=== PATIENT | female | born 2000 | race Hispanic/Latino ===

== ENCOUNTER 2024-06-25 18:26 | Emergency (ER) | payer OTHER ==
--- OUTSIDE RECORDS SUMMARY | 2024-06-25 18:32 | XMS REPORT | Continuity of Care Document ---
Author Name Unknown Address [address] [facility] [address] [id number] [facility] Address [address] [facility] [address] [place] [address] Care Team Providers Care Mica Sizer Name Role Phone Cirilo Ivy Attending Clinician Unavailable ELDA WOOD Attending Clinician UnavailNAA Haskins Attending Clinician Unavailab JOCELINE Gamble Attending Clinician Unavailab edi Marie Attending Clinician Unavailable LYUBOV PORTER Attending Clinician Unavaila NIDIA Love Attending Clinician UnavailLUCRETIA Sorensen Attending Clinician Unavailable EDLORES SOTO Attending Clinician Unavailab ASUNCION Cunha Attending Clinician Unavailable NGHIA PATIÑO Attending Clinician Unavailable KAY Attending Clinician Unavailable MALU HINES Attending Clinician Unavailable NATASHA FONTANEZ Attending Clinician Unavailab edi GARCIA Attending Clinician Unavailable JONAH BARAJAS Attending Clinician Unavailable S[place] Attending Clinician Unavail able DARLEEN SIMON Attending Clinician Unavailable JOSE DAVID MILLAN Attending Clinician Unavailable AMY ARECHIGA Attending Clinician Unavailable Cirilo Ivy Admitting Clinician Unavailable UNDEFINED Admitting Clinician Unavailable Cynthia Admitting Clinician Unavailable LYUBOV PORTER Admitting Clinician Unavaila nay VILLANUEVA Admitting Clinician Unavailable RADHA Admitting Clinician Unavailable Payers Payer Name Policy Type Policy Number Effective Date Expirati on Date Source [facility] MEDICAID STAR [id number] 2022 00:00:00 [facility] (MEDICAID REPLACEMENT - HMO) [id number] 2022 00:00:00 [place] [facility] [place] [id number] [place] [id number] [place] [facility] [id number] Problems Condition Name Condition Details Condition Category Status Onset Date Resolution Date Last Treatment Date Treating Clinician Comments Source Eczema Eczema Problem Active 5-02 00:00: 00 [facility] Scar of skin Scar of Skin Problem Active 5-02 00:00: 00 [facility] Iron deficiency anemia of Iron Deficiency Anemia of Problem Active 2022-10 1-02 00:00: 00 [facility] Chlamydia trachomati s infection in Chlamydia Trachomati s Infection in Problem Active 5-04 00:00: 00 [facility] Mild hyperemesi s-not delivered Mild Hyperemesi s-not Delivered Problem Active 4-13 00:00: 00 [facility] Low grade squamous intraepith elial lesion on cervical Papanicola ou smear Low Grade Squamous Intraepith elial Lesion on Cervical Papanicola ou Smear Problem Active 4-13 00:00: 00 [facility] Allergies, Adverse Reactions, Alerts Allergy Name Allergy Type Status Severity Reaction(s) Onset Date Inactive Date Treating Clinician Comments Source doxycycl ine DA Active MO MILLER 8-30 00:00: 00 [facility] No Known Allergie s DA Active U 8-28 00:00: 00 [facility] Social History Smoking Status Start Date Stop Date Source Never Smoker [facility] Medications Ordered Medication Name Filled Medication Name Start Date Stop Date Current Medication? Ordering Clinician Indication Dosage Frequency Signature (SIG) Comments Components Source Ferate 240 mg (27 mg iron) tablet TAKE 1 TABLET BY MOUTH TWICE DAILY Ferate 240 mg (27 mg iron) tablet TAKE 1 TABLET BY MOUTH TWICE DAILY No Ferate 240 mg (27 mg iron) tablet TAKE 1 TABLET BY MOUTH TWICE DAILY [facility] valacyclovi r 500 mg tablet TAKE 1 TABLET BY MOUTH EVERY DAY DIRECTED valacyclovi r 500 mg tablet TAKE 1 TABLET BY MOUTH EVERY DAY DIRECTED No valacyclov ir 500 mg tablet TAKE 1 TABLET BY MOUTH EVERY DAY [facility]ED [facility] triamcinolo ne acetonide 0.1 % topical cream APPLY THIN LAYER TOPICALLY TO THE AFFECTED AREA TWICE DAILY triamcinolo ne acetonide 0.1 % topical cream APPLY THIN LAYER TOPICALLY TO THE AFFECTED AREA TWICE DAILY No triamcinol one acetonide 0.1 % topical cream APPLY THIN LAYER TOPICALLY TO THE AFFECTED AREA TWICE DAILY [facility] Blisovi Fe 1/20 (28) 1 mg-20 mcg (21)/75 mg (7) tablet TAKE 1 TABLET BY MOUTH EVERY DAY [place] Fe 1/20 (28) 1 mg-20 mcg (21)/75 mg (7) tablet TAKE 1 TABLET BY MOUTH EVERY DAY No Blisovi Fe 1/20 (28) 1 mg-20 mcg (21)/75 mg (7) tablet TAKE 1 TABLET BY MOUTH EVERY DAY [facility] h Program Vital Signs Vital Name Observation Time Observation Value Comments S ource BMI (Body Mass Index) 2024-02-23 00:00:00 24.8 kg/m2 [facility] Height 2024-02-23 00:00:00 61 [in_i] [facility] Body Weight 2024-02-23 00:00:00 2096 [oz_av] [facility] BP Diastolic 2024-02-23 00:00:00 65 mm[Hg] [facility] BP Systolic 2024-02-23 00:00:00 102 mm[Hg] [facility] BP Diastolic 2023-12-19 00:00:00 74 mm[Hg] [facility] Height 2023-12-19 00:00:00 61 [in_i] [facility] BMI (Body Mass Index) 2023-12-19 00:00:00 24.4 kg/m2 [facility] Body Weight 2023-12-19 00:00:00 129 [lb_av] [facility] BP Systolic 2023-12-19 00:00:00 116 mm[Hg] [facility] BP Diastolic 2023-09-30 00:00:00 67 mm[Hg] [facility] Height 2023-09-30 00:00:00 61 [in_i] [facility] BP Systolic 2023-09-30 00:00:00 115 mm[Hg] [facility] BMI (Body Mass Index) 2023-09-30 00:00:00 28.7 kg/m2 [facility] Body Weight 2023-09-30 00:00:00 152 [lb_av] [facility] BP Diastolic 2023-09-23 00:00:00 69 mm[Hg] [facility] BP Systolic 2023-09-23 00:00:00 110 mm[Hg] [facility] Body Weight 2023-09-23 00:00:00 151 [lb_av] [facility] Height 2023-09-23 00:00:00 61 [in_i] [facility] BMI (Body Mass Index) 2023-09-23 00:00:00 28.5 kg/m2 [facility] Body Weight 2023-09-09 00:00:00 149.3 [lb_av] [facility] BMI (Body Mass Index) 2023-09-09 00:00:00 28.2 kg/m2 [facility] BP Diastolic 2023-09-09 00:00:00 74 mm[Hg] [facility] BP Systolic 2023-09-09 00:00:00 120 mm[Hg] [facility] Height 2023-09-09 00:00:00 61 [in_i] [facility] Body Weight 2023-08-26 00:00:00 153.9 [lb_av] [facility] BP Systolic 2023-08-26 00:00:00 117 mm[Hg] [facility] BP Diastolic 2023-08-26 00:00:00 64 mm[Hg] [facility] BMI (Body Mass Index) 2023-08-26 00:00:00 29.1 kg/m2 [facility] Height 2023-08-26 00:00:00 61 [in_i] [facility] BP Systolic 2023-07-29 00:00:00 113 mm[Hg] [facility] Height 2023-07-29 00:00:00 61 [in_i] [facility] BP Diastolic 2023-07-29 00:00:00 68 mm[Hg] [facility] BMI (Body Mass Index) 2023-07-29 00:00:00 28.8 kg/m2 [facility] Body Weight 2023-07-29 00:00:00 152.5 [lb_av] [facility] Body Weight 2023-06-24 00:00:00 147.8 [lb_av] [facility] Height 2023-06-24 00:00:00 61 [in_i] [facility] BP Systolic 2023-06-24 00:00:00 105 mm[Hg] [facility] BMI (Body Mass Index) 2023-06-24 00:00:00 27.9 kg/m2 [facility] BP Diastolic 2023-06-24 00:00:00 66 mm[Hg] [facility] Height 2023-05-27 00:00:00 61 [in_i] [facility] BP Systolic 2023-05-27 00:00:00 126 mm[Hg] [facility] BMI (Body Mass Index) 2023-05-27 00:00:00 28.2 kg/m2 [facility] Body Weight 2023-05-27 00:00:00 149 [lb_av] [facility] BP Diastolic 2023-05-27 00:00:00 82 mm[Hg] [facility] BP Diastolic 2023-05-05 00:00:00 74 mm[Hg] [facility] Height 2023-05-05 00:00:00 61 [in_i] [facility] BMI (Body Mass Index) 2023-05-05 00:00:00 27.8 kg/m2 [facility] BP Systolic 2023-05-05 00:00:00 115 mm[Hg] [facility] Body Weight 2023-05-05 00:00:00 147.1 [lb_av] [facility] BP Diastolic 2023-04-01 00:00:00 71 mm[Hg] [facility] Height 2023-04-01 00:00:00 61 [in_i] [facility] BMI (Body Mass Index) 2023-04-01 00:00:00 27.3 kg/m2 [facility] BP Systolic 2023-04-01 00:00:00 106 mm[Hg] [facility] Body Weight 2023-04-01 00:00:00 144.4 [lb_av] [facility] BP Diastolic 2023-02-24 00:00:00 69 mm[Hg] [facility] Height 2023-02-24 00:00:00 61 [in_i] [facility] BMI (Body Mass Index) 2023-02-24 00:00:00 27.5 kg/m2 [facility] BP Systolic 2023-02-24 00:00:00 105 mm[Hg] [facility] Body Weight 2023-02-24 00:00:00 145.7 [lb_av] [facility] BP Diastolic 2022-02-03 00:00:00 66 mm[Hg] [facility] Height 2022-02-03 00:00:00 61 [in_i] [facility] BMI (Body Mass Index) 2022-02-03 00:00:00 27.1 kg/m2 [facility] BP Systolic 2022-02-03 00:00:00 101 mm[Hg] [facility] Body Weight 2022-02-03 00:00:00 143.21 [lb_av] [facility] BP Diastolic 2022-01-20 00:00:00 61 mm[Hg] [facility] Height 2022-01-20 00:00:00 61 [in_i] [facility] BMI (Body Mass Index) 2022-01-20 00:00:00 27.2 kg/m2 [facility] BP Systolic 2022-01-20 00:00:00 103 mm[Hg] [facility] Body Weight 2022-01-20 00:00:00 143.9 [lb_av] [facility] BP Diastolic 2021-12-23 00:00:00 78 mm[Hg] [facility] Height 2021-12-23 00:00:00 61 [in_i] [facility] BMI (Body Mass Index) 2021-12-23 00:00:00 26.9 kg/m2 [facility] BP Systolic 2021-12-23 00:00:00 120 mm[Hg] [facility] Body Weight 2021-12-23 00:00:00 142.2 [lb_av] [facility] BP Diastolic 2021-12-15 00:00:00 76 mm[Hg] [facility] Height 2021-12-15 00:00:00 61 [in_i] [facility] BMI (Body Mass Index) 2021-12-15 00:00:00 26.8 kg/m2 [facility] BP Systolic 2021-12-15 00:00:00 118 mm[Hg] [facility] Body Weight 2021-12-15 00:00:00 142 [lb_av] [facility] Procedures Procedure Date / Time Performed Performing Clinician Source [id number] 2024-06-21 00:00:00 ANTHONY [facility] Delivery 2023-10-07 00:00:00 [facility] US, obstetric, limited 2023-09-23 00:00:00 [facility] US, obstetric, limited 2023-08-26 00:00:00 [facility] ULTRASOUND REPEAT 2023-07-28 00:00:00 [facility] US, obstetric, limited 2023-05-05 00:00:00 [facility] ULTRASOUND, UTERUS REAL TIME WITH IMAGE DOC, AND MATERNAL EVAL PLUS DETAILED ANATOMIC EXAMINATION, TRANSABDOMINAL APPROACH; SINGLE OR FIRST GESTATION 2023-05-05 00:00:00 [facility] US, obstetric, limited 2023-04-01 00:00:00 [facility] ULTRASOUND, UTERUS REAL TIME WITH IMAGE DOCUMENTAITON, TRANSVAGINAL 2023-02-24 00:00:00 [facility] ULTRASOUND, UTERUS REAL TIME WITH IMAGE DOCUMENTAITON, TRANSVAGINAL 2022-02-03 00:00:00 [facility] ULTRASOUND, UTERUS REAL TIME WITH IMAGE DOCUMENTAITON, TRANSVAGINAL 2022-01-20 00:00:00 [facility] Plan of Care Planned Activity Planned Date Details Comments Source Diagnostic Test Pending 2021-12-23 00:00:00 HIV 1 + 2, meaningful use set [code = HIV 1 + 2, meaningful use set] [facility] Diagnostic Test Pending 2021-12-23 00:00:00 RPR (rapid plasma reagin), serum [code = RPR (rapid plasma reagin), serum] [facility] Diagnostic Test Pending 2021-12-23 00:00:00 HBsAg (hepatitis B surface Ag), EIA, serum [code = HBsAg (hepatitis B surface Ag), EIA, serum] [facility] Diagnostic Test Pending 2021-12-23 00:00:00 cytology report, thin prep, smear or scraping, cervical or vaginal [code = cytology report, thin prep, smear or scraping, cervical or vaginal] [facility] Encounters Start Date/Time End Date/Time Encounter Type Admission Type Attending Clinicians Care Facility Care Department Encounter ID Source 2023-05-20 11:16:06 Outpatient [facility] [id number] [facility] 2023-05-13 11:09:58 Outpatient [facility] [id number] [facility] 2024-06-20 21:38:00 2024-06-25 00:47:00 Inpatient EM Cirilo Ivy [facility] [id number] [address] [place] [address] 2024-06-20 08:21:00 2024-06-20 18:05:00 Emergency ER ELDA WOOD [facility] [id number] [facility] 2024-05-21 09:51:00 2024-05-21 11:36:00 Emergency ER NAA LIM [facility] [id number] [facility] 2024-02-23 15:32:00 2024-02-23 15:32:00 Outpatient JOCELINE DE GUZMAN [facility] [id number] [facility] 2024-02-23 00:00:00 2024-02-23 00:00:00 Joceline Liao, CRIMINAL JUSTICE DEPARTMENT CHAIR: [address], [address], [place] [address] , Ph. MMG [facility] [id number] [facility] 2024-01-04 00:00:00 2024-01-04 00:00:00 Outpatient White_M MMG [facility] [id number] [facility] 2023-12-19 00:00:00 2023-12-19 00:00:00 Lyubov Porter MD: [address], [address], [place] [address] , Ph. [phone] MM[facility] [id number] [facility] 2023-12-16 00:00:00 2023-12-16 00:00:00 Outpatient White_M MMG [facility] [id number] [facility] 2023-10-13 00:00:00 2023-10-13 00:00:00 Outpatient White_M MMG MM[facility] [id number] [facility] 2023-10-06 19:24:00 2023-10-09 08:10:00 Inpatient LYUBOV [facility] [id number] [facility] 2023-09-30 00:00:00 2023-09-30 00:00:00 Lyubov Porter MD: [address], [address], [place] [address] , Ph. [phone] [facility] [id number] [facility] 2023-09-28 20:08:00 2023-09-28 22:05:00 Emergency ER LYUBOV PORTER [facility] [id number] [facility] 2023-09-26 00:00:00 2023-09-26 00:00:00 Outpatient White_M MMG [facility] [id number] [facility] 2023-09-23 00:00:00 2023-09-23 00:00:00 Lyubov Porter MD: [address], [address], [place] [address] , Ph. [phone] [facility] [id number] [facility] 2023-09-09 10:29:00 2023-09-09 11:20:00 Emergency ER LYUBOV PORTER [facility] [id number] [facility] 2023-09-09 00:00:00 2023-09-09 00:00:00 Lyubov Porter MD: [address], [address], [place] [address] , Ph. [phone] [facility] [id number] [facility] 2023-08-26 12:31:00 2023-08-26 15:00:00 Emergency ER LYUBOV PORTER [facility] [id number] [facility] 2023-08-26 00:00:00 2023-08-26 00:00:00 Lyubov Porter MD: [address], [address], [place] [address] , Ph. [phone] [facility] [id number] [facility] 2023-08-25 09:34:00 2023-08-25 13:50:00 Emergency ER NIDIA TORRES [facility] [id number] [facility] 2023-08-22 21:37:00 2023-08-22 23:10:00 Emergency ER LYUBOV PORTER [facility] [id number] [facility] 2023-08-02 00:00:00 2023-08-02 00:00:00 Outpatient White_M MMG MMG [id number] [facility] 2023-08-02 00:00:00 2023-08-02 00:00:00 Outpatient White_M MMG MMG [id number] [facility] 2023-08-02 00:00:00 2023-08-02 00:00:00 Outpatient White_M MMG MMG [id number] [facility] 2023-08-02 00:00:00 2023-08-02 00:00:00 Outpatient White_M MMG MMG [id number] [facility] 2023-07-29 09:21:00 2023-07-29 09:21:00 Outpatient DORIS PORTER LYUBOV [facility] [id number] [facility] 2023-07-29 00:00:00 2023-07-29 00:00:00 Outpatient White_M MMG MMG [id number] [facility] 2023-07-29 00:00:00 2023-07-29 00:00:00 Lyubov Porter MD: [address] [place] [address], [address], [place] [address] , Ph. [phone] MMG [facility] [id number] [facility] 2023-07-28 00:00:00 2023-07-28 00:00:00 Lyubov Porter MD: [address], [address], [place] [address] , Ph. [phone] MMG [facility] [id number] [facility] 2023-07-11 09:16:00 2023-07-11 11:00:00 Emergency ER GERMAN LYUBOV [facility] [id number] [facility] 2023-06-30 00:00:00 2023-06-30 00:00:00 Outpatient White_M MMG MMG [id number] [facility] 2023-06-30 00:00:00 2023-06-30 00:00:00 Outpatient White_M MMG MMG [id number] [facility] 2023-06-24 00:00:00 2023-06-24 00:00:00 [facility] [address], [address], [place] [address] , Ph. [phone] MMG [facility] [place] - [facility]BGYN [id number] [facility] 2023-05-27 10:09:00 2023-05-27 10:09:00 Outpatient DORIS LUCRETIA DAVIS [facility] [id number] [facility] 2023-05-27 00:00:00 2023-05-27 00:00:00 Outpatient White_M MMG MMG [id number] [facility] 2023-05-27 00:00:00 2023-05-27 00:00:00 Outpatient White_M MMG MMG [id number] [facility] 2023-05-27 00:00:00 2023-05-27 00:00:00 Lyubov Porter MD: [address], [address], [place] [address] , Ph. [phone] [facility] [id number] [facility] 2023-05-11 10:06:00 2023-05-11 12:21:00 Emergency ER ELDA WOOD [facility] [id number] [facility] 2023-05-05 00:00:00 2023-05-05 00:00:00 Lucretia Davis [facility]: [address], [address], [place] [address] , Ph. [phone] MMG [facility] [id number] [facility] 2023-05-02 19:27:00 2023-05-02 21:29:00 Emergency ER DELORES SOTO [facility] [id number] [facility] 2023-04-15 00:00:00 2023-04-15 00:00:00 Outpatient White_M MMG MMG [id number] [facility] 2023-04-15 00:00:00 2023-04-15 00:00:00 Outpatient White_M MMG MMG [id number] [facility] 2023-04-01 00:00:00 2023-04-01 00:00:00 Lucretia Davis [facility]-: [address], [address], [place] [address] , Ph. [phone] MMG [facility] [id number] [facility] 2023-03-18 22:24:00 2023-03-19 05:20:00 Emergency ER ASUNCION PRUITT [facility] [id number] [facility] 2023-03-11 00:00:00 2023-03-11 00:00:00 Outpatient White_M MMG MMG [id number] [facility] 2023-03-11 00:00:00 2023-03-11 00:00:00 Outpatient White_M MMG MMG [id number] [facility] 2023-02-24 13:11:00 2023-02-24 13:11:00 Outpatient DORIS WALKERPAPraveen NIDIA [facility] [id number] [facility] 2023-02-24 00:00:00 2023-02-24 00:00:00 Outpatient White_M MMG MMG [id number] [facility] 2023-02-24 00:00:00 2023-02-24 00:00:00 Nidia Torres MD: [address], [address], [place] [address] , Ph. [phone] MMG [facility] [id number] [facility] 2023-02-17 20:23:00 2023-02-18 00:50:00 Emergency ER ASUNCION PRUITT [facility] [id number] [facility] 2023-02-15 20:31:00 2023-02-15 21:36:00 Emergency ER NAA LIM [facility] [id number] [facility] 2023-02-04 03:22:00 2023-02-04 03:41:00 Emergency ER ELDA WOOD [facility] [id number] [facility] 2022-12-21 19:08:00 2022-12-21 23:40:00 Emergency ER NAA LIM [facility] [id number] [facility] 2022-12-06 06:30:00 2022-12-06 08:05:00 Emergency ER NGHIA PATIÑO [facility] [id number] [facility] 2022-06-18 00:00:00 2022-06-18 00:00:00 Outpatient LISTER_MELI NATALIE [facility] [id number] [facility] 2022-06-18 00:00:00 2022-06-18 00:00:00 Outpatient LISTER_MELI SSA [facility] [id number] [facility] 2022-02-08 01:47:00 2022-02-08 04:37:00 Emergency ER MALU HINES [facility] [id number] [facility] 2022-02-06 14:09:00 2022-02-06 17:04:00 Emergency ER NAA LIM [facility] [id number] [facility] 2022-02-03 16:12:00 2022-02-03 16:12:00 Outpatient LUCRETIA STOUT [facility] [id number] [facility] 2022-02-03 00:00:00 2022-02-03 00:00:00 Outpatient White_M MMG [facility] [id number] [facility] 2022-02-03 00:00:00 2022-02-03 00:00:00 Lucretiashane Davis [employer] [employer]: [address], [place] [address] , Ph. [phone] MMG [facility] [id number] [facility] 2022-01-29 05:01:00 2022-01-29 05:01:00 Outpatient White_[place] G [id number] [facility] 2022-01-22 15:25:00 2022-01-22 15:25:00 Outpatient LUCRETIA STOUT [facility] [id number] [facility] 2022-01-21 11:14:00 2022-01-21 11:14:00 Outpatient White_M MMG MMG [id number] [facility] 2022-01-20 16:01:00 2022-01-20 16:01:00 Outpatient LUCRETIA STOUT [facility] [id number] [facility] 2022-01-20 03:48:00 2022-01-20 03:48:00 Outpatient [facility] [id number] [facility] 2022-01-20 00:00:00 2022-01-20 00:00:00 JOHNATHAN ChongP-BC: [address] [facility] [address], [place] [address] , Ph. [phone] [facility] [place] [id number] [facility] 2022-01-17 11:45:00 2022-01-17 13:15:00 Emergency ER NATASHA FONTANEZ [facility] [id number] [facility] 2021-12-23 05:48:00 2021-12-23 05:48:00 Outpatient AMADO ESTRADA [facility] [id number] [facility] 2021-12-23 00:00:00 2021-12-23 00:00:00 Joceline Millan, CRIMINAL JUSTICE DEPARTMENT CHAIR: [address], [place] [address] , Ph. [facility] HOP - [facility] TRANSITIONAL CARE NURSE [id number] [facility] 2021-12-15 03:55:00 2021-12-15 03:55:00 Outpatient ALXEI NATALIE [facility] [id number] [facility] 2021-12-15 00:00:00 2021-12-15 00:00:00 Joceline Millan, CRIMINAL JUSTICE DEPARTMENT CHAIR: [address], [place] [address] , Ph. [facility] HOP - [facility] TRANSITIONAL CARE NURSE [id number] [facility] 2021-12-09 05:49:00 2021-12-09 05:49:00 Outpatient KAMI_JADAI SSA [facility] [id number] [facility] 2021-11-02 09:41:00 2021-11-02 09:41:00 Outpatient NEESE_NICANOR TXMIGUEL [facility] [id number] [facility] 2021-08-06 08:07:00 2021-08-06 11:28:00 Emergency ER JONAH BARAJAS [facility] [id number] [facility] 2020-03-14 03:27:00 2020-03-14 03:27:00 Outpatient NEESE_NICANOR TXMIGUEL [facility] [id number] [facility] 2020-03-13 03:16:00 2020-03-13 03:16:00 Outpatient NEESE_NICANOR LEVIN [facility] [id number] [facility] 2019-11-20 13:30:00 2019-11-20 14:16:00 Emergency ER SAURABH [facility] [id number] [facility] 2019-04-28 14:07:00 2019-04-28 15:15:00 Emergency ER DARLEEN SIMON [facility] [id number] [facility] 2019-04-14 01:59:00 2019-04-14 05:10:00 Emergency ER MONTY JOSE DAVID [facility] [id number] [facility] 2019-03-24 07:08:00 2019-03-24 10:15:00 Emergency ER AMY ARECHIGA [facility] [id number] [facility] Results Test Description Test Time Test Comments Results Result Co mments Source [id number] 10:27:00* Test Item Value Reference Range Interpretation Comme nts FERRITIN (test code = BERNARD) 221.8 ng/mL 11.0-306.8 N COMPREHENSIVE METABOLIC [id number] 04:57:00* Test Item Value Reference Range Interpretation Comme nts SODIUM (test code = NA) 144 mEq/L 134-147 N POTASSIUM (test code = K) 3.6 mEq/L 3.4-5.0 N CHLORIDE (test code = CL) 109 mEq/L 100-108 H CARBON DIOXIDE (test code = CO2) 26 mEq/l 21-33 N ANION GAP (test code = GAP) 13 0-20 N GLUCOSE (test code = GLU) 94 mg/dL 77-141 N BLOOD UREA NITROGEN (test code = BUN) 6 mg/dL 7-25 L GLOMERULAR FILTRATION RATE (test code = GFR) 129.3 110-120 H The Glomerular Filtration Rate is a calculated parameterbased on serum Creatinine, patient age and sex. GFR valuesless than 60 mL/min/1.73 square meters are indicative ofChronic Kidney Disease. Values less than 15 mL/min/1.73square meters indicate Kidney failure. The calculation forGFR is based on the CKD-EPI (2020) calculation. This formulais race indifferent and is the recommended formula for GFRby the National Kidney Foundation for Adults.The GFR will not calculate if the sex is unknown or if thepatient's age is <18 years. CREATININE (test code = CREAT) 0.6 mg/dL 0.6-1.3 N TOTAL PROTEIN (test code = PROT) 6.3 g/dL 6.4-8.2 L ALBUMIN (test code = ALB) 2.80 g/dL 3.4-5.0 L CALCIUM (test code = CA) 9.1 mg/dL 8.0-10.5 N BILIRUBIN TOTAL (test code = BILT) 0.20 mg/dL 0.0-1.0 N SGOT/AST (test code = AST) 21 IUnit/L 8-34 N SGPT/ALT (test code = ALT) 25 IUnit/L 10-49 N ALKALINE PHOSPHATASE TOTAL (test code = ALKP) 76 IUnit/L 20-125 N [id number] 04:57:00* Test Item Value Reference Range Interpretation Comme nts PHOSPHOROUS (test code = PHOS) 4.3 MG/DL 2.5-4.9 N [id number] 04:57:00* Test Item Value Reference Range Interpretation Comme nts MAGNESIUM (test code = MAG) 1.68 mg/dL 1.6-2.6 N CALCIUM [id number] 04:57:00* Test Item Value Reference Range Interpretation Comme nts CALCIUM IONIZED (test code = JOSE ANGEL) 1.18 MMOL/L 1.09-1.30 N CBC W/AUTO [id number] 03:44:00* Test Item Value Reference Range Interpretation Comme nts WHITE BLOOD CELL (test code = WBC) 5.2 x10 3/uL 4.5-11.0 N RED BLOOD CELL (test code = RBC) 2.46 x10 6/uL 3.54-5.02 L HEMOGLOBIN (test code = HGB) 7.3 g/dL 11.0-15.0 L HEMATOCRIT (test code = HCT) 23.0 % 33.0-45.0 L MEAN CELL VOLUME (test code = MCV) 93.5 fL 81.0-99.0 N MEAN CELL HGB (test code = MCH) 29.7 pg 27.0-33.0 N MEAN CELL HGB CONCETRATION (test code = MCHC) 31.7 g/dL 33.0-37.0 L RED CELL DISTRIBUTION WIDTH CV (test code = RDW) 13.6 % 11.5-14.5 N RED CELL DISTRIBUTION WIDTH SD (test code = RDW-SD) 46.7 fL 37.0-54.0 N PLATELET COUNT (test code = PLT) 184 x10 3/uL 150-400 N MEAN PLATELET VOLUME (test c ode = MPV) 13.0 fL 7.0-9.0 H NEUTROPHIL % (test code = NT%) 42.7 % 56.0-77.0 L IMMATURE GRANULOCYTE % (test code = IG%) 0.2 % 0.0-2.0 N LYMPHOCYTE % (test code = LY%) 51.0 % 14.0-32.0 H MONOCYTE % (test code = MO%) 4.1 % 4.8-9.0 L EOSINOPHIL % (test code = EO%) 1.4 % 0.3-3.7 N BASOPHIL % (test code = BA%) 0.6 % 0.0-2.0 N NUCLEATED RBC % (test code = NRBC%) 0.0 % 0-0 N NEUTROPHIL # (test code = NT#) 2.22 x10 3/uL 2.0-7.6 N IMMATURE GRANULOCYTE # (test code = IG#) 0.01 x10 3/uL 0.00-0.03 N LYMPHOCYTE # (test code = LY#) 2.64 x10 3/uL 1.0-3.8 N MONOCYTE # (test code = MO#) 0.21 x10 3/uL 0.1-0.8 N EOSINOPHIL # (test code = EO#) 0.07 x10 3/uL 0.0-0.2 N BASOPHIL # (test code = BA#) 0.03 x10 3/uL 0.0-0.2 N NUCLEATED RBC # (test code = NRBC#) 0.00 x10 3/uL 0.0-0.1 N CALCIUM [id number] 11:08:00* Test Item Value Reference Range Interpretation Comme nts CALCIUM IONIZED (test code = JOSE ANGEL) 1.11 mmol/L 1.09-1.30 CALCIUM [id number] 11:08:00* Test Item Value Reference Range Interpretation Comme nts CALCIUM IONIZED (test code = JOSE ANGEL) 1.11 mmol/L 1.09-1.30 N COMPREHENSIVE METABOLIC [id number] 07:02:00* Test Item Value Reference Range Interpretation Comme nts SODIUM (test code = NA) 141 mEq/L 134-147 N POTASSIUM (test code = K) 3.7 mEq/L 3.4-5.0 N CHLORIDE (test code = CL) 108 mEq/L 100-108 N CARBON DIOXIDE (test code = CO2) 26 mEq/l 21-33 N ANION GAP (test code = GAP) 10 0-20 N GLUCOSE (test code = GLU) 98 mg/dL 77-141 N BLOOD UREA NITROGEN (test code = BUN) 6 mg/dL 7-25 L GLOMERULAR FILTRATION RATE (test code = GFR) 129.3 110-120 H The Glomerular Filtration Rate is a calculated parameterbased on serum Creatinine, patient age and sex. GFR valuesless than 60 mL/min/1.73 square meters are indicative ofChronic Kidney Disease. Values less than 15 mL/min/1.73square meters indicate Kidney failure. The calculation forGFR is based on the CKD-EPI (2020) calculation. This formulais race indifferent and is the recommended formula for GFRby the National Kidney Foundation for Adults.The GFR will not calculate if the sex is unknown or if thepatient's age is <18 years. CREATININE (test code = CREAT) 0.6 mg/dL 0.6-1.3 N TOTAL PROTEIN (test code = PROT) 5.7 g/dL 6.4-8.2 L ALBUMIN (test code = ALB) 2.50 g/dL 3.4-5.0 L CALCIUM (test code = CA) 8.7 mg/dL 8.0-10.5 N BILIRUBIN TOTAL (test code = BILT) < 0.20 mg/dL 0.0-1.0 N SGOT/AST (test code = AST) 18 IUnit/L 8-34 N SGPT/ALT (test code = ALT) 19 IUnit/L 10-49 N ALKALINE PHOSPHATASE TOTAL (test code = ALKP) 66 IUnit/L 20-125 N [id number] 07:02:00* Test Item Value Reference Range Interpretation Comme nts PHOSPHOROUS (test code = PHOS) 3.0 MG/DL 2.5-4.9 N [id number] 07:02:00* Test Item Value Reference Range Interpretation Comme nts MAGNESIUM (test code = MAG) 1.78 mg/dL 1.6-2.6 N CBC W/AUTO [id number] 05:14:00* Test Item Value Reference Range Interpretation Comme nts WHITE BLOOD CELL (test code = WBC) 6.3 x10 3/uL 4.5-11.0 N RED BLOOD CELL (test code = RBC) 2.86 x10 6/uL 3.54-5.02 L HEMOGLOBIN (test code = HGB) 8.6 g/dL 11.0-15.0 L HEMATOCRIT (test code = HCT) 26.8 % 33.0-45.0 L MEAN CELL VOLUME (test code = MCV) 93.7 fL 81.0-99.0 N MEAN CELL HGB (test code = MCH) 30.1 pg 27.0-33.0 N MEAN CELL HGB CONCETRATION (test code = MCHC) 32.1 g/dL 33.0-37.0 L RED CELL DISTRIBUTION WIDTH CV (test code = RDW) 13.4 % 11.5-14.5 N RED CELL DISTRIBUTION WIDTH SD (test code = RDW-SD) 46.0 fL 37.0-54.0 N PLATELET COUNT (test code = PLT) 150 x10 3/uL 150-400 N MEAN PLATELET VOLUME (test c ode = MPV) 12.5 fL 7.0-9.0 H NEUTROPHIL % (test code = NT%) 56.1 % 56.0-77.0 N IMMATURE GRANULOCYTE % (test code = IG%) 0.2 % 0.0-2.0 N LYMPHOCYTE % (test code = LY%) 36.6 % 14.0-32.0 H MONOCYTE % (test code = MO%) 6.0 % 4.8-9.0 N EOSINOPHIL % (test code = EO%) 0.8 % 0.3-3.7 N BASOPHIL % (test code = BA%) 0.3 % 0.0-2.0 N NUCLEATED RBC % (test code = NRBC%) 0.0 % 0-0 N NEUTROPHIL # (test code = NT#) 3.55 x10 3/uL 2.0-7.6 N IMMATURE GRANULOCYTE # (test code = IG#) 0.01 x10 3/uL 0.00-0.03 N LYMPHOCYTE # (test code = LY#) 2.31 x10 3/uL 1.0-3.8 N MONOCYTE # (test code = MO#) 0.38 x10 3/uL 0.1-0.8 N EOSINOPHIL # (test code = EO#) 0.05 x10 3/uL 0.0-0.2 N BASOPHIL # (test code = BA#) 0.02 x10 3/uL 0.0-0.2 N NUCLEATED RBC # (test code = NRBC#) 0.00 x10 3/uL 0.0-0.1 N SED RATE [id number] 12:53:00* Test Item Value Reference Range Interpretation Comme nts SED RATE WESTERGREN (test co de = SEDW) 69 mm/hr 0-20 H CREATINE KINASE (CK)2024-06-22 12:09:00* Test Item Value Reference Range Interpretation Comme nts CREATINE KINASE (CK) (test code = CK) 47 Units/L 34-145 N SPECIMEN SLIGHT LY HEMOLYZED.Results known to be adversely affected by hemolysis are: Potassium Magnesium LDH Phosphorus C REACTIVE [id number] 12:08:00* Test Item Value Reference Range Interpretation Comme nts C REACTIVE PROTEIN (test cod e = CRP) 223.0 mg/L <10.0 H VANCOMYCIN [id number] 12:07:00* Test Item Value Reference Range Interpretation Comme nts VANCOMYCIN TROUGH (test code = VANCT) < 3.0 mcg/mL 10.0-20.0 L 10-15 mcg/mL - Cellulitis, Urinary Tract Infection. 15-20 mcg/mL - Bacteremia, Infective Endocarditis, Meningitis, Osteomyelitis, Pneumonia, Severe Skin/Soft-Tissue Infection, Spinal Abscess. COMMENTS: Please draw 30 minutes BEFORE giving dose of vancomycinCOMPREHENSIVE METABOLIC [id number] 04:30:00* Test Item Value Reference Range Interpretation Comme nts SODIUM (test code = NA) 137 mEq/L 134-147 N POTASSIUM (test code = K) 3.6 mEq/L 3.4-5.0 N CHLORIDE (test code = CL) 110 mEq/L 100-108 H CARBON DIOXIDE (test code = CO2) 25 mEq/l 21-33 N ANION GAP (test code = GAP) 6 0-20 N GLUCOSE (test code = GLU) 108 mg/dL 77-141 N BLOOD UREA NITROGEN (test code = BUN) 6 mg/dL 7-25 L GLOMERULAR FILTRATION RATE (test code = GFR) 129.3 110-120 H The Glomerular Filtration Rate is a calculated parameterbased on serum Creatinine, patient age and sex. GFR valuesless than 60 mL/min/1.73 square meters are indicative ofChronic Kidney Disease. Values less than 15 mL/min/1.73square meters indicate Kidney failure. The calculation forGFR is based on the CKD-EPI (202) calculation. This formulais race indifferent and is the recommended formula for GFRby the National Kidney Foundation for Adults.The GFR will not calculate if the sex is unknown or if thepatient's age is <18 years. CREATININE (test code = CREAT) 0.6 mg/dL 0.6-1.3 N TOTAL PROTEIN (test code = PROT) 5.7 g/dL 6.4-8.2 L ALBUMIN (test code = ALB) 2.50 g/dL 3.4-5.0 L CALCIUM (test code = CA) 8.4 mg/dL 8.0-10.5 N BILIRUBIN TOTAL (test code = BILT) 0.20 mg/dL 0.0-1.0 N SGOT/AST (test code = AST) 23 IUnit/L 8-34 N SGPT/ALT (test code = ALT) 21 IUnit/L 10-49 ALKALINE PHOSPHATASE TOTAL (test code = ALKP) 65 IUnit/L 20-125 N [id number] 04:30:00* Test Item Value Reference Range Interpretation Comme nts PHOSPHOROUS (test code = PHOS) 2.9 MG/DL 2.5-4.9 [id number] 04:30:00* Test Item Value Reference Range Interpretation Comme nts MAGNESIUM (test code = MAG) 1.67 mg/dL 1.6-2.6 N CALCIUM [id number] 04:30:00* Test Item Value Reference Range Interpretation Comme nts CALCIUM IONIZED (test code = JOSE ANGEL) 1.15 MMOL/L 1.09-1.30 N CBC W/AUTO [id number] 04:00:00* Test Item Value Reference Range Interpretation Comme nts WHITE BLOOD CELL (test code = WBC) 9.3 x10 3/uL 4.5-11.0 N RED BLOOD CELL (test code = RBC) 2.92 x10 6/uL 3.54-5.02 L HEMOGLOBIN (test code = HGB) 8.8 g/dL 11.0-15.0 L HEMATOCRIT (test code = HCT) 27.0 % 33.0-45.0 L MEAN CELL VOLUME (test code = MCV) 92.5 fL 81.0-99.0 N MEAN CELL HGB (test code = MCH) 30.1 pg 27.0-33.0 N MEAN CELL HGB CONCETRATION (test code = MCHC) 32.6 g/dL 33.0-37.0 L RED CELL DISTRIBUTION WIDTH CV (test code = RDW) 13.2 % 11.5-14.5 N RED CELL DISTRIBUTION WIDTH SD (test code = RDW-SD) 44.6 fL 37.0-54.0 N PLATELET COUNT (test code = PLT) 136 x10 3/uL 150-400 L MEAN PLATELET VOLUME (test c ode = MPV) 11.7 fL 7.0-9.0 H NEUTROPHIL % (test code = NT%) 66.0 % 56.0-77.0 N IMMATURE GRANULOCYTE % (test code = IG%) 0.3 % 0.0-2.0 N LYMPHOCYTE % (test code = LY%) 24.2 % 14.0-32.0 N MONOCYTE % (test code = MO%) 8.9 % 4.8-9.0 N EOSINOPHIL % (test code = EO%) 0.3 % 0.3-3.7 N BASOPHIL % (test code = BA%) 0.3 % 0.0-2.0 N NUCLEATED RBC % (test code = NRBC%) 0.0 % 0-0 N NEUTROPHIL # (test code = NT#) 6.11 x10 3/uL 2.0-7.6 N IMMATURE GRANULOCYTE # (test code = IG#) 0.03 x10 3/uL 0.00-0.03 N LYMPHOCYTE # (test code = LY#) 2.24 x10 3/uL 1.0-3.8 N MONOCYTE # (test code = MO#) 0.82 x10 3/uL 0.1-0.8 H EOSINOPHIL # (test code = EO#) 0.03 x10 3/uL 0.0-0.2 N BASOPHIL # (test code = BA#) 0.03 x10 3/uL 0.0-0.2 N NUCLEATED RBC # (test code = NRBC#) 0.00 x10 3/uL 0.0-0.[id number] 20:39:00* Test Item Value Reference Range Interpretation Comme nts CSF TUBE # (test code = BFCSFT) TUBE #3 - CELL COUNT CSF APPEARANCE (test code = APPCSF) CLEAR CLEAR CSF TOTAL NUCLEATED CELL COUNT (test code = WBCCSF) 1 MM3 0-5 N CSF RBC (test code = RBCCSF) 418 MM3 0-0 H CSF POLY (test code = POLYCSF) 13 % 0-7 H CSF LYMPHOCYTE (test code = LYMPHCSF) 74 % 28-96 N CSF MONOCYTE (test code = MONOCSF) 13 % 16-56 L CSF EOSINOPHIL (test code = EOSCSF) 0 % CSF BASOPHIL (test code = BASOCSF) 0 % CSF MACROPHAGE (test code = MACCSF) 0 % COMMENTS: PLEASE USE TUBE #3CSF TOTAL [id number] 20:39:00* Test Item Value Reference Range Interpretation Comme nts CSF TOTAL PROTEIN (test code = PROTCSF) TEST NOT PERFORMED mg/dL 15-45 COMMENTS: PLEASE USE TUBE #3CSF [id number] 16:48:00* Test Item Value Reference Range Interpretation Comme nts CSF COLOR (test code = COLCSF) COLORLESS COLORLESS CSF TUBE # (test code = TUBECSF) TUBE #1 - GLU/PROT CSF GLUCOSE (test code = GLUCSF) 63 MG/DL 40-80 N CSF TOTAL PROTEIN (test code = PROTCSF) 30.0 mg/dL 15-45 N COMMENTS: PLEASE USE TUBE #2AB HIV 1 12:38:00* Test Item Value Reference Range Interpretation Comme nts AB HIV 1 2 (test code = QDK25HB) Nonreactive Nonreactive COMPREHENSIVE METABOLIC [id number] 12:16:00* Test Item Value Reference Range Interpretation Comme nts SODIUM (test code = NA) 133 mEq/L 134-147 L POTASSIUM (test code = K) 3.9 mEq/L 3.4-5.0 N CHLORIDE (test code = CL) 106 mEq/L 100-108 N CARBON DIOXIDE (test code = CO2) 24 mEq/l 21-33 N ANION GAP (test code = GAP) 7 0-20 N GLUCOSE (test code = GLU) 109 mg/dL 77-141 N BLOOD UREA NITROGEN (test code = BUN) 8 mg/dL 7-25 N GLOMERULAR FILTRATION RATE (test code = GFR) 124.6 110-120 H The Glomerular Filtration Rate is a calculated parameterbased on serum Creatinine, patient age and sex. GFR valuesless than 60 mL/min/1.73 square meters are indicative ofChronic Kidney Disease. Values less than 15 mL/min/1.73square meters indicate Kidney failure. The calculation forGFR is based on the CKD-EPI (2021) calculation. This formulais race indifferent and is the recommended formula for GFRby the National Kidney Foundation for Adults.The GFR will not calculate if the sex is unknown or if thepatient's age is <18 years. CREATININE (test code = CREAT) 0.7 mg/dL 0.6-1.3 N TOTAL PROTEIN (test code = PROT) 6.5 g/dL 6.4-8.2 N ALBUMIN (test code = ALB) 3.10 g/dL 3.4-5.0 L CALCIUM (test code = CA) 8.7 mg/dL 8.0-10.5 N BILIRUBIN TOTAL (test code = BILT) 0.40 mg/dL 0.0-1.0 N SGOT/AST (test code = AST) 16 IUnit/L 8-34 N SGPT/ALT (test code = ALT) 11 IUnit/L 10-49 N ALKALINE PHOSPHATASE TOTAL (test code = ALKP) 75 IUnit/L 20-125 N COMMENTS: [id number] 12:16:00* Test Item Value Reference Range Interpretation Comme nts PHOSPHOROUS (test code = PHOS) 1.9 MG/DL 2.5-4.9 L COMMENTS: [id number] 12:16:00* Test Item Value Reference Range Interpretation Comme nts MAGNESIUM (test code = MAG) 1.78 mg/dL 1.6-2.6 N COMMENTS: CSFTHYROID STIMULATING [id number] 12:16:00* Test Item Value Reference Range Interpretation Comme nts THYROID STIMULATING HORMONE (test code = TSH) 1.28 0.42-5.47 N Result s in osito-International Units/mL COMMENTS: CSFTROP-I HIGH [id number] 12:16:00* Test Item Value Reference Range Interpretation Comme nts TROP-I HIGH SENSITIVITY (test code = TROPIHS) < 3 ng/L 0-34 N CAUTION: Units o f the current test methodology (ng/L) differfrom the prior test methodology (ng/mL) by a factor of 1000. 99th Percentile Upper Reference Limit (URL): Females: 34 ng/LMales: 54 ng/L In order to distinguish acute elevations of high sensitivitytroponin from other clinical conditions, the FourthUniversal Definition of Myocardial Infarction stressesclinical assessment and the demonstration of a rise and/orfall in serial troponin results above the URL. These results were obtained using [employer] IM TnIHreagent. Results from different methodologies should not becompared to one another as quantitative results and URLs mayvary by method. COMMENTS: CSFCALCIUM [id number] 12:16:00* Test Item Value Reference Range Interpretation Comme [facility] CALCIUM IONIZED (test code = JOSE ANGEL) 1.12 MMOL/L 1.09-1.30 N COMMENTS: [id number] 12:09:00* Test Item Value Reference Range Interpretation Comme nts AMMONIA (test code = AMM) 11 umol/L 11-35 N LACTIC [id number] 12:09:00* Test Item Value Reference Range Interpretation Comme nts LACTIC ACID (test code = LACT) 0.8 mmol/L 0.4-1.9 N PROTHROMBIN [id number] 11:54:00* Test Item Value Reference Range Interpretation Comme nts PROTHROMBIN TIME PATIENT (test code = PTP) 16.1 SECONDS 9.3-12.9 H INTERNATIONAL NORMAL RATIO (test code = INR) 1.5 0.8-1.2 H TARGET INR BY INDICATION Indication INR1. Prophylaxis of venous thrombosis 2.0 - 3.0 (orthopedic surgery), Prophylaxis of venous thrombosis (other than high-risk surgery), Treatment of Deep Vein Thrombosis/Pulmonary Embolism, Prevention of systemic embolism - Tissue heart valves, Acute Myocardial Infarction (to prevent systemic embolism), Valvular heart disease, Atrial Fibrillation, Bileaflet mechanical valve in aortic position.2. Mechanical prosthetic valves (high risk), 2.5 - 3.5 Presence of Lupus Anticoagulant or Antiphospholipid Antibodies, Prevention of systemic embolism - Acute Myocardial Infarction (to prevent recurrent infarct). THROMBOPLASTIN TIME [id number] 11:54:00* Test Item Value Reference Range Interpretation Comme [facility] THROMBOPLASTIN TIME PARTIAL (test code = PTT) 34.3 Seconds 25.0-39.5 N Therapeutic Rang e: 50.4 - 88.3 Seconds Effective 02/06/2019 CBC W/AUTO [id number] 11:41:00* Test Item Value Reference Range Interpretation Comme [facility] WHITE BLOOD CELL (test code = WBC) 10.7 x10 3/uL 4.5-11.0 N RED BLOOD CELL (test code = RBC) 3.31 x10 6/uL 3.54-5.02 L HEMOGLOBIN (test code = HGB) 9.9 g/dL 11.0-15.0 L HEMATOCRIT (test code = HCT) 30.9 % 33.0-45.0 L MEAN CELL VOLUME (test code = MCV) 93.4 fL 81.0-99.0 N MEAN CELL HGB (test code = MCH) 29.9 pg 27.0-33.0 N MEAN CELL HGB CONCETRATION (test code = MCHC) 32.0 g/dL 33.0-37.0 L RED CELL DISTRIBUTION WIDTH CV (test code = RDW) 13.2 % 11.5-14.5 N RED CELL DISTRIBUTION WIDTH SD (test code = RDW-SD) 45.3 fL 37.0-54.0 N PLATELET COUNT (test code = PLT) 155 x10 3/uL 150-400 N MEAN PLATELET VOLUME (test c ode = MPV) 11.8 fL 7.0-9.0 H NEUTROPHIL % (test code = NT%) 80.4 % 56.0-77.0 H IMMATURE GRANULOCYTE % (test code = IG%) 0.3 % 0.0-2.0 N LYMPHOCYTE % (test code = LY%) 11.4 % 14.0-32.0 L MONOCYTE % (test code = MO%) 7.7 % 4.8-9.0 N EOSINOPHIL % (test code = EO%) 0.0 % 0.3-3.7 L BASOPHIL % (test code = BA%) 0.2 % 0.0-2.0 N NUCLEATED RBC % (test code = NRBC%) 0.0 % 0-0 N NEUTROPHIL # (test code = NT#) 8.61 x10 3/uL 2.0-7.6 H IMMATURE GRANULOCYTE # (test code = IG#) 0.03 x10 3/uL 0.00-0.03 N LYMPHOCYTE # (test code = LY#) 1.22 x10 3/uL 1.0-3.8 N MONOCYTE # (test code = MO#) 0.83 x10 3/uL 0.1-0.8 H EOSINOPHIL # (test code = EO#) 0.00 x10 3/uL 0.0-0.2 N BASOPHIL # (test code = BA#) 0.02 x10 3/uL 0.0-0.2 N NUCLEATED RBC # (test code = NRBC#) 0.00 x10 3/uL 0.0-0.1 N RESPIRATORY VIRUS PANEL [id number] 04:47:00* Test Item Value Reference Range Interpretation Comments RSV A PCR (test code = RSV A) Negative Negative RSV B PCR (test code = RSV B) Negative Negative INFLUENZA A (test code = FLUAPCR) Negative Negative INFLUENZA A SUBTYPE H1 (test code = FLUAH1) Negative Negative INFLUENZA A SUBTYPE H3 (test code = FLUAH3) Negative Negative INFLUENZA B (test code = FLUBPCR) Negative Negative PARAINFLUENZA TYPE 1 PCR (test code = PIF1) Negative Negative PARAINFLUENZA TYPE 2 PCR (test code = PIF2) Negative Negative PARAINFLUENZA TYPE 3 PCR (test code = PIF3) Negative Negative PARAINFLUENZA TYPE 4 PCR (test code = PIF4) Negative Negative RHINOVIRUS PCR (test code = RHINO) Negative Negative METAPNEUMOVIRUS PCR (test code = METAPNEU) Negative Negative ADENOVIRUS PCR (test code = ADENOPCR) Negative Negative BORDETELLA PERTUSSIS DNA PCR (test code = BORDPERDNA) Negative Negative B PARAPERTUSSIS BY PCR (test code = BPARAPCR) Negative Negative BORDETELLA HOLMESII (test code = BORDHOLM) Negative Negative Testing was perf ormed using nucleic acid amplificationincluding Bordetella parapertussis/brochiseptic a, Bordetella holmesii, and Bordetella pertussis. RVP RESULT COMMENT (test code = RVPCOMM) RVP Comment Comment Testing was perf ormed using nucleic acid amplificationincluding influenza A, influenza A H1, influenza A H3,influenza B, RSV-A, RSV-B, Adenovirus, HumanMetapneumovirus, Parainfluenza 1,2,3 and 4, Rhinovirus, Bordetella parapertussis/brochiseptic a, Bordetella holmesii, and Bordetella pertussis. FLU/COVID +/- RSV result negative prior to ordering RVP: YesDesired post - result action: De-escalate antibioticsUA RFLX MICR CULT IF [id number] 01:40:00* Test Item Value Reference Range Interpretation Comme nts UA COLOR (test code = COLU) DAYDAY YEL/STRAW A UA APPEARANCE (test code = APPU) SL CLOUDY CLEAR UA GLUCOSE DIPSTICK (test co de = DGLUU) NEGATIVE NEGATIVE UA BILIRUBIN DIPSTICK (test code = BILU) NEGATIVE NEGATIVE UA KETONE DIPSTICK (test cod e = KETU) 2+ NEGATIVE A UA SPECIFIC GRAVITY (test co de = SGU) 1.028 1.005-1.030 N UA BLOOD DIPSTICK (test code = SAVANNA) NEGATIVE NEGATIVE UA PH DIPSTICK (test code = LUIS MANUEL) 5.0 5.0-7.0 N UA PROTEIN DIPSTICK (test co de = PROU) 2+ NEGATIVE A UA UROBILINIOGEN DIPSTICK (test code = URO) 0.2 mg/dL 0.2-1.0 UA NITRITE DIPSTICK (test co de = KANNAN) NEGATIVE NEGATIVE UA LEUKOCYTE ESTERASE DIPSTI CK (test code = LEUU) NEGATIVE NEGATIVE UA WBC (test code = WBCU) 4-9 WBC/HPF 0-3 A UA RBC (test code = RBCU) 4-10 RBC/HPF 0-3 UA WBC NO REFLEX (test code = WBCUCL) 4-9 WBC/HPF 0-3 A UA BACTERIA (test code = BACU) NONE SEEN /HPF NONE SEEN UA SQUAMOUS CELLS (test code = SQU) 0-5 /HPF NONE SEEN UA MUCUS (test code = MUCU) 4+ /LPF NONE SEEN A Indication for culture: Temperature > 100.4 FSpecimen Description: STRAIGHT CATH CALCIUM [id number] 01:04:00* Test Item Value Reference Range Interpretation Comme nts CALCIUM IONIZED (test code = JOSE ANGEL) 1.12 MMOL/L 1.09-1.30 N COVID 19 INHOUSE [id number] 22:47:00* Test Item Value Reference Range Interpretation Comme nts COVID 19 INHOUSE AG (test code = [id number]) Negative Negative A negative resul t is presumptive and should be confirmedwith an FDA authorized molecular assay, if necessary forpatient management.A positive result does not rule out co-infections withother pathogens.This test detects both viable (live) and non-viable,SARS-CoV, and SARS-CoV-2. Test performance depends on theamount of virus (antigen) in the sample.This test has not been FDA cleared or approved; the test hasbeen authorized by FDA under an Emergency Use Authorization(EUA) for use by laboratories certified under the CLIA thatmeet the requirements to perform moderate, high or waivedcomplexity tests. thyroid stimulating hormone [id number] 17:09:00* Test Item Value Reference Range Interpretation Comme nts thyroid stimulating hormone L (test code = thyroid stimulating hormone L) 2.37 uIU/mL 0.36-3.74 [facility] HospitalThyroxine (T4[facility] free [Mass/volume] in Serum or Plasma 2024-02-23 17:09:00* Test Item Value Reference Range Interpretation Comme nts free T4 (test code = free T4) 1.16 NG/dL 0.93-1.7 [facility] Hospitalhemoglobin [id number] 16:54:00* Test Item Value Reference Range Interpretation Comme nts Hemoglobin A1c/Hemoglobin.to stephany in Blood (test code = 4548-4) 5.5 % 4.0-6.0 [facility] W Auto Differential panel - [id number] 16:19:00 * Test Item Value Reference Range Interpretation Comme nts white blood count (test code = white blood count) 6.7 K/uL 4.0-11.5 red blood count (test code = red blood count) 4.22 M/uL 3.80-5.20 hemoglobin (test code = hemoglobin) 12.6 g/dL 10.5-15.7 hematocrit (test code = hematocrit) 39.2 % 34.0-50.0 mean corpuscular volume (aurelio t code = mean corpuscular volume) 92.9 fL 86.0-100.0 mean corpuscular hemoglobin (test code = mean corpuscular hemoglobin) 29.9 pg 26.2-33.4 mean corpuscular HGB conc (t est code = mean corpuscular HGB conc) 32.1 g/dL 30.0-34.0 red cell distribution width (test code = red cell distribution width) 14.1 % 12.0-15.5 platelet count (test code = platelet count) 234 K/uL 165-450 mean platelet volume (test c ode = mean platelet volume) 12.3 fL 9.4-12.6 neutrophils % (test code = neutrophils %) 45.0 % 44.4-80.1 Ig% (test code = Ig%) 0.1 % 0.0-0.4 lymphocyte% (test code = lymphocyte%) 47.5 % 10.0-50.0 mono % (test code = mono %) 6.1 % 3.6-12.0 eos % (test code = eos %) 0.9 % 0.0-5.4 basophil % (test code = baso gladys %) 0.4 % 0.1-1.2 absolute neutrophil count (t est code = absolute neutrophil count) 3.02 K/uL 1.56-6.13 Ig# (test code = Ig#) 0.01 K/uL 0.00-0.03 lymph # (test code = lymph #) 3.19 K/uL 1.18-3.74 mono # (test code = mono #) 0.41 K/uL 0.24-0.86 eos # (test code = eos #) 0.06 K/uL 0.04-0.36 basophil # (test code = baso gladys #) 0.03 K/uL 0.01-0.08 NRBC% (test code = NRBC%) 0 /100 WBC 0-0.2 NRBC# (test code = NRBC#) 0 K/uL [facility]he[facility] surface [id number] 07:17:00* Test Item Value Reference Range Interpretation Comme nts .hepatitis B surface antigen (test code = .hepatitis B surface antigen) negative negative [facility] W Auto Differential panel - [id number] 19:59:00 * Test Item Value Reference Range Interpretation Comme nts white blood count (test code = white blood count) 10.3 K/uL 4.0-11.5 red blood count (test code = red blood count) 3.16 M/uL 3.80-5.20 L hemoglobin (test code = hemoglobin) 9.0 g/dL 10.5-15.7 L hematocrit (test code = hematocrit) 28.4 % 34.0-50.0 L mean corpuscular volume (aurelio t code = mean corpuscular volume) 89.9 fL 86.0-100.0 mean corpuscular hemoglobin (test code = mean corpuscular hemoglobin) 28.5 pg 26.2-33.4 mean corpuscular HGB conc (t est code = mean corpuscular HGB conc) 31.7 g/dL 30.0-34.0 red cell distribution width (test code = red cell distribution width) 15.5 % 12.0-15.5 platelet count (test code = platelet count) 124 K/uL 165-450 L ipf# (test code = ipf#) 19.1 ipf% (test code = ipf%) 15.4 % 0-8 H mean platelet volume (test c ode = mean platelet volume) 13.1 fL 9.4-12.6 H neutrophils % (test code = neutrophils %) 72.4 % 44.4-80.1 Ig% (test code = Ig%) 1.1 % 0.0-0.4 H lymphocyte% (test code = lymphocyte%) 20.6 % 10.0-50.0 mono % (test code = mono %) 5.0 % 3.6-12.0 eos % (test code = eos %) 0.6 % 0.0-5.4 basophil % (test code = baso gladys %) 0.3 % 0.1-1.2 absolute neutrophil count (t est code = absolute neutrophil count) 7.49 K/uL 1.56-6.13 H Ig# (test code = Ig#) 0.11 K/uL 0.00-0.03 H lymph # (test code = lymph #) 2.13 K/uL 1.18-3.74 mono # (test code = mono #) 0.52 K/uL 0.24-0.86 eos # (test code = eos #) 0.06 K/uL 0.04-0.36 basophil # (test code = baso gladys #) 0.03 K/uL 0.01-0.08 NRBC% (test code = NRBC%) 0 /100 WBC 0-0.2 NRBC# (test code = NRBC#) 0 K/uL [facility] W Auto Differential panel - [id number] 08:53:00 * Test Item Value Reference Range Interpretation Comme nts white blood count (test code = white blood count) 8.4 K/uL 4.0-11.5 red blood count (test code = red blood count) 2.46 M/uL 3.80-5.20 L hemoglobin (test code = hemoglobin) 7.3 g/dL 10.5-15.7 L hematocrit (test code = hematocrit) 23.0 % 34.0-50.0 L mean corpuscular volume (aurelio t code = mean corpuscular volume) 93.5 fL 86.0-100.0 mean corpuscular hemoglobin (test code = mean corpuscular hemoglobin) 29.7 pg 26.2-33.4 mean corpuscular HGB conc (t est code = mean corpuscular HGB conc) 31.7 g/dL 30.0-34.0 red cell distribution width (test code = red cell distribution width) 14.9 % 12.0-15.5 platelet count (test code = platelet count) 106 K/uL 165-450 L mean platelet volume (test c ode = mean platelet volume) 12.4 fL 9.4-12.6 neutrophils % (test code = neutrophils %) 76.6 % 44.4-80.1 Ig% (test code = Ig%) 0.2 % 0.0-0.4 lymphocyte% (test code = lymphocyte%) 17.8 % 10.0-50.0 mono % (test code = mono %) 5.0 % 3.6-12.0 eos % (test code = eos %) 0.2 % 0.0-5.4 basophil % (test code = baso gladys %) 0.2 % 0.1-1.2 absolute neutrophil count (t est code = absolute neutrophil count) 6.42 K/uL 1.56-6.13 H Ig# (test code = Ig#) 0.02 K/uL 0.00-0.03 lymph # (test code = lymph #) 1.49 K/uL 1.18-3.74 mono # (test code = mono #) 0.42 K/uL 0.24-0.86 eos # (test code = eos #) 0.02 K/uL 0.04-0.36 L basophil # (test code = baso gladys #) 0.02 K/uL 0.01-0.08 NRBC% (test code = NRBC%) 0 /100 WBC 0-0.2 NRBC# (test code = NRBC#) 0 K/uL [facility] HospitalRPR2023-12-15 13:21:00* Test Item Value Reference Range Interpretation Comme nts RPR (test code = RPR) nonreactive nonreactive [facility] HospitalCBC W Auto Differential panel - [id number] 20:24:00 * Test Item Value Reference Range Interpretation Comme nts white blood count (test code = white blood count) 6.2 K/uL 4.0-11.5 red blood count (test code = red blood count) 3.18 M/uL 3.80-5.20 L hemoglobin (test code = hemoglobin) 9.3 g/dL 10.5-15.7 L hematocrit (test code = hematocrit) 28.7 % 34.0-50.0 L mean corpuscular volume (aurelio t code = mean corpuscular volume) 90.3 fL 86.0-100.0 mean corpuscular hemoglobin (test code = mean corpuscular hemoglobin) 29.2 pg 26.2-33.4 mean corpuscular HGB conc (t est code = mean corpuscular HGB conc) 32.4 g/dL 30.0-34.0 red cell distribution width (test code = red cell distribution width) 14.9 % 12.0-15.5 platelet count (test code = platelet count) 160 K/uL 165-450 L mean platelet volume (test c ode = mean platelet volume) 13.0 fL 9.4-12.6 H neutrophils % (test code = neutrophils %) 60.4 % 44.4-80.1 Ig% (test code = Ig%) 1.0 % 0.0-0.4 H lymphocyte% (test code = lymphocyte%) 28.5 % 10.0-50.0 mono % (test code = mono %) 9.3 % 3.6-12.0 eos % (test code = eos %) 0.5 % 0.0-5.4 basophil % (test code = baso gladys %) 0.3 % 0.1-1.2 absolute neutrophil count (t est code = absolute neutrophil count) 3.72 K/uL 1.56-6.13 Ig# (test code = Ig#) 0.06 K/uL 0.00-0.03 H lymph # (test code = lymph #) 1.75 K/uL 1.18-3.74 mono # (test code = mono #) 0.57 K/uL 0.24-0.86 eos # (test code = eos #) 0.03 K/uL 0.04-0.36 L basophil # (test code = baso gladys #) 0.02 K/uL 0.01-0.08 NRBC% (test code = NRBC%) 0 /100 WBC 0-0.2 NRBC# (test code = NRBC#) 0 K/uL [facility] Hospitalxm [id number] 19:48:00* Test Item Value Reference Range Interpretation Comme nts antibody screen (test code = antibody screen) negative blood type (test code = blood type) op [facility] [id number] 19:48:00* Test Item Value Reference Range Interpretation Comme nts antibody screen (test code = antibody screen) negative blood type (test code = blood type) op [facility] Hospitaltype and [id number] 19:48:00* Test Item Value Reference Range Interpretation Comme nts antibody screen (test code = antibody screen) negative blood type (test code = blood type) op [facility] Hospitaltransfuse [id number] 19:48:00* Test Item Value Reference Range Interpretation Comme nts blood product code (test cod e = blood product code) pca2 blood unit number (test code = blood unit number) [id number] blood dispense status (test code = blood dispense status) trs blood status date/time (test code = blood status date/time) [id number] blood coding sys (test code = blood coding sys) isbt blood type (test code = bloo d type) op expiration instant (test cod e = expiration instant) [id number] [facility] HospitalUrinalysis macro (dipstick) panel - [id number] 10:08:27* Test Item Value Reference Range Interpretation Comme nts Leukocytes (test code = Leukocytes) Negative Nitrite (test code = Nitrite) negative Urobilinogen (test code = Urobilinogen) .2 Protein (test code = Protein) Negative pH (test code = pH) 6.0 Blood (test code = Blood) Negative Specific Wittman (test code = Specific Wittman) 1.015 Ketone (test code = Ketone) Negative Bilirubin (test code = Bilirubin) Negative Glucose (test code = Glucose) Negative Appearance (test code = Appearance) Clear Color (test code = Color) Yellow [facility] HospitalSvrdzJguty-2-Ykdsierepccsn.placental [Presence] in Vaginal [id number] 20:53:00* Test Item Value Reference Range Interpretation Comme nts amnisure (test code = amnisure) negative neg [facility] Hospitalculture,urine pres id [id number] 20:51:00* Test Item Value Reference Range Interpretation Comme nts culture,urine (test code = culture,urine) specimen has been received in lab and IS in progress. [facility] [id number] 20:47:00* Test Item Value Reference Range Interpretation Comme nts color, urine (test code = co joce, urine) light yellow appearance, urine (test code = appearance, urine) clear clear urine glucose (test code = u rine glucose) negative negative bilirubin, urine (test code = bilirubin, urine) negative negative ketone, urine (test code = ketone, urine) negative negative specific gravity,urine (test code = specific gravity,urine) 1.019 1.003-1.030 blood urine (test code = blo od urine) negative negative pH,urine (test code = pH,urine) 6.000 5-9 protein urine (UA) (test cod e = protein urine (UA)) trace negative urobilinogen, urine (test co de = urobilinogen, urine) normal 0.2-1.0 nitrate, urine (test code = nitrate, urine) negative negative urine leukocyte esterase (te st code = urine leukocyte esterase) negative negative [facility] HospitalUrinalysis macro (dipstick) panel - [id number] 11:34:41* Test Item Value Reference Range Interpretation Comme nts Leukocytes (test code = Leukocytes) Small Nitrite (test code = Nitrite) negative Urobilinogen (test code = Urobilinogen) .2 Protein (test code = Protein) Negative pH (test code = pH) 7.0 Blood (test code = Blood) Negative Specific Wittman (test code = Specific Wittman) 1.020 Ketone (test code = Ketone) Negative Bilirubin (test code = Bilirubin) Negative Glucose (test code = Glucose) Negative Appearance (test code = Appearance) Clear Color (test code = Color) Yellow [facility] [Presence] in Vaginal fluid 2023-09-13 00:00:00* Test Item Value Reference Range Interpretation Comme nts group B streptococcus (gbs) by real-time PCR (test code = group B streptococcus (gbs) by real-time PCR) [facility] pres id [id number] 11:14:00* Test Item Value Reference Range Interpretation Comme nts culture,urine (test code = culture,urine) specimen has been received in lab and IS in progress. [facility] [id number] 11:12:00* Test Item Value Reference Range Interpretation Comme nts RBC, urine (test code = RBC, urine) 1-5 0-5 WBC, urine (test code = WBC, urine) >50 0-5 A epithelial cell (test code = epithelial cell) 11-14 0-5 bacteria, urine (test code = bacteria, urine) moderate (2+) none detect A casts,urine (test code = casts,urine) 20-29 none detect A urine culture added? (test c ode = urine culture added?) yes [facility] HospitalFdvpnJlqar-7-Ygraofmxolbmt.placental [Presence] in Vaginal [id number] 11:05:00* Test Item Value Reference Range Interpretation Comme nts amnisure (test code = amnisure) negative neg [facility] HospitalUrinalysis macro (dipstick) panel - [id number] 09:30:00* Test Item Value Reference Range Interpretation Comme nts Leukocytes (test code = Leukocytes) Small Nitrite (test code = Nitrite) negative Urobilinogen (test code = Urobilinogen) 1 Protein (test code = Protein) 30 pH (test code = pH) 7.0 Blood (test code = Blood) Moderate Specific Wittman (test code = Specific Wittman) 1.025 Ketone (test code = Ketone) Negative Bilirubin (test code = Bilirubin) Negative Glucose (test code = Glucose) Negative Appearance (test code = Appearance) Clear Color (test code = Color) Yellow [facility] [id number] 00:00:00* Test Item Value Reference Range Interpretation Comme nts chlamydia trachomatis by real-time PCR (reflex to azithromycin resistance by pyrosequencing) (test code = chlamydia trachomatis by real-time PCR (reflex to azithromycin resistance by pyrosequencing)) negative trichomonas vaginalis by real-time PCR (reflex to metronidazole resistance) (test code = trichomonas vaginalis by real-time PCR (reflex to metronidazole resistance)) 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 (test code = herpes subtype (hsv-1 hsv-2) by real-time PCR) positive (hsv-2) A group B streptococcus (gbs) by real-time PCR (test code = group B streptococcus (gbs) by real-time PCR) negative mycoplasma genitalium by real-time PCR (reflex to azithromycin and fluoroquinolone resistance) (test code = mycoplasma genitalium by real-time PCR (reflex to azithromycin and fluoroquinolone resistance)) negative gardnerella vaginalis by real-time PCR (test code = gardnerella vaginalis by real-time PCR) negative escherichia coli by real-time PCR (test code = escherichia coli by real-time PCR) negative atopobium vaginae by real-time PCR (test code = atopobium vaginae by real-time PCR) negative enterococcus faecalis by real-time PCR (test code = enterococcus faecalis by real-time PCR) negative bacterial vaginosis associated bacterium 2 (bvab2) by real-time PCR (test code = bacterial vaginosis associated bacterium 2 (bvab2) by real-time PCR) negative megasphaera species (type 1 and type 2) by real-time PCR (test code = megasphaera species (type 1 and type 2) by real-time PCR) negative (type1,type2) neisseria gonorrhoeae by real-time PCR (reflex to antibiotic resistance by molecular analysis) (test code = neisseria gonorrhoeae by real-time PCR (reflex to antibiotic resistance by molecular analysis)) negative lactobacillus (bv & av panel) by real time PCR (test code = lactobacillus (bv & av panel) by real time PCR) see comment staphylococcus aureus by real time PCR (test code = staphylococcus aureus by real time PCR) negative heriberto albicans by real-time PCR (test code = heriberto albicans by real-time PCR) negative heriberto tropicalis by real-time PCR (test code = heriberto tropicalis by real-time PCR) negative heriberto parapsilosis by real-time PCR (test code = heriberto parapsilosis by real-time PCR) negative heriberto glabrata by real-time PCR (test code = heriberto glabrata by real-time PCR) negative [facility] Hospitalflu/RSV/covid [id number] 14:04:00* Test Item Value Reference Range Interpretation Comme nts RSV xpress (test code = RSV xpress) RSV negative covid-19 inhouse (test code = covid-19 inhouse) flu A (test code = flu A) flu A negative flu B (test code = flu B) flu B negative [facility] HospitalEgjfhPhswy-6-Tdzukshvodpod.placental [Presence] in Vaginal [id number] 13:39:00* Test Item Value Reference Range Interpretation Comme nts amnisure (test code = amnisure) [facility] - [id number] 13:15:00 * Test Item Value Reference Range Interpretation Comme nts white blood count (test code = white blood count) 5.0 K/uL 4.0-11.5 red blood count (test code = red blood count) 2.60 M/uL 3.80-5.20 L hemoglobin (test code = hemoglobin) 7.8 g/dL 10.5-15.7 L hematocrit (test code = hematocrit) 23.9 % 34.0-50.0 L mean corpuscular volume (aurelio t code = mean corpuscular volume) 91.9 fL 86.0-100.0 mean corpuscular hemoglobin (test code = mean corpuscular hemoglobin) 30.0 pg 26.2-33.4 mean corpuscular HGB conc (t est code = mean corpuscular HGB conc) 32.6 g/dL 30.0-34.0 red cell distribution width (test code = red cell distribution width) 14.2 % 12.0-15.5 platelet count (test code = platelet count) 120 K/uL 165-450 L ipf# (test code = ipf#) 12.2 ipf% (test code = ipf%) 10.2 % 0-8 H mean platelet volume (test c ode = mean platelet volume) 11.4 fL 9.4-12.6 neutrophils % (test code = neutrophils %) 69.1 % 44.4-80.1 Ig% (test code = Ig%) 1.2 % 0.0-0.4 H lymphocyte% (test code = lymphocyte%) 23.6 % 10.0-50.0 mono % (test code = mono %) 5.9 % 3.6-12.0 eos % (test code = eos %) 0 % 0.0-5.4 basophil % (test code = baso gladys %) 0.2 % 0.1-1.2 absolute neutrophil count (t est code = absolute neutrophil count) 3.42 K/uL 1.56-6.13 Ig# (test code = Ig#) 0.06 K/uL 0.00-0.03 H lymph # (test code = lymph #) 1.17 K/uL 1.18-3.74 L mono # (test code = mono #) 0.29 K/uL 0.24-0.86 eos # (test code = eos #) 0.00 K/uL 0.04-0.36 L basophil # (test code = baso gladys #) 0.01 K/uL 0.01-0.08 NRBC% (test code = NRBC%) 0 /100 WBC 0-0.2 NRBC# (test code = NRBC#) 0 K/uL [facility] HospitalUrinalysis macro (dipstick) panel - [id number] 11:41:21* Test Item Value Reference Range Interpretation Comme nts Leukocytes (test code = Leukocytes) Trace Nitrite (test code = Nitrite) negative Urobilinogen (test code = Urobilinogen) .2 Protein (test code = Protein) Negative pH (test code = pH) 6.0 Blood (test code = Blood) Negative Specific Wittman (test code = Specific Wittman) 1.010 Ketone (test code = Ketone) Large (80) Bilirubin (test code = Bilirubin) Negative Glucose (test code = Glucose) Negative Appearance (test code = Appearance) Clear Color (test code = Color) Yellow [facility] Hospitalculture,urine pres id [id number] 09:18:00* Test Item Value Reference Range Interpretation Comme nts culture,urine (test code = culture,urine) no growth at 24 hrs. [facility] HospitalComprehensive metabolic 2000 panel - Serum or Plasma 2023-08-25 11:33:00* Test Item Value Reference Range Interpretation Comme nts glucose (test code = glucose) 79 mg/dL 74-106 blood urea nitrogen (test co de = blood urea nitrogen) 5 mg/dL 6-20 L osmolality calculated,serum (test code = osmolality calculated,serum) 257 mOsm/kg 280-300 L creatinine (test code = creatinine) 0.44 mg/dL 0.50-0.90 L glomerular filtration rate ( test code = glomerular filtration rate) > 60.00 BUN/creatinine ratio (test c ode = BUN/creatinine ratio) 11.4 12.0-20.0 L sodium level (test code = so dium level) 130 mmol/L 135-145 L potassium level (test code = potassium level) 3.4 mmol/L 3.5-5.2 L chloride level (test code = chloride level) 98 mmol/L 98-108 CO2 (test code = CO2) 17 mmol/L 21-32 L anion gap (test code = anion gap) 18.4 mEq/L 12.0-20.0 calcium level (test code = calcium level) 8.9 mg/dL 8.6-10.0 total protein (test code = t otal protein) 6.4 g/dL 6.6-8.7 L albumin (test code = albumin) 3.4 g/dL 3.5-5.2 L globulin (test code = globulin) 3.0 g/dL 1.5-4.5 A/G ratio (test code = A/G ratio) 1.1 >1.0 bilirubin,total (test code = bilirubin,total) 0.3 mg/dL 0.0-1.2 AST/SGOT (test code = AST/SGOT) 19 U/L 15-32 ALT/SGPT (test code = ALT/SGPT) 9 U/L 0-33 alkaline phosphatase, total (test code = alkaline phosphatase, total) 113 U/L 35-105 H [facility] W Auto Differential panel - [id number] 11:14:00 * Test Item Value Reference Range Interpretation Comme nts white blood count (test code = white blood count) 6.2 K/uL 4.0-11.5 red blood count (test code = red blood count) 2.69 M/uL 3.80-5.20 L hemoglobin (test code = hemoglobin) 8.2 g/dL 10.5-15.7 L hematocrit (test code = hematocrit) 24.5 % 34.0-50.0 L mean corpuscular volume (aurelio t code = mean corpuscular volume) 91.1 fL 86.0-100.0 mean corpuscular hemoglobin (test code = mean corpuscular hemoglobin) 30.5 pg 26.2-33.4 mean corpuscular HGB conc (t est code = mean corpuscular HGB conc) 33.5 g/dL 30.0-34.0 red cell distribution width (test code = red cell distribution width) 14.0 % 12.0-15.5 platelet count (test code = platelet count) 115 K/uL 165-450 L ipf# (test code = ipf#) 13.9 ipf% (test code = ipf%) 12.1 % 0-8 H mean platelet volume (test c ode = mean platelet volume) 12.0 fL 9.4-12.6 neutrophils % (test code = neutrophils %) 78.1 % 44.4-80.1 Ig% (test code = Ig%) 0.6 % 0.0-0.4 H lymphocyte% (test code = lymphocyte%) 14.4 % 10.0-50.0 mono % (test code = mono %) 6.7 % 3.6-12.0 eos % (test code = eos %) 0 % 0.0-5.4 basophil % (test code = baso gladys %) 0.2 % 0.1-1.2 absolute neutrophil count (t est code = absolute neutrophil count) 4.86 K/uL 1.56-6.13 Ig# (test code = Ig#) 0.04 K/uL 0.00-0.03 H lymph # (test code = lymph #) 0.90 K/uL 1.18-3.74 L mono # (test code = mono #) 0.42 K/uL 0.24-0.86 eos # (test code = eos #) 0.00 K/uL 0.04-0.36 L basophil # (test code = baso gladys #) 0.01 K/uL 0.01-0.08 NRBC% (test code = NRBC%) 0 /100 WBC 0-0.2 NRBC# (test code = NRBC#) 0 K/uL [facility] HospitalKlxcjUkjqc-1-Jydukmllasxsh.placental [Presence] in Vaginal [id number] 10:35:00* Test Item Value Reference Range Interpretation Comme nts amnisure (test code = amnisure) negative neg [facility] Vdsysgvrfbyytwp2715-09-42 10:30:00* Test Item Value Reference Range Interpretation Comme nts color, urine (test code = color, urine) yellow appearance, urine (test code = appearance, urine) SL cloudy clear A urine glucose (test code = urine glucose) negative negative bilirubin, urine (test code = bilirubin, urine) negative negative ketone, urine (test code = ketone, urine) 4+(large) negative A specific gravity,urine (test code = specific gravity,urine) 1.022 1.003-1.030 blood urine (test code = blo od urine) negative negative pH,urine (test code = pH,urine) 6.000 5-9 protein urine (UA) (test cod e = protein urine (UA)) 1+ (30 mg/dL) negative A urobilinogen, urine (test co de = urobilinogen, urine) normal 0.2-1.0 nitrate, urine (test code = nitrate, urine) negative negative urine leukocyte esterase (te st code = urine leukocyte esterase) 1+ negative A RBC, urine (test code = RBC, urine) <1 0-5 WBC, urine (test code = WBC, urine) 11-14 0-5 A epithelial cell (test code = epithelial cell) 11-14 0-5 bacteria, urine (test code = bacteria, urine) small(1+) none detect casts,urine (test code = casts,urine) 11-14 none detect A urine culture added? (test c ode = urine culture added?) [facility] Group[facility],urine pres id [id number] 09:07:00* Test Item Value Reference Range Interpretation Comme nts culture,urine (test code = culture,urine) no growth after 1 day [facility] [id number] 22:08:00* Test Item Value Reference Range Interpretation Comme nts color, urine (test code = color, urine) light yellow appearance, urine (test code = appearance, urine) clear clear urine glucose (test code = urine glucose) negative negative bilirubin, urine (test code = bilirubin, urine) negative negative ketone, urine (test code = ketone, urine) 1+(small) negative A specific gravity,urine (test code = specific gravity,urine) 1.016 1.003-1.030 blood urine (test code = blo od urine) negative negative pH,urine (test code = pH,urine) 7.000 5-9 protein urine (UA) (test cod e = protein urine (UA)) trace negative urobilinogen, urine (test co de = urobilinogen, urine) normal 0.2-1.0 nitrate, urine (test code = nitrate, urine) negative negative urine leukocyte esterase (te st code = urine leukocyte esterase) negative negative RBC, urine (test code = RBC, urine) <1 0-5 WBC, urine (test code = WBC, urine) 6-10 0-5 A epithelial cell (test code = epithelial cell) 1-5 0-5 bacteria, urine (test code = bacteria, urine) small(1+) none detect casts,urine (test code = casts,urine) none detected none detect urine culture added? (test c ode = urine culture added?) yes [facility] Hospitalvaricella zoster Ab,[id number] 11:15:00* Test Item Value Reference Range Interpretation Comme nts varicella zoster Ab,IgG (test code = varicella zoster Ab,IgG) 520 index See_Comment [Automated messa ge] The system which generated this result transmitted reference range: immune >165. The reference range was not used to interpret this result as normal/abnormal. [facility] Hospitalrubella [id number] 14:38:00* Test Item Value Reference Range Interpretation Comme nts rubella IgG (test code = rub charo IgG) 51.43 IU/mL [facility] Hospitalglucose shahrzad 1 HR fasting [id number] 12:02:00Glucose Shahrzad 1 hr [facility] L 2023-07-29 11:48:00* Test Item Value Reference Range Interpretation Comme nts thyroid stimulating hormone L (test code = thyroid stimulating hormone L) 2.09 uIU/mL 0.36-3.74 [facility] HospitalThyroxine (T4) free [Mass/volume] in Serum or Plasma 2023-07-29 11:48:00* Test Item Value Reference Range Interpretation Comme nts free T4 (test code = free T4) 0.79 NG/dL 0.93-1.7 L [facility] HospitalHIV screen (in-house)2023-07-29 11:45:00* Test Item Value Reference Range Interpretation Comme nts HIV P24 Ag (test code = HIV P24 Ag) non-reactive nonreactive HIV-1/2 Ab (test code = HIV- 1/2 Ab) non-reactive nonreactive [facility] HospitalRPR2023-10-06 11:41:00* Test Item Value Reference Range Interpretation Comme nts RPR (test code = RPR) nonreactive nonreactive [facility]12 panel drug [id number] 11:27:00* Test Item Value Reference Range Interpretation Comme nts amphetamines screen urine (t est code = amphetamines screen urine) negative negative barbiturates, urine quant. ( test code = barbiturates, urine quant.) negative negative benzodiazepines screen urine (test code = benzodiazepines screen urine) negative negative cannabinoids (test code = cannabinoids) negative negative cocaine (test code = cocaine) negative negative opiates (test code = opiates) negative negative hydrocodone (test code = hydrocodone) negative negative fentanyl (test code = fentanyl) negative negative phencyclidine (test code = phencyclidine) negative negative methadone (test code = methadone) negative negative propoxyphene (test code = propoxyphene) negative negative oxycodone (test code = oxycodone) negative negative drug screen note (test code = drug screen note) . [facility] HospitalCBC W Auto Differential panel - [id number] 11:01:00 * Test Item Value Reference Range Interpretation Comme nts white blood count (test code = white blood count) 7.4 K/uL 4.0-11.5 red blood count (test code = red blood count) 2.98 M/uL 3.80-5.20 L hemoglobin (test code = hemoglobin) 9.1 g/dL 10.5-15.7 L hematocrit (test code = hematocrit) 28.2 % 34.0-50.0 L mean corpuscular volume (aurelio t code = mean corpuscular volume) 94.6 fL 86.0-100.0 mean corpuscular hemoglobin (test code = mean corpuscular hemoglobin) 30.5 pg 26.2-33.4 mean corpuscular HGB conc (t est code = mean corpuscular HGB conc) 32.3 g/dL 30.0-34.0 red cell distribution width (test code = red cell distribution width) 13.7 % 12.0-15.5 platelet count (test code = platelet count) 147 K/uL 165-450 L mean platelet volume (test c ode = mean platelet volume) 12.2 fL 9.4-12.6 neutrophils % (test code = neutrophils %) 69.3 % 44.4-80.1 Ig% (test code = Ig%) 0.3 % 0.0-0.4 lymphocyte% (test code = lymphocyte%) 23.8 % 10.0-50.0 mono % (test code = mono %) 5.6 % 3.6-12.0 eos % (test code = eos %) 0.7 % 0.0-5.4 basophil % (test code = baso gladys %) 0.3 % 0.1-1.2 absolute neutrophil count (t est code = absolute neutrophil count) 5.10 K/uL 1.56-6.13 Ig# (test code = Ig#) 0.02 K/uL 0.00-0.03 lymph # (test code = lymph #) 1.75 K/uL 1.18-3.74 mono # (test code = mono #) 0.41 K/uL 0.24-0.86 eos # (test code = eos #) 0.05 K/uL 0.04-0.36 basophil # (test code = baso gladys #) 0.02 K/uL 0.01-0.08 NRBC% (test code = NRBC%) 0 /100 WBC 0-0.2 NRBC# (test code = NRBC#) 0 K/uL [facility] HospitalUrinalysis macro (dipstick) panel - [id number] 10:22:00* Test Item Value Reference Range Interpretation Comme nts Leukocytes (test code = Leukocytes) Negative Nitrite (test code = Nitrite) negative Urobilinogen (test code = Urobilinogen) .2 Protein (test code = Protein) Negative pH (test code = pH) 6.0 Blood (test code = Blood) Negative Specific Wittman (test code = Specific Wittman) 1.025 Ketone (test code = Ketone) Negative Bilirubin (test code = Bilirubin) Negative Glucose (test code = Glucose) Negative Appearance (test code = Appearance) Clear Color (test code = Color) Yellow [facility] HospitalIndirect antiglobulin test.unspecified reagent [Presence] in Serum or [id number] 09:50:00* Test Item Value Reference Range Interpretation Comme nts ind nona (test code = ind nona) negative [facility] [id number] 10:00:00* Test Item Value Reference Range Interpretation Comme nts color, urine (test code = co joce, urine) light yellow appearance, urine (test code = appearance, urine) clear clear urine glucose (test code = u rine glucose) negative negative bilirubin, urine (test code = bilirubin, urine) negative negative ketone, urine (test code = ketone, urine) negative negative specific gravity,urine (test code = specific gravity,urine) 1.023 1.003-1.030 blood urine (test code = blo od urine) negative negative pH,urine (test code = pH,urine) 6.000 5-9 protein urine (UA) (test cod e = protein urine (UA)) negative negative urobilinogen, urine (test co de = urobilinogen, urine) normal 0.2-1.0 nitrate, urine (test code = nitrate, urine) negative negative urine leukocyte esterase (te st code = urine leukocyte esterase) negative negative RBC, urine (test code = RBC, urine) 1-5 0-5 WBC, urine (test code = WBC, urine) 1-5 0-5 epithelial cell (test code = epithelial cell) 6-10 0-5 bacteria, urine (test code = bacteria, urine) small(1+) none detect casts,urine (test code = casts,urine) 2-5 none detect urine culture added? (test c ode = urine culture added?) no [facility] HospitalUrinalysis macro (dipstick) panel - [id number] 10:55:41* Test Item Value Reference Range Interpretation Comme nts Leukocytes (test code = Leukocytes) Negative Nitrite (test code = Nitrite) negative Urobilinogen (test code = Urobilinogen) .2 Protein (test code = Protein) Trace pH (test code = pH) 6.5 Blood (test code = Blood) Negative Specific Wittman (test code = Specific Wittman) 1.025 Ketone (test code = Ketone) Negative Bilirubin (test code = Bilirubin) Negative Glucose (test code = Glucose) Negative Appearance (test code = Appearance) Clear Color (test code = Color) Yellow [facility] HospitalAFP,[id number] 16:11:00* Test Item Value Reference Range Interpretation Comme nts .AFP,osb results (test code = .AFP,osb results) report See_Comment [Automated message] The system which generated this result transmitted reference range: .. The reference range was not used to interpret this result as normal/abnormal. .AFP, test results (test code = .AFP, test results) *screen negative* See_Comment [Automated message] The system which generated this result transmitted reference range: .. The reference range was not used to interpret this result as normal/abnormal. gestational age on emil date (test code = gestational age on emil date) 17.0 weeks See_Comment [Automated message] The system which generated this result transmitted reference range: .. The reference range was not used to interpret this result as normal/abnormal. gestational age based on (test code = gestational age based on) LMP See_Comment [Automated message] The system which generated this result transmitted reference range: .. The reference range was not used to interpret this result as normal/abnormal. maternal age at charu (test code = maternal [age] at charu) 23.0 yr See_Comment [Automated message] The system which generated this result transmitted reference range: .. The reference range was not used to interpret this result as normal/abnormal. race (test code = race) See_Comment [Automated message] The system which generated this result transmitted reference range: .. The reference range was not used to interpret this result as normal/abnormal. maternal weight (test code = maternal weight) 147 [lb av] See_Comment [Automated message] The system which generated this result transmitted reference range: .. The reference range was not used to interpret this result as normal/abnormal. ins dep diabetes (test code = ins dep diabetes) no See_Comment [Automated message] The system which generated this result transmitted reference range: .. The reference range was not used to interpret this result as normal/abnormal. multiple gestation (test code = multiple gestation) See_Comment [Automated message] The system which generated this result transmitted reference range: .. The reference range was not used to interpret this result as normal/abnormal. .AFP value (test code = .AFP value) 54.3 NG/mL See_Comment [Automated message] The system which generated this result transmitted reference range: .. The reference range was not used to interpret this result as normal/abnormal. .AFP MOM (test code = .AFP MOM) 1.36 See_Comment [Automated message] The system which generated this result transmitted reference range: .. The reference range was not used to interpret this result as normal/abnormal. OSBR risk 1 in (test code = OSBR risk 1 in) 4034 See_Comment [Automated message] The system which generated this result transmitted reference range: .. The reference range was not used to interpret this result as normal/abnormal. .AFP interp (test code = .AFP interp) See_Comment [Automated message] The system which generated this result transmitted reference range: .. The reference range was not used to interpret this result as normal/abnormal. .AFP comment (test code = .AFP comment) See_Comment [Automated message] The system which generated this result transmitted reference range: .. The reference range was not used to interpret this result as normal/abnormal. [facility] HospitalUrinalysis macro (dipstick) panel - [id number] 11:38:59* Test Item Value Reference Range Interpretation Comme nts Leukocytes (test code = Leukocytes) Negative Nitrite (test code = Nitrite) negative Urobilinogen (test code = Urobilinogen) .2 Protein (test code = Protein) Negative pH (test code = pH) 7.0 Blood (test code = Blood) Negative Specific Wittman (test code = Specific Wittman) 1.025 Ketone (test code = Ketone) Negative Bilirubin (test code = Bilirubin) Negative Glucose (test code = Glucose) Negative Appearance (test code = Appearance) Clear Color (test code = Color) Yellow [facility] Hospitalculture,urine pres id [id number] 11:17:00* Test Item Value Reference Range Interpretation Comme nts culture,urine (test code = culture,urine) specimen has been received in lab and IS in progress. [facility] HospitalComprehensive metabolic 2000 panel - Serum or Plasma 2023-05-11 11:15:00* Test Item Value Reference Range Interpretation Comme nts glucose (test code = glucose) 87 mg/dL 74-106 blood urea nitrogen (test co de = blood urea nitrogen) 7 mg/dL 6-20 osmolality calculated,serum (test code = osmolality calculated,serum) 269 mOsm/kg 280-300 L creatinine (test code = creatinine) 0.45 mg/dL 0.50-0.90 L glomerular filtration rate ( test code = glomerular filtration rate) > 60.00 BUN/creatinine ratio (test c ode = BUN/creatinine ratio) 15.6 12.0-20.0 sodium level (test code = so dium level) 136 mmol/L 135-145 potassium level (test code = potassium level) 4.0 mmol/L 3.5-5.2 chloride level (test code = chloride level) 103 mmol/L 98-108 CO2 (test code = CO2) 25 mmol/L 21-32 anion gap (test code = anion gap) 12.0 mEq/L 12.0-20.0 calcium level (test code = calcium level) 9.2 mg/dL 8.6-10.0 total protein (test code = t otal protein) 6.8 g/dL 6.6-8.7 albumin (test code = albumin) 4.0 g/dL 3.5-5.2 globulin (test code = globulin) 2.8 g/dL 1.5-4.5 A/G ratio (test code = A/G ratio) 1.4 >1.0 bilirubin,total (test code = bilirubin,total) < 0.2 0.0-1.2 AST/SGOT (test code = AST/SGOT) 12 U/L 15-32 L ALT/SGPT (test code = ALT/SGPT) 7 U/L 0-33 alkaline phosphatase, total (test code = alkaline phosphatase, total) 67 U/L 35-105 [facility] [id number] 11:02:00* Test Item Value Reference Range Interpretation Comme nts RBC, urine (test code = RBC, urine) 1-5 0-5 WBC, urine (test code = WBC, urine) 15-19 0-5 A epithelial cell (test code = epithelial cell) 6-10 0-5 bacteria, urine (test code = bacteria, urine) tntc (4+) none detect A casts,urine (test code = casts,urine) 6-10 none detect A urine culture added? (test c ode = urine culture added?) yes amorphous sediment, urine (t est code = amorphous sediment, urine) moderate none seen [facility] HospitalCB W Auto Differential panel - [id number] 10:52:00 * Test Item Value Reference Range Interpretation Comme nts white blood count (test code = white blood count) 7.5 K/uL 4.0-11.5 red blood count (test code = red blood count) 3.15 M/uL 3.80-5.20 L hemoglobin (test code = hemoglobin) 9.7 g/dL 10.5-15.7 L hematocrit (test code = hematocrit) 28.8 % 34.0-50.0 L mean corpuscular volume (aurelio t code = mean corpuscular volume) 91.4 fL 86.0-100.0 mean corpuscular hemoglobin (test code = mean corpuscular hemoglobin) 30.8 pg 26.2-33.4 mean corpuscular HGB conc (t est code = mean corpuscular HGB conc) 33.7 g/dL 30.0-34.0 red cell distribution width (test code = red cell distribution width) 13.4 % 12.0-15.5 platelet count (test code = platelet count) 177 K/uL 165-450 mean platelet volume (test c ode = mean platelet volume) 11.9 fL 9.4-12.6 neutrophils % (test code = neutrophils %) 65.4 % 44.4-80.1 Ig% (test code = Ig%) 0.3 % 0.0-0.4 lymphocyte% (test code = lymphocyte%) 27.4 % 10.0-50.0 mono % (test code = mono %) 6.0 % 3.6-12.0 eos % (test code = eos %) 0.5 % 0.0-5.4 basophil % (test code = baso gladys %) 0.4 % 0.1-1.2 absolute neutrophil count (t est code = absolute neutrophil count) 4.88 K/uL 1.56-6.13 Ig# (test code = Ig#) 0.02 K/uL 0.00-0.03 lymph # (test code = lymph #) 2.05 K/uL 1.18-3.74 mono # (test code = mono #) 0.45 K/uL 0.24-0.86 eos # (test code = eos #) 0.04 K/uL 0.04-0.36 basophil # (test code = baso gladys #) 0.03 K/uL 0.01-0.08 NRBC% (test code = NRBC%) 0 /100 WBC 0-0.2 NRBC# (test code = NRBC#) 0 K/uL [facility] HospitalUrinalysis macro (dipstick) panel - [id number] 15:08:02* Test Item Value Reference Range Interpretation Comme nts Leukocytes (test code = Leukocytes) Negative Nitrite (test code = Nitrite) negative Urobilinogen (test code = Urobilinogen) .2 Protein (test code = Protein) Negative pH (test code = pH) 7.0 Blood (test code = Blood) Negative Specific Wittman (test code = Specific Wittman) 1.025 Ketone (test code = Ketone) Negative Bilirubin (test code = Bilirubin) Negative Glucose (test code = Glucose) Negative Appearance (test code = Appearance) Clear Color (test code = Color) Yellow [facility] HospitalHCG [id number] 21:12:00* Test Item Value Reference Range Interpretation Comme nts HCG quantitative (test code = HCG quantitative) 57770.0 mIU/mL 0-5 H [facility] HospitalComprehensive metabolic 2000 panel - Serum or Plasma 2023-05-02 20:41:00* Test Item Value Reference Range Interpretation Comme nts glucose (test code = glucose) 103 mg/dL 74-106 blood urea nitrogen (test co de = blood urea nitrogen) 6 mg/dL 6-20 osmolality calculated,serum (test code = osmolality calculated,serum) 274 mOsm/kg 280-300 L creatinine (test code = creatinine) 0.51 mg/dL 0.50-0.90 glomerular filtration rate ( test code = glomerular filtration rate) > 60.00 BUN/creatinine ratio (test c ode = BUN/creatinine ratio) 11.8 12.0-20.0 L sodium level (test code = so dium level) 138 mmol/L 135-145 potassium level (test code = potassium level) 3.3 mmol/L 3.5-5.2 L chloride level (test code = chloride level) 104 mmol/L 98-108 CO2 (test code = CO2) 23 mmol/L 21-32 anion gap (test code = anion gap) 14.3 mEq/L 12.0-20.0 calcium level (test code = calcium level) 9.5 mg/dL 8.6-10.0 total protein (test code = t otal protein) 7.0 g/dL 6.6-8.7 albumin (test code = albumin) 4.3 g/dL 3.5-5.2 globulin (test code = globulin) 2.7 g/dL 1.5-4.5 A/G ratio (test code = A/G ratio) 1.6 >1.0 bilirubin,total (test code = bilirubin,total) < 0.2 0.0-1.2 AST/SGOT (test code = AST/SGOT) 15 U/L 15-32 ALT/SGPT (test code = ALT/SGPT) 11 U/L 0-33 alkaline phosphatase, total (test code = alkaline phosphatase, total) 77 U/L 35-105 [facility] HospitalCB W Auto Differential panel - [id number] 20:36:00 * Test Item Value Reference Range Interpretation Comme nts white blood count (test code = white blood count) 8.8 K/uL 4.0-11.5 red blood count (test code = red blood count) 3.41 M/uL 3.80-5.20 L hemoglobin (test code = hemoglobin) 10.3 g/dL 10.5-15.7 L hematocrit (test code = hematocrit) 30.9 % 34.0-50.0 L mean corpuscular volume (aurelio t code = mean corpuscular volume) 90.6 fL 86.0-100.0 mean corpuscular hemoglobin (test code = mean corpuscular hemoglobin) 30.2 pg 26.2-33.4 mean corpuscular HGB conc (t est code = mean corpuscular HGB conc) 33.3 g/dL 30.0-34.0 red cell distribution width (test code = red cell distribution width) 13.4 % 12.0-15.5 platelet count (test code = platelet count) 183 K/uL 165-450 mean platelet volume (test c ode = mean platelet volume) 12.2 fL 9.4-12.6 neutrophils % (test code = neutrophils %) 72.2 % 44.4-80.1 Ig% (test code = Ig%) 1.0 % 0.0-0.4 H lymphocyte% (test code = lymphocyte%) 19.7 % 10.0-50.0 mono % (test code = mono %) 6.3 % 3.6-12.0 eos % (test code = eos %) 0.6 % 0.0-5.4 basophil % (test code = baso gladys %) 0.2 % 0.1-1.2 absolute neutrophil count (t est code = absolute neutrophil count) 6.32 K/uL 1.56-6.13 H Ig# (test code = Ig#) 0.09 K/uL 0.00-0.03 H lymph # (test code = lymph #) 1.72 K/uL 1.18-3.74 mono # (test code = mono #) 0.55 K/uL 0.24-0.86 eos # (test code = eos #) 0.05 K/uL 0.04-0.36 basophil # (test code = baso gladys #) 0.02 K/uL 0.01-0.08 NRBC% (test code = NRBC%) 0 /100 WBC 0-0.2 NRBC# (test code = NRBC#) 0 K/uL [facility] [id number] 20:19:00* Test Item Value Reference Range Interpretation Comme nts color, urine (test code = color, urine) light yellow appearance, urine (test code = appearance, urine) clear clear urine glucose (test code = urine glucose) 2+ (200 mg/dL) negative bilirubin, urine (test code = bilirubin, urine) negative negative ketone, urine (test code = ketone, urine) 1+(small) negative A specific gravity,urine (test code = specific gravity,urine) 1.028 1.003-1.030 blood urine (test code = blo od urine) negative negative pH,urine (test code = pH,urine) 5.500 5-9 protein urine (UA) (test cod e = protein urine (UA)) trace negative urobilinogen, urine (test co de = urobilinogen, urine) normal 0.2-1.0 nitrate, urine (test code = nitrate, urine) negative negative urine leukocyte esterase (te st code = urine leukocyte esterase) negative negative RBC, urine (test code = RBC, urine) 1-5 0-5 WBC, urine (test code = WBC, urine) 1-5 0-5 epithelial cell (test code = epithelial cell) 1-5 0-5 bacteria, urine (test code = bacteria, urine) none detected none detect casts,urine (test code = casts,urine) 2-5 none detect urine culture added? (test code = urine culture added?) no [facility] HospitalUrinalysis macro (dipstick) panel - [id number] 11:15:39* Test Item Value Reference Range Interpretation Comme nts Leukocytes (test code = Leukocytes) Negative Nitrite (test code = Nitrite) negative Urobilinogen (test code = Urobilinogen) .2 Protein (test code = Protein) Negative pH (test code = pH) 5.5 Blood (test code = Blood) Negative Specific Wittman (test code = Specific Wittman) 1.030 Ketone (test code = Ketone) Negative Bilirubin (test code = Bilirubin) Negative Glucose (test code = Glucose) Negative Appearance (test code = Appearance) Clear Color (test code = Color) Yellow [facility]/[id number] 01:50:00* Test Item Value Reference Range Interpretation Comme nts CT (test code = CT) CT not detected NG (test code = NG) NG not detected [facility] Hospitaltrichomonas [id number] 00:50:00* Test Item Value Reference Range Interpretation Comme nts trichomonas vaginalis (test code = trichomonas vaginalis) TV not detected [facility] HospitalHCG [id number] 00:41:00* Test Item Value Reference Range Interpretation Comme nts HCG quantitative (test code = HCG quantitative) 84267.0 mIU/mL 0-5 H [facility] Hospitalkoh, tissue [id number] 00:35:00* Test Item Value Reference Range Interpretation Comme nts yasmine, tissue only (test code = yasmine, tissue only) no fungal elements [facility] HospitalMicroscopic observation [Identifier] in Specimen by Wet [id number] 00:34:00[facility] - Serum or [id number] 00:04:00* Test Item Value Reference Range Interpretation Comme nts glucose (test code = glucose) 97 mg/dL 74-106 blood urea nitrogen (test co de = blood urea nitrogen) 10 mg/dL 6-20 osmolality calculated,serum (test code = osmolality calculated,serum) 271 mOsm/kg 280-300 L creatinine (test code = creatinine) 0.47 mg/dL 0.50-0.90 L glomerular filtration rate ( test code = glomerular filtration rate) > 60.00 BUN/creatinine ratio (test c ode = BUN/creatinine ratio) 21.3 12.0-20.0 H sodium level (test code = so dium level) 136 mmol/L 135-145 potassium level (test code = potassium level) 3.8 mmol/L 3.5-5.2 chloride level (test code = chloride level) 101 mmol/L 98-108 CO2 (test code = CO2) 22 mmol/L 21-32 anion gap (test code = anion gap) 16.8 mEq/L 12.0-20.0 calcium level (test code = calcium level) 9.7 mg/dL 8.6-10.0 total protein (test code = t otal protein) 7.0 g/dL 6.6-8.7 albumin (test code = albumin) 4.4 g/dL 3.5-5.2 globulin (test code = globulin) 2.6 g/dL 1.5-4.5 A/G ratio (test code = A/G ratio) 1.7 >1.0 bilirubin,total (test code = bilirubin,total) < 0.2 0.0-1.2 AST/SGOT (test code = AST/SGOT) 15 U/L 15-32 ALT/SGPT (test code = ALT/SGPT) 10 U/L 0-33 alkaline phosphatase, total (test code = alkaline phosphatase, total) 77 U/L 35-105 [facility] [id number] 23:37:00* Test Item Value Reference Range Interpretation Comme nts color, urine (test code = co joce, urine) light yellow appearance, urine (test code = appearance, urine) clear clear urine glucose (test code = u rine glucose) negative negative bilirubin, urine (test code = bilirubin, urine) negative negative ketone, urine (test code = ketone, urine) negative negative specific gravity,urine (test code = specific gravity,urine) 1.022 1.003-1.030 blood urine (test code = blo od urine) negative negative pH,urine (test code = pH,urine) 6.500 5-9 protein urine (UA) (test cod e = protein urine (UA)) negative negative urobilinogen, urine (test co de = urobilinogen, urine) normal 0.2-1.0 nitrate, urine (test code = nitrate, urine) negative negative urine leukocyte esterase (te st code = urine leukocyte esterase) negative negative [facility] W Auto Differential panel - [id number] 23:36:00 * Test Item Value Reference Range Interpretation Comme nts white blood count (test code = white blood count) 9.3 K/uL 4.0-11.5 red blood count (test code = red blood count) 3.55 M/uL 3.80-5.20 L hemoglobin (test code = hemoglobin) 10.6 g/dL 10.5-15.7 hematocrit (test code = hematocrit) 32.3 % 34.0-50.0 L mean corpuscular volume (aurelio t code = mean corpuscular volume) 91.0 fL 86.0-100.0 mean corpuscular hemoglobin (test code = mean corpuscular hemoglobin) 29.9 pg 26.2-33.4 mean corpuscular HGB conc (t est code = mean corpuscular HGB conc) 32.8 g/dL 30.0-34.0 red cell distribution width (test code = red cell distribution width) 13.2 % 12.0-15.5 platelet count (test code = platelet count) 195 K/uL 165-450 mean platelet volume (test c ode = mean platelet volume) 12.2 fL 9.4-12.6 neutrophils % (test code = neutrophils %) 61.6 % 44.4-80.1 Ig% (test code = Ig%) 0.2 % 0.0-0.4 lymphocyte% (test code = lymphocyte%) 30.6 % 10.0-50.0 mono % (test code = mono %) 6.8 % 3.6-12.0 eos % (test code = eos %) 0.5 % 0.0-5.4 basophil % (test code = baso gladys %) 0.3 % 0.1-1.2 absolute neutrophil count (t est code = absolute neutrophil count) 5.70 K/uL 1.56-6.13 Ig# (test code = Ig#) 0.02 K/uL 0.00-0.03 lymph # (test code = lymph #) 2.83 K/uL 1.18-3.74 mono # (test code = mono #) 0.63 K/uL 0.24-0.86 eos # (test code = eos #) 0.05 K/uL 0.04-0.36 basophil # (test code = baso gladys #) 0.03 K/uL 0.01-0.08 NRBC% (test code = NRBC%) 0 /100 WBC 0-0.2 NRBC# (test code = NRBC#) 0 K/uL [facility] pres id [id number] 23:35:00* Test Item Value Reference Range Interpretation Comme nts culture,urine (test code = culture,urine) specimen has been received in lab and IS in progress. [facility]2023-02-24 15:19:00* Test Item Value Reference Range Interpretation Comme nts HIV P24 Ag (test code = HIV P24 Ag) non-reactive nonreactive HIV-1/2 Ab (test code = HIV- 1/2 Ab) non-reactive nonreactive [facility] Hospitalchl/[id number] 15:01:00* Test Item Value Reference Range Interpretation Comme nts NG (test code = NG) NG not detected [facility] HospitalRPR2023-05-[facility] 14:42:00* Test Item Value Reference Range Interpretation Comme nts RPR (test code = RPR) nonreactive nonreactive [facility] HospitalComprehensive [facility] 2000 panel - Serum or Plasma 2023-02-24 12:26:00* Test Item Value Reference Range Interpretation Comme nts glucose (test code = glucose) 91 mg/dL 74-106 blood urea nitrogen (test co de = blood urea nitrogen) 9 mg/dL 6-20 osmolality calculated,serum (test code = osmolality calculated,serum) 270 mOsm/kg 280-300 L creatinine (test code = creatinine) 0.58 mg/dL 0.50-0.90 glomerular filtration rate ( test code = glomerular filtration rate) > 60.00 BUN/creatinine ratio (test c ode = BUN/creatinine ratio) 15.5 12.0-20.0 sodium level (test code = so dium level) 136 mmol/L 135-145 potassium level (test code = potassium level) 4.1 mmol/L 3.5-5.2 chloride level (test code = chloride level) 103 mmol/L 98-108 CO2 (test code = CO2) 20 mmol/L 21-32 L anion gap (test code = anion gap) 17.1 mEq/L 12.0-20.0 calcium level (test code = calcium level) 9.9 mg/dL 8.6-10.0 total protein (test code = t otal protein) 7.6 g/dL 6.6-8.7 albumin (test code = albumin) 4.6 g/dL 3.5-5.2 globulin (test code = globulin) 3.0 g/dL 1.5-4.5 A/G ratio (test code = A/G ratio) 1.5 >1.0 bilirubin,total (test code = bilirubin,total) 0.2 mg/dL 0.0-1.2 AST/SGOT (test code = AST/SGOT) 17 U/L 15-32 ALT/SGPT (test code = ALT/SGPT) 12 U/L 0-33 alkaline phosphatase, total (test code = alkaline phosphatase, total) 81 U/L 35-105 [facility] HospitalAmylase [Enzymatic activity/volume] in Serum or Plasma 2023-02-24 12:26:00* Test Item Value Reference Range Interpretation Comme [facility] amylase level (test code = a mylase level) 45 U/L 28-100 [facility] Hospitallipase2023-05-04 12:26:00* Test Item Value Reference Range Interpretation Comme [facility] lipase (test code = lipase) 28 U/L 13-60 [facility] W Auto Differential panel - [id number] 11:43:00 * Test Item Value Reference Range Interpretation Comme [facility] white blood count (test code = white blood count) 9.1 K/uL 4.0-11.5 red blood count (test code = red blood count) 3.93 M/uL 3.80-5.20 hemoglobin (test code = hemoglobin) 11.8 g/dL 10.5-15.7 hematocrit (test code = hematocrit) 35.5 % 34.0-50.0 mean corpuscular volume (aurelio t code = mean corpuscular volume) 90.3 fL 86.0-100.0 mean corpuscular hemoglobin (test code = mean corpuscular hemoglobin) 30.0 pg 26.2-33.4 mean corpuscular HGB conc (t est code = mean corpuscular HGB conc) 33.2 g/dL 30.0-34.0 red cell distribution width (test code = red cell distribution width) 12.8 % 12.0-15.5 platelet count (test code = platelet count) 224 K/uL 165-450 mean platelet volume (test c ode = mean platelet volume) 11.8 fL 9.4-12.6 neutrophils % (test code = neutrophils %) 66.6 % 44.4-80.1 Ig% (test code = Ig%) 0.3 % 0.0-0.4 lymphocyte% (test code = lymphocyte%) 26.9 % 10.0-50.0 mono % (test code = mono %) 5.3 % 3.6-12.0 eos % (test code = eos %) 0.6 % 0.0-5.4 basophil % (test code = baso gladys %) 0.3 % 0.1-1.2 absolute neutrophil count (t est code = absolute neutrophil count) 6.05 K/uL 1.56-6.13 Ig# (test code = Ig#) 0.03 K/uL 0.00-0.03 lymph # (test code = lymph #) 2.44 K/uL 1.18-3.74 mono # (test code = mono #) 0.48 K/uL 0.24-0.86 eos # (test code = eos #) 0.05 K/uL 0.04-0.36 basophil # (test code = baso gladys #) 0.03 K/uL 0.01-0.08 NRBC% (test code = NRBC%) 0 /100 WBC 0-0.2 NRBC# (test code = NRBC#) 0 K/uL [facility] HospitalUrinalysis macro (dipstick) panel - [id number] 10:14:34* Test Item Value Reference Range Interpretation Comme nts Leukocytes (test code = Leukocytes) Negative Nitrite (test code = Nitrite) negative Urobilinogen (test code = Urobilinogen) .2 Protein (test code = Protein) Negative pH (test code = pH) 7.0 Blood (test code = Blood) Negative Specific Wittman (test code = Specific Wittman) 1.020 Ketone (test code = Ketone) Negative Bilirubin (test code = Bilirubin) Negative Glucose (test code = Glucose) Negative Appearance (test code = Appearance) Clear Color (test code = Color) Yellow [facility] HospitalUrinalysis macro (dipstick) panel - [id number] 15:34:45* Test Item Value Reference Range Interpretation Comme nts Leukocytes (test code = Leukocytes) Trace Nitrite (test code = Nitrite) negative Urobilinogen (test code = Urobilinogen) .2 Protein (test code = Protein) Negative pH (test code = pH) 5.5 Blood (test code = Blood) Negative Specific Wittman (test code = Specific Wittman) 1.025 Ketone (test code = Ketone) Negative Bilirubin (test code = Bilirubin) Negative Glucose (test code = Glucose) Negative Appearance (test code = Appearance) Clear Color (test code = Color) Yellow [facility] HospitalChoriogonadotropin.beta subunit [Units/volume] in Serum or [id number] 00:00:00* Test Item Value Reference Range Interpretation Comme nts HCG quantitative (test code = HCG quantitative) 1195.0 mIU/mL 0-5 [facility] Hospitalpap, LB + CT/NG/TV + reflex HR [id number] 00:00:00* Test Item Value Reference Range Interpretation Comme nts TP reflex HPV ASCUS,CT/NG/TV (test code = TP reflex HPV ASCUS,CT/NG/TV) abnormal A CT/NG (test code = CT/NG) normal trichomonas vaginalis addon - swab (test code = trichomonas vaginalis addon - swab) normal [facility] HospitalUrinalysis macro (dipstick) panel - [id number] 15:15:00* Test Item Value Reference Range Interpretation Comme nts Leukocytes (test code = Leukocytes) Trace Nitrite (test code = Nitrite) negative Urobilinogen (test code = Urobilinogen) .2 Protein (test code = Protein) Negative pH (test code = pH) 5.5 Blood (test code = Blood) Negative Specific Wittman (test code = Specific Wittman) 1.030 Ketone (test code = Ketone) Negative Bilirubin (test code = Bilirubin) Negative Glucose (test code = Glucose) Negative Appearance (test code = Appearance) Clear Color (test code = Color) Yellow [facility] Hospitalpregnancy test, [id number] 15:14:55* Test Item Value Reference Range Interpretation Comme nts Test (test code = Test) positive [facility] HospitalChoriogonadotropin.beta subunit [Units/volume] in Serum or [id number] 02:11:00* Test Item Value Reference Range Interpretation Comme nts HCG quantitative (test code = HCG quantitative) 494.0 mIU/mL 0-5 H [facility] HospitalReagin Ab [Presence] in Serum by [id number] 00:00:00* Test Item Value Reference Range Interpretation Comme nts Reagin Ab [Presence] in Seru m by RPR (test code = 92053-2) non reactive non reactive [facility] ProgramHIV 1 and 2 tests - Meaningful Use [id number] 00:00:00* Test Item Value Reference Range Interpretation Comme nts HIV 1+2 Ab+HIV1 p24 Ag [Presence] in Serum or Plasma by Immunoassay (test code = 36480-6) non reactive non reactive [facility] ProgramHepatitis B virus surface Ag [Presence] in Serum or Plasma by [id number] 00:00:00* Test Item Value Reference Range Interpretation Comme nts Hepatitis B virus surface Ag [Presence] in Serum or Plasma by Immunoassay (test code = 5196-1) negative negative [facility] Notes Date/Time Note Provider Source 2024-06-24 17:59:00 [facility] Neurology Progress Note REPORT#:[id number] REPORT STATUS: Signed REPORT INITIALIZATION DATE:06/24/24 TIME: 1758 PATIENT: JOJO HUBBARD UNIT #: [id number] ROOM[address] : 00 AGE: 23 SEX: F ATTEND: Cirilo Ivy MD ADM AUTHOR: Noemy Hayden MD REPT SERVICE DT/TIME: 06/24/241758 * ALL edits or amendments must be made on the electronic/computer document * Diagnosis, Assessment Plan Free Text A P: Patient is a 23 yo female with no significant PMH who presented to an OSH with ORTIZ, fever, photophobia. She underwent LP with 10-15cc removed and subsequent CTH read as showing diffuse cerebral edema. No alterations in mental status during this time. Headache is now worse when upright and low pressure/flow noted on LP here by neurosurgery. Given CSF results I would interpret her diffuse meningeal enhancement as a benign post LP finding more so than any acute infectious, neoplastic or other inflammatory process (ie neurosarcoidosis). From a neurology standpoint I would consider discontinuation of vancomycin and acyclovir. She does not need meningitic dosing of rocephin but I would defer to ICC/ID regarding need for treatment of possible UTI. CSF: RBC 418, WBC 1, Protein 30, Glucose 63 HIV neg Respiratory viral panel negative ESR 69 CRP 223 Headache, 2/2 systemic infection vs post LP headache Meningeal enhancement - likely benign post LP given neurologic exam and LP findings possible UTI chronic constipation Plan: Awaiting WNV and typhoid results - called [facility] to encourage them to do typhoid test stat. No CSF received for WNV Changed pain meds to Toradol 15 mg IV together with 2 Tylenol # 3 Q 6 h scheduled for 48 h yesterday. She still has some ORTIZ but states it is slowly improving. If still ORTIZ tomorrow ebvening - consult for blood patch Encouraging increase caffein intake DC fioricet, fentanyl and PO [place] Repeat MRI brain w/wo contrast in 2-4 weeks given additional subacute symptoms bowel regimen with miralax qd, increasing to bid if no improvement. Plan discussed with patients nurse at 1803 RPT #:[id number] END OF REPORT [facility] 2024-06-24 08:03:00 [facility] ([facility]) Hospitalist Progress Note REPORT#:[id number] REPORT STATUS: Signed REPORT INITIALIZATION DATE:06/24/24 TIME: 802 PATIENT: JOJO HUBBARD UNIT #: [id number] ROOM/BED: [place] [address] : 00 AGE: 23 SEX: F ATTEND: Cirilo Ivy MD ADM AUTHOR: Best Cota [employer] REPT SERVICE DT/TIME: 06/24/24 0803 * ALL edits or amendments must be made on the electronic/computer document * Subjective Chief complaint: She is having ORTIZ. C/o Back pain. No N/v/d. Breathing is stable. BP and HR stable. Review of Systems Constitutional: Reports: fatigue, generalized weakness. Eyes: Denies: discharge, itching, diplopia, eye pain. Respiratory: Denies: BANERJEE (dyspnea on exertion), non productive cough, pleurisy, pleuritic pain, pneumonia. Cardiovascular: Denies: chest pain, BANERJEE (dyspnea on exertion), edema, orthopnea, palpitations. GI: Denies: abdominal pain, diarrhea, hematemesis, hematochezia, hiatal hernia. : Denies: flank pain, nocturia, pelvic pain, , vaginal bleeding. Musculoskeletal: Denies: extremity pain, joint swelling. Heme: Denies: bleeding, bruising. Neuro: Reports: headache. Denies: change in LOC, confusion, dizziness, seizure, slurred speech, syncope. Objective General VS/I O: Vital Signs: Date Time Temp Pulse Resp B/P B/P Pulse O2 O2 Flow FiO2 Mean Ox Delivery Rate 06/24 0608 70 18 06/24 0600 63 17 06/24 0500 69 0 06/24 0326 60 14 06/24 0300 53 26 06/24 0200 77 27 06/24 0100 52 0 06/24 0000 53 20 06/24 0000 36.5 06/23 2037 55 34 06/23 2000 63 29 06/23 1959 36.8 06/23 1956 61 20 128/67 92 06/23 1900 61 18 06/23 1633 37.1 06/23 1546 56 21 136/88 108 06/23 1120 36.8 06/23 1053 66 25 133/88 106 PATIENT WEIGHT: Weight (lb): 147 Weight (oz): 0.77 Weight (kg): 66.700 Medications: Active Meds + DC'd Last 24 Hrs Ketorolac Tromethamine (TORADOL) 15 MG Q6H IV Acetaminophen/Codeine Phosphate (TYLENOL W CODEINE NO.3) 2 TAB Q6HR PO ( DC) Ketorolac Tromethamine (TORADOL) 15 MG Q6HR IV (DC) Azithromycin (ZITHROMAX) 500 MG DAILY PO Acetaminophen/Codeine Phosphate (TYLENOL W CODEINE NO.3) 2 TAB Q6H PO Acetaminophen/Butalbital/Caffeine (FIORICET) 1 TAB Q4H PRN PRN PO (DC) Ondansetron HCl (ZOFRAN) 4 MG Q4H PRN PRN IV Hydrocodone Bitart/Acetaminophen (NORCO 5/325) 1 TAB Q4H PRN PRN PO (DC) Tramadol HCl (ULTRAM) 50 MG Q6H PRN PRN PO (DC) Ceftriaxone Sodium (ROCEPHIN) 2,000 MG Q12H IV Sodium Chloride (SODIUM CHLORIDE) 10 ML Sodium Chloride (SODIUM CHLORIDE 0.9%) 1,000 ML .Q8H IV Mupirocin (BACTROBAN 2% 22 GM OINTMENT) 1 APPLIC BID NASAL Fentanyl Citrate (SUBLIMAZE) 50 MCG Q2H PRN PRN IV (DC) Polyethylene Glycol (MIRALAX) 17 GM DAILY PO Acetaminophen (TYLENOL) 650 MG Q4H PRN PRN PO Dietitian nutrition assessment The data set between the solid lines has been imported from the dietitian's assessment. BMI Calculated: 27.8 Nutrition related diagnosis: Nutrition diagnosis details: Nutrition problem: Nutrition etiology: Nutrition signs and symptoms: Nutrition prescription: Dietitian name: Assessment completed: Physical Exam General appearance: alert, awake, oriented Head/Eyes: atraumatic, clear cornea, EOMI ENT: moist mucosal membranes, normal ear left Neck: full range of motion, normal thyroid Cardiovascular: normal capillary refill, normal heart sounds, regular rate rhythm Respiratory: aerating well, symmetric expansion Abdomen: non-tender, normal bowel sounds Genitourinary: no bladder distention, no flank pain Extremities: moves all, normal capillary refill, normal range of motion Musculoskeletal: no CVA tenderness, no muscle spasm Neuro/[employer]: alert, oriented X 3 Skin: dry, intact Psychiatry: normal affect, normal judgment/insight Results Findings/Data: Laboratory Tests 06/24 030 Chemistry Sodium (134 - 147 mEq/L) 144 Potassium (3.4 - 5.0 mEq/L) 3.6 Chloride (100 - 108 mEq/L) 109 H Carbon Dioxide (21 - 33 mEq/l) 26 Anion Gap (0 - 20) 13 BUN (7 - 25 mg/dL) 6 L Creatinine (0.6 - 1.3 mg/dL) 0.6 Glomerular Filtr Rate (110 - 120) 129.3 H Glucose (77 - 141 mg/dL) 94 Calcium (8.0 - 10.5 mg/dL) 9.1 Ionized Calcium Pratibha (1.09 - 1.30 MMOL/L) 1.18 Phosphorus (2.5 - 4.9 MG/DL) 4.3 Magnesium (1.6 - 2.6 mg/dL) 1.68 Total Bilirubin (0.0 - 1.0 mg/dL) 0.20 AST (8 - 34 IUnit/L) 21 ALT (10 - 49 IUnit/L) 25 Total Alk Phosphatase (20 - 125 IUnit/L) 76 Total Protein (6.4 - 8.2 g/dL) 6.3 L Albumin (3.4 - 5.0 g/dL) 2.80 L Laboratory Tests 06/24 0306 Hematology WBC (4.5 - 11.0 x10 3/uL) 5.2 RBC (3.54 - 5.02 x10 6/uL) 2.46 L Hgb (11.0 - 15.0 g/dL) 7.3 L Hct (33.0 - 45.0 %) 23.0 L MCV (81.0 - 99.0 fL) 93.5 MCH (27.0 - 33.0 pg) 29.7 MCHC (33.0 - 37.0 g/dL) 31.7 L RDW (11.5 - 14.5 %) 13.6 Plt Count (150 - 400 x10 3/uL) 184 MPV (7.0 - 9.0 fL) 13.0 H Neut % (Auto) (56.0 - 77.0 %) 42.7 L Lymph % (Auto) (14.0 - 32.0 %) 51.0 H Mckenzie % (Auto) (4.8 - 9.0 %) 4.1 L Eos % (Auto) (0.3 - 3.7 %) 1.4 Baso % (Auto) (0.0 - 2.0 %) 0.6 Neut # (Auto) (2.0 - 7.6 x10 3/uL) 2.22 Lymph # (Auto) (1.0 - 3.8 x10 3/uL) 2.64 Mckenzie # (Auto) (0.1 - 0.8 x10 3/uL) 0.21 Eos # (Auto) (0.0 - 0.2 x10 3/uL) 0.07 Baso # (Auto) (0.0 - 0.2 x10 3/uL) 0.03 Abs Immat Gran (auto) (0.00 - 0.03 x10 3/uL) 0.01 Immature Gran % (0.0 - 2.0 %) 0.2 Nucleated RBC % (0 - 0 %) 0.0 Nucleated RBCs # (Man) (0.0 - 0.1 x10 3/uL) 0.00 Results: labs reviewed, vital signs reviewed, vital signs stable, current med profile rev'd Free Text Obj Notes Free Text Obj Notes: lab data reviewed Treatment Prophylaxis Treatment Prophylaxis Oxygen: room air Diagnosis, Assessment Plan Code status: full code Plan discussed with: patient, admitting physician, consultants, nurse Free Text DxA P Notes Free text DxA P notes: Assessment Cerebral edema Frontal headache/Headache, 2/2 systemic infection vs post LP headache Acute cystitis Meningeal enhancement - likely benign post LP given neurologic exam and LP findings Hyponatremia Plan: ICU. Waiting for Tphus panel result. Toradol 15 mg IV together with 2 Tylenol # 3 Q 6 h scheduled for 49 h. If no imorovement we will do a blood patch per Neurology. Continue Rocephine and doxycycline. Continue every 4 hours neuroexam IV fluids Pain meds. Antiemetics. FolLow labs and replace as needed. Monitor. at 0806 RPT #:[id number] END OF REPORT [facility] 2024-06-23 21:15:00 [facility] Neurology Progress Note REPORT#:[id number] REPORT STATUS: Signed REPORT INITIALIZATION DATE:06/23/24 TIME: 2114 PATIENT: JOJO HUBBARD UNIT #: [id number] ROOM/BED: [place] [address] : 00 AGE: 23 SEX: F ATTEND: Cirilo Ivy MD ADM AUTHOR: Noemy Hayden MD REPT SERVICE DT/TIME: 06/23/24 205 * ALL edits or amendments must be made on the electronic/computer document * Subjective Chief complaint: headache HPI: Patient is a 23 year old female with a PMH of recurrent UTI who presented to [facility] on 06/20 after developing fever, bifrontal headache on 06/20/24. Patient had a CTH that was read as concerning for cerebral edema and alumbar puncture was performed at the outside facility prior to transfer for neurosurgical evaluation. MRI brain performed here was concerning for diffuse meningeal enhancement. A lumbar puncture was performed by neurosurgery yesterday that was without pleocytosis or hypoglycorrhachia. Patient states that she was last feeling well on 06/19 but began to feel off while at work. She had to leave early and became febrile that day. She noted chills, fatigue, headache, decreased appetite. She felt worse the next day but states that she has had some similar symptoms with UTI. At the OSH she was informed she needed an LP on arrival and deliberated for some time but eventually acquiesced. She notes 2 attempts were required and 10-15cc were removed per OSH notes. No pleocytosis was present with 2 3 WBC per uL (0.002 and 0.003 k/ul) and 0 RBC, protein 14 and glucose 64. Patient reports continued headache that resolves briefly with pain medication but increases upon sitting up. Her headache has prohibited her from walking to the bathroom. Patient reports that she felt ill 2wks after her return from the [facility]. Her symptoms improved for 1 week but then she developed severe fatigue and diffuse muscle weakness as well as joint pains. This too has improved. Objective Physical Exam Head/Eyes: atraumatic, clear cornea, normal conjunctiva/sclera, normocephalic ENT: normal ear right, normal ear left, normal nose, normal pharynx Neck: full range of motion, non-tender, supple/no meningismus, no bruit / NL carotids, no masses or swelling Cardiovascular: regular rate and rhythm Respiratory: clear to auscultation, no distress Abdomen: non-tender, normal bowel sounds, no distention Extremities: moves all, normal inspection, no edema Musculoskeletal: full range of motion, normal inspection Neuro/[employer]: alert, oriented X 4 Skin: dry, intact Diagnosis, Assessment Plan Free Text A P: Patient is a 23 yo female with no significant PMH who presented to an OSH with ORTIZ, fever, photophobia. She underwent LP with 10-15cc removed and subsequent CTH read as showing diffuse cerebral edema. No alterations in mental status during this time. Headache is now worse when upright and low pressure/flow noted on LP here by neurosurgery. Given CSF results I would interpret her diffuse meningeal enhancement as a benign post LP finding more so than any acute infectious, neoplastic or other inflammatory process (ie neurosarcoidosis). From a neurology standpoint I would consider discontinuation of vancomycin and acyclovir. She does not need meningitic dosing of rocephin but I would defer to ICC/ID regarding need for treatment of possible UTI. CSF: RBC 418, WBC 1, Protein 30, Glucose 63 HIV neg Respiratory viral panel negative ESR 69 CRP 223 Headache, 2/2 systemic infection vs post LP headache Meningeal enhancement - likely benign post LP given neurologic exam and LP findings possible UTI chronic constipation Plan: Changing pain meds to RToradol 15 mg IV together with 2 Tylenol # 3 Q 6 h scheduled for 49 h. If no imorovement we will do a blood patch Encouraging increase caffein intake Awaiting WNV and typhoid results DC fioricet, fentanyl and PO Toradol In light of elevated ESR and CRP continue ICV abx and antivirals Repeat MRI brain w/wo contrast in 2-4 weeks given additional subacute symptoms bowel regimen with miralax qd, increasing to bid if no improvement. Plan discussed with patients nurse at 2128 RPT #:[id number] END OF REPORT [facility] 2024-06-23 10:21:00 [facility] ([facility]) Hospitalist Progress Note REPORT#:[id number] REPORT STATUS: Signed REPORT INITIALIZATION DATE:06/23/24 TIME: 1021 PATIENT: JOJO HUBBARD UNIT #: [id number] ROOM/BED: [place] [address] : 00 AGE: 23 SEX: F ATTEND: Cirilo Ivy MD ADM AUTHOR: Best Cota [employer] CHAIR REPT SERVICE DT/TIME: 06/23/24 1021 * ALL edits or amendments must be made on the electronic/computer document * Subjective Chief complaint: She is awake. Breathing is stable. BP and HR stable. Review of Systems Constitutional: Reports: fatigue, generalized weakness. Eyes: Denies: discharge, diplopia, eye pain. Respiratory: Denies: BANERJEE (dyspnea on exertion), non productive cough, pleurisy, pleuritic pain, pneumonia. Cardiovascular: Denies: BANERJEE (dyspnea on exertion), orthopnea. GI: Denies: anorexia, dysphagia, hematemesis. : Denies: dysuria, frequency, nocturia, pelvic pain, , urgency. Heme: Denies: bleeding, bruising, petechiae. Neuro: Denies: bowel dysfunction, dizziness, focal weakness, headache, seizure, spinning sensation. Objective General VS/I O: Vital Signs: Date Time Temp Pulse Resp B/P B/P Pulse O2 O2 Flow FiO2 Mean Ox Delivery Rate 06/23 0727 36.9 71 19 131/83 102 06/23 0400 36.7 06/23 0140 82 16 121/71 88 96 06/23 0000 36.7 06/22 2300 57 18 108/63 80 100 06/22 2234 62 22 110/64 81 99 06/22 2000 37.1 06/22 1811 67 21 109/69 84 100 06/22 1737 67 20 92/62 73 100 06/22 1656 74 32 128/94 108 100 06/22 1653 85 27 135/103 111 99 06/22 1600 37.0 06/22 1540 65 11 140/91 109 97 06/22 1423 54 17 103/55 74 98 06/22 1316 57 15 109/57 78 98 06/22 1101 54 19 106/64 80 99 06/22 1055 69 19 112/54 78 98 24 hour I O ending at 0700: 06/23 0700 06/22 1900 Intake Total 1375.00 1461.00 Output Total Balance 1375.00 1461.00 Intake, IV 1375.00 761.00 Intake, Oral 700 Number Voids 4 6 Patient 66.7 kg Weight Weight Bed scale Measurement Method PATIENT WEIGHT: Weight (lb): 147 Weight (oz): 0.77 Weight (kg): 66.700 Medications: Active Meds + DC'd Last 24 Hrs Azithromycin (ZITHROMAX) 500 MG DAILY PO Azithromycin (ZITHROMAX) 1,000 MG ONCE ONE PO (DC) Doxycycline Hyclate (VIBRAMYCIN) 100 MG Q12H IV (DC) Sodium Chloride (SODIUM CHLORIDE 0.9% 100 ML) 100 ML Acetaminophen/Butalbital/Caffeine (FIORICET) 1 TAB Q4H PRN PRN PO Ondansetron HCl (ZOFRAN) 4 MG Q4H PRN PRN IV Calcium Gluconate (Calcium Gluconate 1 GM/NS 50 mL (B2)) 50 ML ASDIR PRN IV (DC) Calcium Gluconate (Calcium Gluconate 2 GM/NS 100 mL (B2)) 100 ML ASDIR PRN IV (DC) Magnesium Sulfate (MAGNESIUM SULFATE 2GM/SWFI 50ML) 50 ML ASDIR PRN IV ( DC) Potassium Chloride (KCL 20MEQ/SWFI 100ML) 100 ML ASDIR PRN IV (DC) Potassium Chloride (POTASSIUM CHLORIDE 20MEQ TAB.ER) 20 MEQ ASDIR PRN PO (DC) Potassium Chloride (POTASSIUM CHLORIDE 20MEQ TAB.ER) 40 MEQ ASDIR PRN PO (DC) Potassium Phosphate (POTASSIUM PHOSPHATE) 15 MM ASDIR PRN IV (DC) Sodium Chloride (SODIUM CHLORIDE 0.9%) 100 ML Potassium Phosphate (POTASSIUM PHOSPHATE) 30 MM ASDIR PRN IV (DC) Sodium Chloride (SODIUM CHLORIDE 0.9%) 250 ML Sodium Phosphate (SODIUM PHOSPHATE) 15 MMOL ASDIR PRN IV (DC) Sodium Chloride (SODIUM CHLORIDE 0.9%) 100 ML Sodium Phosphate (SODIUM PHOSPHATE) 20 MMOL ASDIR PRN IV (DC) Sodium Chloride (SODIUM CHLORIDE 0.9%) 250 ML Sodium Phosphate (SODIUM PHOSPHATE) 30 MMOL ASDIR PRN IV (DC) Sodium Chloride (SODIUM CHLORIDE 0.9%) 250 ML Hydrocodone Bitart/Acetaminophen (NORCO 5/325) 1 TAB Q4H PRN PRN PO Tramadol HCl (ULTRAM) 50 MG Q6H PRN PRN PO Dexmedetomidine/Sodium Chloride (PRECEDEX 1000MCG/NS 250ML) 250 ML ASDIR IV (DC) Fentanyl Citrate (SUBLIMAZE) 50 MCG ONCE PRN IV (DC) Ceftriaxone Sodium (ROCEPHIN) 2,000 MG Q12H IV Sodium Chloride (SODIUM CHLORIDE) 10 ML Sodium Chloride (SODIUM CHLORIDE 0.9%) 1,000 ML .Q8H IV Mupirocin (BACTROBAN 2% 22 GM OINTMENT) 1 APPLIC BID NASAL Fentanyl Citrate (SUBLIMAZE) 50 MCG Q2H PRN PRN IV Polyethylene Glycol (MIRALAX) 17 GM DAILY PO Acetaminophen (TYLENOL) 650 MG Q4H PRN PRN PO Dietitian nutrition assessment The data set between the solid lines has been imported from the dietitian's assessment. BMI Calculated: 27.8 Nutrition related diagnosis: Nutrition diagnosis details: Nutrition problem: Nutrition etiology: Nutrition signs and symptoms: Nutrition prescription: Dietitian name: Assessment completed: Physical Exam General appearance: alert, awake Head/Eyes: atraumatic, clear cornea, EOMI ENT: moist mucosal membranes, normal ear left Neck: full range of motion, normal thyroid Cardiovascular: normal capillary refill, normal heart sounds, regular rate rhythm Respiratory: aerating well, symmetric expansion Abdomen: non-tender, normal bowel sounds Genitourinary: no bladder distention, no flank pain Extremities: moves all, normal capillary refill, normal range of motion Musculoskeletal: no CVA tenderness, no muscle spasm Neuro/[employer]: alert, oriented X 3 Skin: dry, intact Psychiatry: normal affect, normal judgment/insight Results Findings/Data: Laboratory Tests 06/23 0342 Chemistry Sodium (134 - 147 mEq/L) 141 Potassium (3.4 - 5.0 mEq/L) 3.7 Chloride (100 - 108 mEq/L) 108 Carbon Dioxide (21 - 33 mEq/l) 26 Anion Gap (0 - 20) 10 BUN (7 - 25 mg/dL) 6 L Creatinine (0.6 - 1.3 mg/dL) 0.6 Glomerular Filtr Rate (110 - 120) 129.3 H Glucose (77 - 141 mg/dL) 98 Calcium (8.0 - 10.5 mg/dL) 8.7 Phosphorus (2.5 - 4.9 MG/DL) 3.0 Magnesium (1.6 - 2.6 mg/dL) 1.78 Total Bilirubin (0.0 - 1.0 mg/dL) < 0.20 AST (8 - 34 IUnit/L) 18 ALT (10 - 49 IUnit/L) 19 Total Alk Phosphatase (20 - 125 IUnit/L) 66 Total Protein (6.4 - 8.2 g/dL) 5.7 L Albumin (3.4 - 5.0 g/dL) 2.50 L Laboratory Tests 06/23 0342 Hematology WBC (4.5 - 11.0 x10 3/uL) 6.3 RBC (3.54 - 5.02 x10 6/uL) 2.86 L Hgb (11.0 - 15.0 g/dL) 8.6 L Hct (33.0 - 45.0 %) 26.8 L MCV (81.0 - 99.0 fL) 93.7 MCH (27.0 - 33.0 pg) 30.1 MCHC (33.0 - 37.0 g/dL) 32.1 L RDW (11.5 - 14.5 %) 13.4 Plt Count (150 - 400 x10 3/uL) 150 MPV (7.0 - 9.0 fL) 12.5 H Neut % (Auto) (56.0 - 77.0 %) 56.1 Lymph % (Auto) (14.0 - 32.0 %) 36.6 H Mckenzie % (Auto) (4.8 - 9.0 %) 6.0 Eos % (Auto) (0.3 - 3.7 %) 0.8 Baso % (Auto) (0.0 - 2.0 %) 0.3 Neut # (Auto) (2.0 - 7.6 x10 3/uL) 3.55 Lymph # (Auto) (1.0 - 3.8 x10 3/uL) 2.31 Mckenzie # (Auto) (0.1 - 0.8 x10 3/uL) 0.38 Eos # (Auto) (0.0 - 0.2 x10 3/uL) 0.05 Baso # (Auto) (0.0 - 0.2 x10 3/uL) 0.02 Abs Immat Gran (auto) (0.00 - 0.03 x10 3/uL) 0.01 Immature Gran % (0.0 - 2.0 %) 0.2 Nucleated RBC % (0 - 0 %) 0.0 Nucleated RBCs # (Man) (0.0 - 0.1 x10 3/uL) 0.00 Free Text Obj Notes Free Text Obj Notes: lab data reviewed Diagnosis, Assessment Plan Code status: full code Plan discussed with: patient, admitting physician, consultants, nurse Free Text DxA P Notes Free text DxA P notes: Assessment Cerebral edema Frontal headache Acute cystitis Hyponatremia Plan: ICU. Continue intensive care unit monitoring, telemetry, strict FRANCISCO's, monitor, replace electrolytes Continue every 4 hours neuroexam Urinalysis with elevated WBC positive leukocyte esterase, LP, respiratory panel, COVID, chest x-ray normal. Continue empiric antibiotics IV fluids Brain MRI reviewed. Pain meds. Antiemetics. FolLow labs and replace as needed. Monitor. at 1041 RPT #:[id number] END OF REPORT [facility] 2024-06-22 17:33:00 [facility] ([facility] Critical Care Progress Note REPORT#:[id number] REPORT STATUS: Signed REPORT INITIALIZATION DATE:06/22/24 TIME: 1732 PATIENT: JOJO HUBBARD UNIT #: [id number] ROOM/BED: [place] [id number] : 00 AGE: 23 SEX: F ATTEND: Cirilo Ivy MD ADM AUTHOR: Agnieszka Almaguer NP REPT SERVICE DT/TIME: 06/22/241732 * ALL edits or amendments must be made on the electronic/computer document * Subjective Chief complaint: Fever HPI: 23-year-old female with no significant past medical history transferred from [facility] due to CT findings significant for cerebral edema. Patient was at [facility] [place] when she suddenly developed fever (103) 1 day assciated with chills, bilateral frontal headache that increase with sitting up and bending over, light sensitivity, chest tightness, SOB, lightheadedness and body aches. She took tylenol and Ibuprofen which did not improve her symptoms. Denies nausea/ vomiting, cough, sorethroat, diarrhea, neck stiffness, dysuria, skin rashes, weakness, no numbness. Denies use of illicit drugs, meds, herbs, new beauty products. She was in the [facility] last March, no pets, no sick-contacts. She had a C/S 8 months ago, currently . Family history of migraine in her mother and grandmother. 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 At [facility], she had an LP for suspected meningitis which came back negative, UA showed UTI likely a contaminated sample (epithelial >10), she was given rocophin and vancomycin. 06/22/2024 no Adverse event reported overnight. Patient is reporting that she feels much more better today regarding her symptomatology. She said her headaches are still there however they have decreased in intensity and she is able to go periods of time throughout the day in which she does not have a headache at all. Patient did report that the symptoms including headache fever myalgias are typical for her whenever she gets urinary tract infections which happens about twice yearly. She said she presented the outside facility as it seemed like the headaches lasted too long this time. Patient then stated that she had back pain and on assessment of that back pain it appears she has costovertebral angle pain and renal ultrasound was ordered and obtained which did not show any acute abnormalities regarding hydronephrosis or pyelonephrosis. Neurology does not feel that the imaging is reflective of any meningitis or otherwise infectious process and patient is neurologically intact and able to move her neck and has no neurological symptoms at all. ID has de-escalated antibiotics to p.o. at this time patient is okay to transfer out of ICU. Supportive care. Full code. Review of Systems All systems rev neg: except as marked Objective General VS/I O Last Documented: Result Date Time Pulse Ox 99 06/22 1653 B/P 135/103 06/22 1653 B/P Mean 111 06/22 1653 Pulse 85 06/22 1653 Resp 27 06/22 165 Temp 98.6 06/22 1600 O2 Delivery Room air 06/20 1954 24 hour I O ending at 0700: 08/30 0700 06/21 1900 Intake Total 1819.90 Output Total Balance 1819.90 Intake, IV 1819.90 Number 0 Bowel Movements Number Voids 5 3 PATIENT WEIGHT: Weight (lb): 140 Weight (oz): 14.01 Weight (kg): 63.900 Medications: Active Meds + DC'd Last 24 Hrs Azithromycin (ZITHROMAX) 500 MG DAILY PO Azithromycin (ZITHROMAX) 1,000 MG ONCE ONE PO (DC) Doxycycline Hyclate (VIBRAMYCIN) 100 MG Q12H IV (DC) Sodium Chloride (SODIUM CHLORIDE 0.9% 100 ML) 100 ML Acetaminophen/Butalbital/Caffeine (FIORICET) 1 TAB Q4H PRN PRN PO Ondansetron HCl (ZOFRAN) 4 MG Q4H PRN PRN IV Calcium Gluconate (Calcium Gluconate 1 GM/NS 50 mL (B2)) 50 ML ASDIR PRN IV Calcium Gluconate (Calcium Gluconate 2 GM/NS 100 mL (B2)) 100 ML ASDIR PRN IV Magnesium Sulfate (MAGNESIUM SULFATE 2GM/SWFI 50ML) 50 ML ASDIR PRN IV Potassium Chloride (KCL 20MEQ/SWFI 100ML) 100 ML ASDIR PRN IV Potassium Chloride (POTASSIUM CHLORIDE 20MEQ TAB.ER) 20 MEQ ASDIR PRN PO Potassium Chloride (POTASSIUM CHLORIDE 20MEQ TAB.ER) 40 MEQ ASDIR PRN PO Potassium Phosphate (POTASSIUM PHOSPHATE) 15 MM ASDIR PRN IV Sodium Chloride (SODIUM CHLORIDE 0.9%) 100 ML Potassium Phosphate (POTASSIUM PHOSPHATE) 30 MM ASDIR PRN IV Sodium Chloride (SODIUM CHLORIDE 0.9%) 250 ML Sodium Phosphate (SODIUM PHOSPHATE) 15 MMOL ASDIR PRN IV Sodium Chloride (SODIUM CHLORIDE 0.9%) 100 ML Sodium Phosphate (SODIUM PHOSPHATE) 20 MMOL ASDIR PRN IV Sodium Chloride (SODIUM CHLORIDE 0.9%) 250 ML Sodium Phosphate (SODIUM PHOSPHATE) 30 MMOL ASDIR PRN IV Sodium Chloride (SODIUM CHLORIDE 0.9%) 250 ML Hydrocodone Bitart/Acetaminophen (NORCO 5/325) 1 TAB Q4H PRN PRN PO Tramadol HCl (ULTRAM) 50 MG Q6H PRN PRN PO Dexmedetomidine/Sodium Chloride (PRECEDEX 1000MCG/NS 250ML) 250 ML ASDIR IV Fentanyl Citrate (SUBLIMAZE) 50 MCG ONCE PRN IV (DC) Acyclovir Sodium (ZOVIRAX) 650 MG Q8H IV (DC) Sodium Chloride (SODIUM CHLORIDE 0.9%) 250 ML Vancomycin HCl (VANCOMYCIN HCL) 1,000 MG Q8H IV (DC) Sodium Chloride (SODIUM CHLORIDE 0.9%) 250 ML Ceftriaxone Sodium (ROCEPHIN) 2,000 MG Q12H IV Sodium Chloride (SODIUM CHLORIDE) 10 ML Miscellaneous Information (VANCOMYCIN PHARMACY TO DOSE) 1 EACH ASDIR IV (DC) Sodium Chloride (SODIUM CHLORIDE 0.9%) 1,000 ML .Q8H IV Mupirocin (BACTROBAN 2% 22 GM OINTMENT) 1 APPLIC BID NASAL Fentanyl Citrate (SUBLIMAZE) 50 MCG Q2H PRN PRN IV Polyethylene Glycol (MIRALAX) 17 GM DAILY PO Acetaminophen (TYLENOL) 650 MG Q4H PRN PRN PO Physical Exam Head/eyes: atraumatic, clear cornea, EOMI, PERRLA Neck: non-tender, no bruit/NL carotids, no JVD, no masses or swelling Cardiovascular: normal capillary refill, normal heart sounds, regular rate and rhythm Respiratory: aerating well, clear to auscultation, symmetric expansion Abdomen: soft, non-tender, normal bowel sounds, lower c/s scar. Extremities: moves all, no clubbing, no cyanosis, no edema, Tattoo in her left chest and left forearm. Neuro/[employer]: alert, oriented X 3, CNII-XII intact, normal speech, no motor deficits, no sensory deficits Skin: intact, normal color, normal temperature, no rash Lymphatics: neck normal Psychiatry: normal affect, normal judgment/insight, normal mood Results Findings/data: Laboratory Tests 06/22 06/22 06/22 1003 1003 0313 Chemistry Sodium (134 - 147 mEq/L) 137 Potassium (3.4 - 5.0 mEq/L) 3.6 Chloride (100 - 108 mEq/L) 110 H Carbon Dioxide (21 - 33 mEq/l) 25 Anion Gap (0 - 20) 6 BUN (7 - 25 mg/dL) 6 L Creatinine (0.6 - 1.3 mg/dL) 0.6 Glomerular Filtr Rate (110 - 120) 129.3 H Glucose (77 - 141 mg/dL) 108 Calcium (8.0 - 10.5 mg/dL) 8.4 Ionized Calcium Pratibha (1.09 - 1.30 MMOL/L) 1.15 Phosphorus (2.5 - 4.9 MG/DL) 2.9 Magnesium (1.6 - 2.6 mg/dL) 1.67 Total Bilirubin (0.0 - 1.0 mg/dL) 0.20 AST (8 - 34 IUnit/L) 23 ALT (10 - 49 IUnit/L) 21 Total Alk Phosphatase (20 - 125 IUnit/L) 65 Total Creatine Kinase (34 - 145 Units/L) 47 C-Reactive Protein (<10.0 mg/L) 223.0 H Total Protein (6.4 - 8.2 g/dL) 5.7 L Albumin (3.4 - 5.0 g/dL) 2.50 L Laboratory Tests 06/22 06/22 1003 0313 Hematology WBC (4.5 - 11.0 x10 3/uL) 9.3 RBC (3.54 - 5.02 x10 6/uL) 2.92 L Hgb (11.0 - 15.0 g/dL) 8.8 L Hct (33.0 - 45.0 %) 27.0 L MCV (81.0 - 99.0 fL) 92.5 MCH (27.0 - 33.0 pg) 30.1 MCHC (33.0 - 37.0 g/dL) 32.6 L RDW (11.5 - 14.5 %) 13.2 Plt Count (150 - 400 x10 3/uL) 136 L MPV (7.0 - 9.0 fL) 11.7 H Neut % (Auto) (56.0 - 77.0 %) 66.0 Lymph % (Auto) (14.0 - 32.0 %) 24.2 Mckenzie % (Auto) (4.8 - 9.0 %) 8.9 Eos % (Auto) (0.3 - 3.7 %) 0.3 Baso % (Auto) (0.0 - 2.0 %) 0.3 Neut # (Auto) (2.0 - 7.6 x10 3/uL) 6.11 Lymph # (Auto) (1.0 - 3.8 x10 3/uL) 2.24 Mckenzie # (Auto) (0.1 - 0.8 x10 3/uL) 0.82 H Eos # (Auto) (0.0 - 0.2 x10 3/uL) 0.03 Baso # (Auto) (0.0 - 0.2 x10 3/uL) 0.03 Abs Immat Gran (auto) (0.00 - 0.03 x10 3/uL) 0.03 Immature Gran % (0.0 - 2.0 %) 0.3 Nucleated RBC % (0 - 0 %) 0.0 Nucleated RBCs # (Man) (0.0 - 0.1 x10 3/uL) 0.00 ESR Westergren (0 - 20 mm/hr) 69 H Laboratory Tests 06/22 1003 Toxicology Vancomycin Trough (10.0 - 20.0 mcg/mL) < 3.0 L Laboratory Tests 06/22/24 0313: [Embedded Image Not Available] Microbiology: 06/21 1031 CSF: Fungal Smear - RES 06/21 1031 CSF: Fungal Culture - RES 06/21 1031 CSF: CSF Culture - RES 06/21 1031 CSF: CSF Culture - RES 06/21 1031 CSF: Gram Stain - RES 06/21 0301 Blood: Blood Culture - RES 06/21 0301 Blood: Blood Culture Gram Stain - RES 06/21 0230 NASAL: MRSA DNA Surveillance Screen - ORD 06/20 2325 NASAL: MRSA DNA Surveillance Screen - COMP Radiology data Recent Impressions: ULTRASOUND - US RETROPERITONEAL COM 06/22 1358 Report Impression - Status: SIGNED Entered: 06/22/2024 1414 IMPRESSION: Unremarkable renal ultrasound. Impression By: [email or web address] - Justin Adams M.D. Results: vital signs reviewed, vital signs stable, rhythm personally rev'd, x- ray personally reviewed, current med profile rev'd Diagnosis, Assessment Plan Free text A P: 23 years old female with no significant past medical history was transferred from [facility] with fever and bi frontal headaches. CT done there showed cerebral edema. 06/21/2024 Patient underwent MRI which revealed conspicuous dural and left leptomeningeal enhancement which may reflect infectious/inflammatory process. CSF obtained per repeat LP. ID was consulted and patient has been started on [employer] coverage including bank/acyclovir/ceftriaxone. No neurosurgical recs at this time. Continue supportive care. She is full code. Continue ICU and monitor neurochecks every hour. Full code 06/22/2024 Adverse event reported overnight. Patient is reporting that she feels much more better today regarding her symptomatology. She said her headaches are still there however they have decreased in intensity and she is able to go periods of time throughout the day in which she does not have a headache at all. Patient did report that the symptoms including headache fever myalgias are typical for her whenever she gets urinary tract infections which happens about twice yearly. She said she presented the outside facility as it seemed like the headaches lasted too long this time. Patient then stated that she had back pain and on assessment of that back pain it appears she has costovertebral angle pain and renal ultrasound was ordered and obtained which did not show any acute abnormalities regarding hydronephrosis or pyelonephrosis. Neurology does not feel that the imaging is reflective of any meningitis or otherwise infectious process and patient is neurologically intact and able to move her neck and has no neurological symptoms at all. ID has de-escalated antibiotics to p.o. at this time patient is okay to transfer out of ICU. Supportive care. Full code. Neurology *Cerebral edema - CT done in [place] showed cerebral edema. - Brain MRI with and without contrast. - Neurocheck q2hrs. - Neuro on board - f/u recommendations. - Pain control. Infectious disease *Febrile illness - Questionable acute cystitis - UA showed elevated WBCs and +Leuko esterase - likely contaminated - Repeat UA w/ reflex - CT abd pelvis if positive. - blood cultures sent. - LP, resp viral panel, COVID, CXR normal. - Start empiric antibiotics - Rocephin 1g daily. - Tylenol for fever. Renal *Hyponatremia - Na 134. - Start IVF plasmalight. - Monitor electrolytes. Pulmonary - supplemental oxygen as needed. Cardiovascular - Monitor vitals, Keep MAP>65. Gastrointestinal - Diet as tolerated. Hematology/ Oncology - Monitor CBC. Endocrine - Monitor BS. - Prevent hypoglycemia/ hyperglycemia. GI ppx: not indicated. DVT ppx: Lovenox. Bowel regimen: Miralax. Diet: Regular. Code status: Full code. Plan of care was discussed with the attending. I have spent 35 minutes time assessing, reviewing labs, medication, and imaging and discussing plan of care with critical care diamond driller, neurosurgeon and infectious disease specialist at 1741 RPT #:[id number] END OF REPORT [facility] 2024-06-22 17:27:00 [facility] ([facility]) Hospitalist Progress Note REPORT#:[id number] REPORT STATUS: Signed REPORT INITIALIZATION DATE:06/22/24 TIME: 1726 PATIENT: JOJO HUBBARD UNIT #: [id number] ROOM/BED: [place] [id number] : 00 AGE: 23 SEX: F ATTEND: Cirilo Ivy MD ADM AUTHOR: Do Hannon MD REPT SERVICE DT/TIME: 06/22/241726 * ALL edits or amendments must be made on the electronic/computer document * Subjective Free Text Subj Notes Free Text Subj Notes: Patient is awake, denies any complaint no chest pain no shortness of breath no headache no change vision no nausea no vomiting. Patient is overall feeling much better LP is negative, respiratory viral, urine cultures pending Intermittent fever noted Review of Systems All systems rev neg: except as noted Objective General VS/I O: Vital Signs: Date Time Temp Pulse Resp B/P B/P Pulse O2 O2 Flow FiO2 Mean Ox Delivery Rate 06/22 1653 85 27 135/103 111 99 06/22 1600 98.6 06/22 1540 65 11 140/91 109 97 06/22 1423 54 17 103/55 74 98 06/22 1316 57 15 109/57 78 98 06/22 1101 54 19 106/64 80 99 06/22 1055 69 19 112/54 78 98 06/22 0901 57 98/53 77 06/22 0801 118/58 81 92 06/22 0700 92/53 68 100 06/22 0519 68 6 99/65 78 100 06/22 0400 98.1 06/22 0355 89/63 72 95 06/22 0200 96/64 75 / 0100 87/54 66 100 / 0000 100.0 06/22 0000 88/50 63 100 06/21 2300 89 18 93/54 68 97 06/21 2200 114 19 99/54 71 97 06/21 2100 110 12 128/66 86 91 08/29 2000 103.0 08/29 2000 107 19 124/70 91 92 06/21 1900 104 13 135/68 95 95 06/21 1805 99 13 121/63 85 99 24 hour I O ending at 0700: 06/22 0700 06/21 1900 Intake Total 1819.90 Output Total Balance 1819.90 Intake, IV 1819.90 Number 0 Bowel Movements Number Voids 5 3 PATIENT WEIGHT: Weight (lb): 140 Weight (oz): 14.01 Weight (kg): 63.900 Medications: Active Meds + DC'd Last 24 Hrs Azithromycin (ZITHROMAX) 500 MG DAILY PO Azithromycin (ZITHROMAX) 1,000 MG ONCE ONE PO (DC) Doxycycline Hyclate (VIBRAMYCIN) 100 MG Q12H IV (DC) Sodium Chloride (SODIUM CHLORIDE 0.9% 100 ML) 100 ML Acetaminophen/Butalbital/Caffeine (FIORICET) 1 TAB Q4H PRN PRN PO Ondansetron HCl (ZOFRAN) 4 MG Q4H PRN PRN IV Calcium Gluconate (Calcium Gluconate 1 GM/NS 50 mL (B2)) 50 ML ASDIR PRN IV Calcium Gluconate (Calcium Gluconate 2 GM/NS 100 mL (B2)) 100 ML ASDIR PRN IV Magnesium Sulfate (MAGNESIUM SULFATE 2GM/SWFI 50ML) 50 ML ASDIR PRN IV Potassium Chloride (KCL 20MEQ/SWFI 100ML) 100 ML ASDIR PRN IV Potassium Chloride (POTASSIUM CHLORIDE 20MEQ TAB.ER) 20 MEQ ASDIR PRN PO Potassium Chloride (POTASSIUM CHLORIDE 20MEQ TAB.ER) 40 MEQ ASDIR PRN PO Potassium Phosphate (POTASSIUM PHOSPHATE) 15 MM ASDIR PRN IV Sodium Chloride (SODIUM CHLORIDE 0.9%) 100 ML Potassium Phosphate (POTASSIUM PHOSPHATE) 30 MM ASDIR PRN IV Sodium Chloride (SODIUM CHLORIDE 0.9%) 250 ML Sodium Phosphate (SODIUM PHOSPHATE) 15 MMOL ASDIR PRN IV Sodium Chloride (SODIUM CHLORIDE 0.9%) 100 ML Sodium Phosphate (SODIUM PHOSPHATE) 20 MMOL ASDIR PRN IV Sodium Chloride (SODIUM CHLORIDE 0.9%) 250 ML Sodium Phosphate (SODIUM PHOSPHATE) 30 MMOL ASDIR PRN IV Sodium Chloride (SODIUM CHLORIDE 0.9%) 250 ML Hydrocodone Bitart/Acetaminophen (NORCO 5/325) 1 TAB Q4H PRN PRN PO Tramadol HCl (ULTRAM) 50 MG Q6H PRN PRN PO Dexmedetomidine/Sodium Chloride (PRECEDEX 1000MCG/NS 250ML) 250 ML ASDIR IV Fentanyl Citrate (SUBLIMAZE) 50 MCG ONCE PRN IV (DC) Acyclovir Sodium (ZOVIRAX) 650 MG Q8H IV (DC) Sodium Chloride (SODIUM CHLORIDE 0.9%) 250 ML Vancomycin HCl (VANCOMYCIN HCL) 1,000 MG Q8H IV (DC) Sodium Chloride (SODIUM CHLORIDE 0.9%) 250 ML Ceftriaxone Sodium (ROCEPHIN) 2,000 MG Q12H IV Sodium Chloride (SODIUM CHLORIDE) 10 ML Miscellaneous Information (VANCOMYCIN PHARMACY TO DOSE) 1 EACH ASDIR IV (DC) Sodium Chloride (SODIUM CHLORIDE 0.9%) 1,000 ML .Q8H IV Mupirocin (BACTROBAN 2% 22 GM OINTMENT) 1 APPLIC BID NASAL Fentanyl Citrate (SUBLIMAZE) 50 MCG Q2H PRN PRN IV Polyethylene Glycol (MIRALAX) 17 GM DAILY PO Acetaminophen (TYLENOL) 650 MG Q4H PRN PRN PO Dietitian nutrition assessment The data set between the solid lines has been imported from the dietitian's assessment. BMI Calculated: 26.6 Nutrition related diagnosis: Nutrition diagnosis details: Nutrition problem: Nutrition etiology: Nutrition signs and symptoms: Nutrition prescription: Dietitian name: Assessment completed: Physical Exam General appearance: alert, awake Head/Eyes: atraumatic, clear cornea, EOMI ENT: moist mucosal membranes, normal ear left Neck: full range of motion, normal thyroid Cardiovascular: normal capillary refill, normal heart sounds, regular rate rhythm Respiratory: aerating well, symmetric expansion Abdomen: non-tender, normal bowel sounds Extremities: moves all, normal capillary refill, normal range of motion Neuro/[employer]: alert, oriented X 3 Skin: dry, intact Psychiatry: normal affect, normal judgment/insight Free Text Obj Notes Free Text Obj Notes: lab data reviewed Diagnosis, Assessment Plan Free Text DxA P Notes Free text DxA P notes: Assessment Cerebral edema Frontal headache Acute cystitis Hyponatremia Plan Continue intensive care unit monitoring, telemetry, strict FRANCISCO's, monitor, replace electrolytes Continue every 4 hours neuroexam Urinalysis with elevated WBC positive leukocyte esterase, LP, respiratory panel, COVID, chest x-ray normal continue empiric antibiotics IV fluids Brain MRI reviewed at 0904 RPT #:[id number] END OF REPORT [facility] 2024-06-22 13:49:00 [facility] ([facility]) Infectious Dis. Progress Note REPORT#:[id number] REPORT STATUS: Signed REPORT INITIALIZATION DATE:06/22/24 TIME: 1348 PATIENT: JOJO HUBBARD UNIT #: [id number] ROOM/BED: [place] [id number] : 00 AGE: 23 SEX: F ATTEND: Cirilo Ivy MD ADM AUTHOR: Mauro George MD REPT SERVICE DT/TIME: 06/22/24 1349 * ALL edits or amendments must be made on the electronic/computer document * Subjective Chief complaint: headache HPI: This is a 23-year-old female patient with history of recurrent UTIs and headaches associated with UTI who was transferred from [facility] where she had presented with high fevers and severe headache. CT showed cerebral edema The headaches were described as bilateral frontal headache that increased with sitting up and bending over and increase in lying down, associated with light sensitivity chest tightness shortness of breath and bodyaches. She had an LP which was inconclusive Her urinalysis showed some pyuria and bacteria and she was transferred here for further care She has 2 children who are 8 months and 5 years old They have no current symptoms There is no history of recent travel or sick contacts Patient reports: No: abdominal pain, back pain, burning with urination, cough, fever, headache, nausea. Review of Systems Free Text ROS Notes Free Text ROS Notes: 14 systems reviewed and negative apart from pertinent points in the HPI Objective Physical Exam Head/Eyes: atraumatic, clear cornea, EOMI, normal conjunctiva/sclera, normal eyelids/periorb, normocephalic, PERRL ENT: normal dentition, normal nose, normal pharynx, normal sinus Neck: normal thyroid, no lymphadenopathy Cardiovascular: regular rate rhythm Respiratory: clear to auscultation, no distress Abdomen: non-tender, soft, no distention, no guarding, no mass/organomegaly, no rebound Extremities: moves all, no edema Results Findings/Data: Laboratory Tests 06/22 06/22 06/22 1003 1003 0313 Chemistry Sodium (134 - 147 mEq/L) 137 Potassium (3.4 - 5.0 mEq/L) 3.6 Chloride (100 - 108 mEq/L) 110 H Carbon Dioxide (21 - 33 mEq/l) 25 Anion Gap (0 - 20) 6 BUN (7 - 25 mg/dL) 6 L Creatinine (0.6 - 1.3 mg/dL) 0.6 Glomerular Filtr Rate (110 - 120) 129.3 H Glucose (77 - 141 mg/dL) 108 Calcium (8.0 - 10.5 mg/dL) 8.4 Ionized Calcium Pratibha (1.09 - 1.30 MMOL/L) 1.15 Phosphorus (2.5 - 4.9 MG/DL) 2.9 Magnesium (1.6 - 2.6 mg/dL) 1.67 Total Bilirubin (0.0 - 1.0 mg/dL) 0.20 AST (8 - 34 IUnit/L) 23 ALT (10 - 49 IUnit/L) 21 Total Alk Phosphatase (20 - 125 IUnit/L) 65 Total Creatine Kinase (34 - 145 Units/L) 47 C-Reactive Protein (<10.0 mg/L) 223.0 H Total Protein (6.4 - 8.2 g/dL) 5.7 L Albumin (3.4 - 5.0 g/dL) 2.50 L Laboratory Tests 06/22 06/22 1003 0313 Hematology WBC (4.5 - 11.0 x10 3/uL) 9.3 RBC (3.54 - 5.02 x10 6/uL) 2.92 L Hgb (11.0 - 15.0 g/dL) 8.8 L Hct (33.0 - 45.0 %) 27.0 L MCV (81.0 - 99.0 fL) 92.5 MCH (27.0 - 33.0 pg) 30.1 MCHC (33.0 - 37.0 g/dL) 32.6 L RDW (11.5 - 14.5 %) 13.2 Plt Count (150 - 400 x10 3/uL) 136 L MPV (7.0 - 9.0 fL) 11.7 H Neut % (Auto) (56.0 - 77.0 %) 66.0 Lymph % (Auto) (14.0 - 32.0 %) 24.2 Mckenzie % (Auto) (4.8 - 9.0 %) 8.9 Eos % (Auto) (0.3 - 3.7 %) 0.3 Baso % (Auto) (0.0 - 2.0 %) 0.3 Neut # (Auto) (2.0 - 7.6 x10 3/uL) 6.11 Lymph # (Auto) (1.0 - 3.8 x10 3/uL) 2.24 Mckenzie # (Auto) (0.1 - 0.8 x10 3/uL) 0.82 H Eos # (Auto) (0.0 - 0.2 x10 3/uL) 0.03 Baso # (Auto) (0.0 - 0.2 x10 3/uL) 0.03 Abs Immat Gran (auto) (0.00 - 0.03 x10 3/uL) 0.03 Immature Gran % (0.0 - 2.0 %) 0.3 Nucleated RBC % (0 - 0 %) 0.0 Nucleated RBCs # (Man) (0.0 - 0.1 x10 3/uL) 0.00 ESR Westergren (0 - 20 mm/hr) 69 H Laboratory Tests 06/21 1524 Other Body Source CSF Color (COLORLESS) COLORLESS CSF Cell Count Tube # TUBE #1 - GLU/PROT CSF Glucose (40 - 80 MG/DL) 63 CSF Total Protein (15 - 45 mg/dL) 30.0 06/21 1524 Other Body Source CSF Appearance (CLEAR) CLEAR CSF RBC (0 - 0 MM3) 418 H CSF Cell Count Tube # TUBE #3 - CELL COUNT CSF Total Nucleated Man (0 - 5 MM3) 1 CSF Lymphocytes (28 - 96 %) 74 CSF Monocytes (16 - 56 %) 13 L CSF Eosinophils (%) 0 CSF Basophils (%) 0 CSF Polynuclear WBCs (0 - 7 %) 13 H CSF Macrophages (%) 0 CSF Total Protein (15 - 45 mg/dL) TNP Laboratory Tests 06/22 1003 Toxicology Vancomycin Trough (10.0 - 20.0 mcg/mL) < 3.0 L Diagnosis, Assessment Plan Free Text A P: 1-high fevers with intractable headache with MRI showing dural and leptomeningeal enhancement Rule out bacterial or viral encephalitis or autoimmune encephalitis 2-UTI versus asymptomatic bacteriuria Recommendations Will start empiric treatment for meningitis and encephalitis The LP at [facility] was inconclusive Respiratory viral panel was negative We will repeat lumbar puncture Follow culture data and clinical response 06/22 LP is negative Respiratory viral panel is negative Urine cultures are pending Patient continues to be intermittently febrile She is gives a history of being exposed to cats at her mother's house Will start doxycycline IV empirically for typhus and check typhus panel Continue Rocephin Discontinue all other antimicrobials at 1350 RPT #:[id number] END OF REPORT [facility] 2024-06-22 06:14:00 [facility]) Neurology Consultation Note REPORT#:[id number] REPORT STATUS: Signed REPORT INITIALIZATION DATE:06/22/24 TIME: 613 PATIENT: JOJO HUBBARD UNIT #: [id number] ROOM/BED: [place] [address] : 00 AGE: 23 SEX: F ATTEND: Cirilo Ivy MD ADM AUTHOR: Wayne Medrano MD REPT SERVICE DT/TIME: 06/22/24 0614 * ALL edits or amendments must be made on the electronic/computer document * History of Present Illness HPI Hand dominance: right Requesting clinician: Mandy Almaguer NP Reason for consult: leptomeningeal enhancement, fever Chief complaint: headache PCP: PCP: Undefined Provider HPI: Patient is a 23 year old female with a PMH of recurrent UTI who presented to [facility] on 06/20 after developing fever, bifrontal headache on 06/20/24. Patient had a CTH that was read as concerning for cerebral edema and alumbar puncture was performed at the outside facility prior to transfer for neurosurgical evaluation. MRI brain performed here was concerning for diffuse meningeal enhancement. A lumbar puncture was performed by neurosurgery yesterday that was without pleocytosis or hypoglycorrhachia. Patient states that she was last feeling well on 06/19 but began to feel off while at work. She had to leave early and became febrile that day. She noted chills, fatigue, headache, decreased appetite. She felt worse the next day but states that she has had some similar symptoms with UTI. At the OSH she was informed she needed an LP on arrival and deliberated for some time but eventually acquiesced. She notes 2 attempts were required and 10-15cc were removed per OSH notes. No pleocytosis was present with 2 3 WBC per uL (0.002 and 0.003 k/ul) and 0 RBC, protein 14 and glucose 64. Patient reports continued headache that resolves briefly with pain medication but increases upon sitting up. Her headache has prohibited her from walking to the bathroom. Patient reports that she felt ill 2wks after her return from the [facility]. Her symptoms improved for 1 week but then she developed severe fatigue and diffuse muscle weakness as well as joint pains. This too has improved. History - Adult longitudinal Additional medical history: Medically free. Past surgical history: Reports: . Additional surgical history: C/S 8 months ago. Additional family history: Gradfather/ uncle - HTN, DM, Cardiac disease. Mother - Migraine. Alcohol use: Denies EtOH use Drug use: Denies recreational drugs Smoking status for patients 13 years old or older: Current every day smoker ( Vape) Date last smoked: 06/20/24 Additional social history: Lives with his boyfriend. Vapes. 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 Allergies: Coded Allergies: No Known Allergies (06/20/24) Review of Systems Constitutional: Reports: chills, fatigue, fever. Skin: Reports: bruising. GI: Reports: anorexia, constipation. Musculoskeletal: Reports: lumbar pain. Neuro: Reports: headache. All systems rev neg: except as marked Objective General VS: Last Documented: Result Date Time Pulse Ox 100 06/22 519 B/P 99/65 06/22 519 B/P Mean 78 06/22 519 Pulse 68 06/22 519 Resp 6 06/22 519 Temp 36.7 06/22 0400 O2 Delivery Room air 06/20 1954 PATIENT WEIGHT: Weight (lb): 140 Weight (oz): 14.01 Weight (kg): 63.900 Medications Current Home Medications No Known Home Medications Active Meds + DC'd Last 24 Hrs Ondansetron HCl (ZOFRAN) 4 MG Q4H PRN PRN IV Calcium Gluconate (Calcium Gluconate 1 GM/NS 50 mL (B2)) 50 ML ASDIR PRN IV Calcium Gluconate (Calcium Gluconate 2 GM/NS 100 mL (B2)) 100 ML ASDIR PRN IV Magnesium Sulfate (MAGNESIUM SULFATE 2GM/SWFI 50ML) 50 ML ASDIR PRN IV Potassium Chloride (KCL 20MEQ/SWFI 100ML) 100 ML ASDIR PRN IV Potassium Chloride (POTASSIUM CHLORIDE 20MEQ TAB.ER) 20 MEQ ASDIR PRN PO Potassium Chloride (POTASSIUM CHLORIDE 20MEQ TAB.ER) 40 MEQ ASDIR PRN PO Potassium Phosphate (POTASSIUM PHOSPHATE) 15 MM ASDIR PRN IV Sodium Chloride (SODIUM CHLORIDE 0.9%) 100 ML Potassium Phosphate (POTASSIUM PHOSPHATE) 30 MM ASDIR PRN IV Sodium Chloride (SODIUM CHLORIDE 0.9%) 250 ML Sodium Phosphate (SODIUM PHOSPHATE) 15 MMOL ASDIR PRN IV Sodium Chloride (SODIUM CHLORIDE 0.9%) 100 ML Sodium Phosphate (SODIUM PHOSPHATE) 20 MMOL ASDIR PRN IV Sodium Chloride (SODIUM CHLORIDE 0.9%) 250 ML Sodium Phosphate (SODIUM PHOSPHATE) 30 MMOL ASDIR PRN IV Sodium Chloride (SODIUM CHLORIDE 0.9%) 250 ML Hydrocodone Bitart/Acetaminophen (NORCO 5/325) 1 TAB Q4H PRN PRN PO Tramadol HCl (ULTRAM) 50 MG Q6H PRN PRN PO Ceftriaxone Sodium (ROCEPHIN 1000MG VIAL) 1,000 MG Q24H IV (DC) Sodium Chloride (SODIUM CHLORIDE) 10 ML Dexmedetomidine/Sodium Chloride (PRECEDEX 1000MCG/NS 250ML) 250 ML ASDIR IV Fentanyl Citrate (SUBLIMAZE) 100 MCG NOW ONE IV (DC) Midazolam HCl (VERSED) 2 MG ONCE ONE IV (DC) Midazolam HCl (VERSED) 0 .STK-MED ONE IV (DC) Fentanyl Citrate (SUBLIMAZE) 0 .STK-MED ONE IV (DC) Lidocaine HCl (XYLOCAINE) 0 .STK-MED ONE .ROUTE (DC) Fentanyl Citrate (SUBLIMAZE) 50 MCG ONCE PRN IV Acyclovir Sodium (ZOVIRAX) 650 MG Q8H IV (CKD) Sodium Chloride (SODIUM CHLORIDE 0.9%) 250 ML Vancomycin HCl (VANCOMYCIN HCL) 1,000 MG Q8H IV Sodium Chloride (SODIUM CHLORIDE 0.9%) 250 ML Acyclovir Sodium (ZOVIRAX) 750 MG Q8H IV (CAN) Sodium Chloride (SODIUM CHLORIDE 0.9%) 250 ML Ceftriaxone Sodium (ROCEPHIN) 2,000 MG Q12H IV Sodium Chloride (SODIUM CHLORIDE) 10 ML Miscellaneous Information (VANCOMYCIN PHARMACY TO DOSE) 1 EACH ASDIR IV (CKD) Miscellaneous Information (VANCOMYCIN PHARMACY TO DOSE) 1 EACH ASDIR IV (CAN) Sodium Chloride (SODIUM CHLORIDE 0.9%) 1,000 ML .Q8H IV Mupirocin (BACTROBAN 2% 22 GM OINTMENT) 1 APPLIC BID NASAL Fentanyl Citrate (SUBLIMAZE) 50 MCG Q2H PRN PRN IV Gadoterate Meglumine (DOTAREM) 13 ML .STK-MED ONE IV (DC) Enoxaparin Sodium (lovENOX) 40 MG Q24H SUBQ (DC) Polyethylene Glycol (MIRALAX) 17 GM DAILY PO Acetaminophen (TYLENOL) 650 MG Q4H PRN PRN PO Parenteral Electrolytes (PLASMA-LYTE A pH 7.4) 1,000 ML .Q8H IV (DC) Dietitian nutrition assessment The data set between the solid lines has been imported from the dietitian's assessment. BMI Calculated: 26.6 Nutrition related diagnosis: Nutrition diagnosis details: Nutrition problem: Nutrition etiology: Nutrition signs and symptoms: Nutrition prescription: Dietitian name: Assessment completed: Results Findings/Data: Laboratory Tests 06/22 1054 1054 1054 Chemistry Sodium (134 - 147 mEq/L) 137 133 L Potassium (3.4 - 5.0 mEq/L) 3.6 3.9 Chloride (100 - 108 mEq/L) 110 H 106 Carbon Dioxide (21 - 33 mEq/l) 25 24 Anion Gap (0 - 20) 6 7 BUN (7 - 25 mg/dL) 6 L 8 Creatinine (0.6 - 1.3 mg/dL) 0.6 0.7 Glomerular Filtr Rate (110 - 120) 129.3 H 124.6 H Glucose (77 - 141 mg/dL) 108 109 Lactic Acid (0.4 - 1.9 mmol/L) 0.8 Calcium (8.0 - 10.5 mg/dL) 8.4 8.7 Ionized Calcium Pratibha (1.09 - 1.30 MMOL/L) 1.15 1.12 Phosphorus (2.5 - 4.9 MG/DL) 2.9 1.9 L Magnesium (1.6 - 2.6 mg/dL) 1.67 1.78 Total Bilirubin (0.0 - 1.0 mg/dL) 0.20 0.40 AST (8 - 34 IUnit/L) 23 16 ALT (10 - 49 IUnit/L) 21 11 Total Alk Phosphatase (20 - 125 IUnit/L) 65 75 Ammonia (11 - 35 umol/L) 11 Troponin I High Sens (0 - 34 ng/L) < 3 Total Protein (6.4 - 8.2 g/dL) 5.7 L 6.5 Albumin (3.4 - 5.0 g/dL) 2.50 L 3.10 L TSH (0.42 - 5.47) 1.28 Laboratory Tests 06/21 1054 Coagulation INR (0.8 - 1.2) 1.5 H PTT (Hiro) (25.0 - 39.5 Seconds) 34.3 PT Patient/Control Mix (9.3 - 12.9 SECONDS) 16.1 H Laboratory Tests 06/22 06/21 0313 1054 Hematology WBC (4.5 - 11.0 x10 3/uL) 9.3 10.7 RBC (3.54 - 5.02 x10 6/uL) 2.92 L 3.31 L Hgb (11.0 - 15.0 g/dL) 8.8 L 9.9 L Hct (33.0 - 45.0 %) 27.0 L 30.9 L MCV (81.0 - 99.0 fL) 92.5 93.4 MCH (27.0 - 33.0 pg) 30.1 29.9 MCHC (33.0 - 37.0 g/dL) 32.6 L 32.0 L RDW (11.5 - 14.5 %) 13.2 13.2 Plt Count (150 - 400 x10 3/uL) 136 L 155 MPV (7.0 - 9.0 fL) 11.7 H 11.8 H Neut % (Auto) (56.0 - 77.0 %) 66.0 80.4 H Lymph % (Auto) (14.0 - 32.0 %) 24.2 11.4 L Mckenzie % (Auto) (4.8 - 9.0 %) 8.9 7.7 Eos % (Auto) (0.3 - 3.7 %) 0.3 0.0 L Baso % (Auto) (0.0 - 2.0 %) 0.3 0.2 Neut # (Auto) (2.0 - 7.6 x10 3/uL) 6.11 8.61 H Lymph # (Auto) (1.0 - 3.8 x10 3/uL) 2.24 1.22 Mckenzie # (Auto) (0.1 - 0.8 x10 3/uL) 0.82 H 0.83 H Eos # (Auto) (0.0 - 0.2 x10 3/uL) 0.03 0.00 Baso # (Auto) (0.0 - 0.2 x10 3/uL) 0.03 0.02 Abs Immat Gran (auto) (0.00 - 0.03 x10 3/uL) 0.03 0.03 Immature Gran % (0.0 - 2.0 %) 0.3 0.3 Nucleated RBC % (0 - 0 %) 0.0 0.0 Nucleated RBCs # (Man) (0.0 - 0.1 x10 3/uL) 0.00 0.00 Laboratory Tests 06/21 152 Other Body Source CSF Color (COLORLESS) COLORLESS CSF Cell Count Tube # TUBE #1 - GLU/PROT CSF Glucose (40 - 80 MG/DL) 63 CSF Total Protein (15 - 45 mg/dL) 30.0 06/21 1524 Other Body Source CSF Appearance (CLEAR) CLEAR CSF RBC (0 - 0 MM3) 418 H CSF Cell Count Tube # TUBE #3 - CELL COUNT CSF Total Nucleated Man (0 - 5 MM3) 1 CSF Lymphocytes (28 - 96 %) 74 CSF Monocytes (16 - 56 %) 13 L CSF Eosinophils (%) 0 CSF Basophils (%) 0 CSF Polynuclear WBCs (0 - 7 %) 13 H CSF Macrophages (%) 0 CSF Total Protein (15 - 45 mg/dL) TNP Laboratory Tests 06/21 1054 Serology HIV 1 2 Antibody Screen (Nonreactive) Nonreactive Radiology Data: Recent Impressions: MAGNETIC RESONANCE IMAGING - MRI BRAIN WO/W CONT 06/21 0932 Report Impression - Status: SIGNED Entered: 06/21/2024 0959 IMPRESSION: Conspicuous dural and leptomeningeal enhancement, which may reflect infectious/inflammatory process. Consider correlation with cerebrospinal fluid analysis. Impression By: [email or web address] - Justin Adams M.D. Free Text Obj Notes Free Text Obj Notes: General: well nourished HEENT: NCAT, anicteric sclera, posterior pharynx clear, mucus membranes moist CV: regular rate, intact peripheral pulses Pulm: breathing comfortably, no wheezing, symmetric chest expansion Abd: soft, non-tender, non-distended Ext/Msk: skin clear, no rashes, no edema. tender to percussion over lower back but diffusely so Neurology: Mental Status: A Ox3, good concentration; normal fund of knowledge and memory Language: intact fluency, comprehension, naming, and repetition Speech: no dysarthria CN: PERRL, 2 mm BL, EOMI, no nystagmus, full VF; no facial asymmetry, facial sensation intact; auditory acuity intact; tongue midline, palate elevates symmetrically, SCM/trapezius intact Motor: AG throughout, no drift, normal tone, full ROM Sensory: intact to light touch equally on both sides, no extinction Coordination: no dysmetria on FTN or HTS bilaterally Gait: Deferred No meningismus Babinski absent No clonus DTR 2+ throughout Diagnosis, Assessment Plan Free Text DxA P Notes Free text DxA P notes: Patient is a 23 yo female with no significant PMH who presented to an OSH with ORTIZ, fever, photophobia. She underwent LP with 10-15cc removed and subsequent CTH read as showing diffuse cerebral edema. No alterations in mental status during this time. Headache is now worse when upright and low pressure/flow noted on LP here by neurosurgery. Given CSF results I would interpret her diffuse meningeal enhancement as a benign post LP finding more so than any acute infectious, neoplastic or other inflammatory process (ie neurosarcoidosis). From a neurology standpoint I would consider discontinuation of vancomycin and acyclovir. She does not need meningitic dosing of rocephin but I would defer to ICC/ID regarding need for treatment of possible UTI. CSF: RBC 418, WBC 1, Protein 30, Glucose 63 HIV neg Respiratory viral panel negative Headache, unspecified - in setting of systemic infection Possible post dural puncture headache Meningeal enhancement - likely benign post LP given neurologic exam and LP findings possible UTI chronic constipation - I will defer adding additional inflammatory w/u to CSF given limited volume though I agree with WNV testing if possible - consider deescalation of abx/antiviral therapy and monitor for 24-36hrs - fioricet PRN, continue IVF. Caffeine intake encouraged - I am unable to view her outside CTH which was concerning for cerebral edema. However, given her MRI here it is possible this was just an overread which is possible in young females given lack of developing age related atrophy. - if headache remains positional without resolution and cx remain negative, consider blood patch - MRI brain w/wo contrast in 2-4 weeks given additional subacute symptoms - ESR/CRP, CK given reports of longer standing fatigue, arthralgias - TSH wnl - bowel regimen with miralax qd, increasing to bid if no improvement. Discussed with Mandy Almaguer NP. at 0873 [facility] #:[id number] END OF REPORT [facility] 2024-06-21 18:28:00 [id number] [address] PATIENT NAME: JOJO HUBBARD ADMIT DATE: 06/20/24 ACCOUNT NO: [id number] ROOM NO: [facility] AGE: 23 REPORT TYPE: OPERATIVE REPORT SEX: F ADMITTING PHYSICIAN:Cirilo Ivy MD ATTENDING PHYSICIAN:Cirilo Ivy MD OPERATION DATE: 06/21/2024 PREOPERATIVE DIAGNOSIS: Meningitis. POSTOPERATIVE DIAGNOSIS: Meningitis. PROCEDURE: Lumbar puncture utilizing local injection by the bedside. SURGEON: Santo Huang MD BOBBIN LOOSE END FINDER: None. ANESTHESIA: Local. ESTIMATED BLOOD LOSS: During the procedure none. DRAINS: None. SPECIMENS: Spinal fluid for CSF studies including Gram stain, protein, cell count, glucose, and culture and sensitivity. . COMPLICATIONS: None. DESCRIPTION OF PROCEDURE: Ms. Hubbard is a 23-year-old right-handed lady who was admitted as an emergency transfer from [facility] for higher level of care where she presented with increasing fever and severe headache, and upon further workup including CT scan of the head was found to have generalized cerebral edema and was transferred here for further workup. MRI of the head was performed upon arrival here with and without contrast, which shows definite evidence of leptomeningeal enhancement suggesting of meningitis/meningism of unknown origin. Due to potential for infectious origin, a decision for lumbar puncture was taken and patient was sent down to radiology where the patient had an unsuccessful lumbar puncture tap. To avoid further delay for the lumbar puncture and further sending the patient down to Radiology, decision was taken by me to perform the lumbar puncture myself in the intensive care unit. The patient was consented for the procedure and the patient was placed in a position with both the legs and neck flexed. The area of proposed surgical incision on the lower back was prepped and draped in an usual fashion utilizing chlorhexidine solution for 10 minutes. The area of incision over the L4-L5 interspace was infiltrated with 1% lidocaine for a total volume of 2 mL and a lumbar puncture needle was passed in the L4-L5 interspace superiorly and the thecal sac was accessed. The opening pressure of the CSF was very low, probably around 2-3 cm and there was a few drops of fluid that was seen coming PATIENT NAME: JOJO HUBBARD out spontaneously and connected in a sterile fashion. After about 3 mL of fluid was collected in 3 separate tubes, the lumbar puncture needle was withdrawn. The patient tolerated the procedure without any problems and the area of puncture was covered with a Band-Aid, and the patient was positioned back to the supine position. Dictated By: Santo Huang MD Date Dictated: 06/21/2024 18:28:58 Date Transcribed: 06/21/2024 22:55:05 SG/PAP Receipt ID: [id number] Authenticated by Santo Huang MD On 06/23/2024 05:52:54 PM at 0552 PATIENT NAME: JOJO HUBBARD [facility] 2024-06-21 14:56:00 [facility] ([facility]) Clinical Note REPORT#:[id number] REPORT STATUS: Signed REPORT INITIALIZATION DATE:06/21/24 TIME: 1456 PATIENT: JOJO HUBBARD UNIT #: [id number] ROOM/BED: [place] [address] : 00 AGE: 23 SEX: F ATTEND: Cirilo Ivy MD ADM AUTHOR: Tim Stover REPT SERVICE DT/TIME: 06/21/24 1456 * ALL edits or amendments must be made on the electronic/computer document * Clinical Note Note: Lumbar puncture was attempted in interventional radiology suite. the L3-L4 level was targeted. The spinal canal was accessed by the needle, but no CSF was obtained. Patient discomfort (despite local anes and 50 mcg fentanyl given IV periprocedurally) led to aborting the procedure. Nurse and ordering [employer] CHAIR was informed. Patient left room in good condition. at 1502 RPT #:[id number] END OF REPORT [facility] 2024-06-21 13:18:00 [facility] ([facility]) Infect Disease Consult Note REPORT#:[id number] REPORT STATUS: Signed REPORT INITIALIZATION DATE:06/21/24 TIME: 1318 PATIENT: JOJO HUBBARD UNIT #: [id number] ROOM/BED: [facility]21-1 : 00 AGE: 23 SEX: F ATTEND: Cirilo Ivy MD ADM AUTHOR: Mauro George MD REPT SERVICE DT/TIME: 06/21/24 1318 * ALL edits or amendments must be made on the electronic/computer document * History of Present Illness Requesting Clinician: Agnieszka Almaguer NP Reason for consult: Fever Chief complaint: headache HPI: This is a 23-year-old female patient with history of recurrent UTIs and headaches associated with UTI who was transferred from [facility] where she had presented with high fevers and severe headache. CT showed cerebral edema The headaches were described as bilateral frontal headache that increased with sitting up and bending over and increase in lying down, associated with light sensitivity chest tightness shortness of breath and bodyaches. She had an LP which was inconclusive Her urinalysis showed some pyuria and bacteria and she was transferred here for further care She has 2 children who are 8 months and 5 years old They have no current symptoms There is no history of recent travel or sick contacts History - Adult longitudinal Additional medical history: Medically free. Past surgical history: Reports: . Additional surgical history: C/S 8 months ago. Additional family history: Gradfather/ uncle - HTN, DM, Cardiac disease. Mother - Migraine. Alcohol use: Denies EtOH use Drug use: Denies recreational drugs Smoking status for patients 13 years old or older: Current every day smoker ( Vape) Date last smoked: 06/20/24 Additional social history: Lives with his boyfriend. Allergies: Coded Allergies: No Known Allergies (06/20/24) Ambulatory status: Independent Review of Systems Free Text ROS Notes Free Text ROS Notes: 14 systems reviewed and negative apart from pertinent points in the HPI Objective Physical Exam General appearance: alert, awake Head/Eyes: atraumatic, clear cornea, EOMI, normal conjunctiva/sclera, normal eyelids/periorb, normocephalic, PERRL ENT: normal dentition, normal nose, normal pharynx, normal sinus Neck: normal thyroid, no lymphadenopathy Cardiovascular: regular rate rhythm Respiratory: clear to auscultation, no distress Abdomen: non-tender, soft, no distention, no guarding, no mass/organomegaly, no rebound Extremities: moves all, no edema Results Findings/Data: Laboratory Tests 06/21 1054 1054 0002 Chemistry Sodium (134 - 147 mEq/L) 133 L Potassium (3.4 - 5.0 mEq/L) 3.9 Chloride (100 - 108 mEq/L) 106 Carbon Dioxide (21 - 33 mEq/l) 24 Anion Gap (0 - 20) 7 BUN (7 - 25 mg/dL) 8 Creatinine (0.6 - 1.3 mg/dL) 0.7 Glomerular Filtr Rate (110 - 120) 124.6 H Glucose (77 - 141 mg/dL) 109 Lactic Acid (0.4 - 1.9 mmol/L) 0.8 Calcium (8.0 - 10.5 mg/dL) 8.7 Ionized Calcium Pratibha (1.09 - 1.30 MMOL/L) 1.12 1.12 Phosphorus (2.5 - 4.9 MG/DL) 1.9 L Magnesium (1.6 - 2.6 mg/dL) 1.78 Total Bilirubin (0.0 - 1.0 mg/dL) 0.40 AST (8 - 34 IUnit/L) 16 ALT (10 - 49 IUnit/L) 11 Total Alk Phosphatase (20 - 125 IUnit/L) 75 Ammonia (11 - 35 umol/L) 11 Troponin I High Sens (0 - 34 ng/L) < 3 Total Protein (6.4 - 8.2 g/dL) 6.5 Albumin (3.4 - 5.0 g/dL) 3.10 L TSH (0.42 - 5.47) 1.28 Laboratory Tests 06/21 1054 Coagulation INR (0.8 - 1.2) 1.5 H PTT (Slope) (25.0 - 39.5 Seconds) 34.3 PT Patient/Control Mix (9.3 - 12.9 SECONDS) 16.1 H Laboratory Tests 06/21 1054 Hematology WBC (4.5 - 11.0 x10 3/uL) 10.7 RBC (3.54 - 5.02 x10 6/uL) 3.31 L Hgb (11.0 - 15.0 g/dL) 9.9 L Hct (33.0 - 45.0 %) 30.9 L MCV (81.0 - 99.0 fL) 93.4 MCH (27.0 - 33.0 pg) 29.9 MCHC (33.0 - 37.0 g/dL) 32.0 L RDW (11.5 - 14.5 %) 13.2 Plt Count (150 - 400 x10 3/uL) 155 MPV (7.0 - 9.0 fL) 11.8 H Neut % (Auto) (56.0 - 77.0 %) 80.4 H Lymph % (Auto) (14.0 - 32.0 %) 11.4 L Mckenzie % (Auto) (4.8 - 9.0 %) 7.7 Eos % (Auto) (0.3 - 3.7 %) 0.0 L Baso % (Auto) (0.0 - 2.0 %) 0.2 Neut # (Auto) (2.0 - 7.6 x10 3/uL) 8.61 H Lymph # (Auto) (1.0 - 3.8 x10 3/uL) 1.22 Mckenzie # (Auto) (0.1 - 0.8 x10 3/uL) 0.83 H Eos # (Auto) (0.0 - 0.2 x10 3/uL) 0.00 Baso # (Auto) (0.0 - 0.2 x10 3/uL) 0.02 Abs Immat Gran (auto) (0.00 - 0.03 x10 3/uL) 0.03 Immature Gran % (0.0 - 2.0 %) 0.3 Nucleated RBC % (0 - 0 %) 0.0 Nucleated RBCs # (Man) (0.0 - 0.1 x10 3/uL) 0.00 Laboratory Tests 06/21 06/21 06/20 1054 0002 2104 Serology Adenovirus (PCR) (Negative) Negative Bordetella holmesii PCR (Negative) Negative B. pertussis DNA (PCR) (Negative) Negative B.parapertussis DNA PCR (Negative) Negative HIV 1 2 Antibody Screen (Nonreactive) Nonreactive Human Metapneumovir PCR (Negative) Negative Influenza A (H1) PCR (Negative) Negative Influenza A (H3) PCR (Negative) Negative Influenza Type A (PCR) (Negative) Negative Influenza Type B (PCR) (Negative) Negative Parainfluenza 1 (PCR) (Negative) Negative Parainfluenza 2 (PCR) (Negative) Negative Parainfluenza 3 (PCR) (Negative) Negative Parainfluenza 4 (PCR) (Negative) Negative RSV Alpha (Negative) Negative RSV Beta (Negative) Negative Rhinovirus (PCR) (Negative) Negative SARS-CoV-2 Ag (Rapid) (Negative) Negative Serology Comments (Comment) RVP Comment Laboratory Tests 06/21 011 Urines Urine Color (YEL/STRAW) DAYDAY H Urine Appearance (CLEAR) SL CLOUDY Urine pH (5.0 - 7.0) 5.0 Ur Specific Wittman (1.005 - 1.030) 1.028 Urine Protein (NEGATIVE) 2+ H Urine Glucose (UA) (NEGATIVE) NEGATIVE Urine Ketones (NEGATIVE) 2+ H Urine Blood (NEGATIVE) NEGATIVE Urine Nitrite (NEGATIVE) NEGATIVE Urine Bilirubin (NEGATIVE) NEGATIVE Urine Urobilinogen (0.2 - 1.0 mg/dL) 0.2 Ur Leukocyte Esterase (NEGATIVE) NEGATIVE Urine RBC (0 - 3 RBC/HPF) 4-10 Urine WBC (0 - 3 WBC/HPF) 4-9 H Ur Squamous Epith Cells (NONE SEEN /HPF) 0-5 Urine Bacteria (NONE SEEN /HPF) NONE SEEN Urine Mucus (NONE SEEN /LPF) 4+ H Microbiology Date/Time Procedure - Status Source Growth 06/20 2325 MRSA DNA Surveillance Screen - COMP NASAL Diagnosis, Assessment Plan Free Text DxA P Notes Free text DxA P notes: 1-high fevers with intractable headache with MRI showing dural and leptomeningeal enhancement Rule out bacterial or viral encephalitis or autoimmune encephalitis 2-UTI versus asymptomatic bacteriuria Recommendations Will start empiric treatment for meningitis and encephalitis The LP at [facility] was inconclusive Respiratory viral panel was negative We will repeat lumbar puncture Follow culture data and clinical response at 1323 RPT #:[id number] END OF REPORT [facility] 2024-06-21 12:36:00 [facility] ([facility]) Pharmacy Prog.Note-Vancomycin REPORT#:[id number] REPORT STATUS: Signed REPORT INITIALIZATION DATE:06/21/24 TIME: 1236 PATIENT: JOJO HUBBARD UNIT #: [id number] ROOM/BED: [place] [address] : 00 AGE: 23 SEX: F ATTEND: Cirilo Iyv MD ADM AUTHOR: Tobias Clement [facility] REPT SERVICE DT/TIME: 06/21/24 1236 * ALL edits or amendments must be made on the electronic/computer document * Vancomycin Vancomycin Medication Therapy Goal: trough 18 mcg/mL Indication for treatment: [employer] infection Weight: Actual weight (kg): 63.9 VS and I/O: Vital Signs Date Temp Pulse Resp B/P B/P Mean Pulse Ox FiO2 06/20-06/21 37.2-39.4 81-112 14-28 100-131/52-77 72-96 96-100 72 hours ending at 0700 06/21 0700 06/20 1900 06/20 0706/19 1900 06/19 06/18 0700 1900 Intake 665.00 Total Output 100 Total Balance 565.00 Intake, IV 665.00 Number 1 Voids Output, 100 Urine Patient 63.9 kg Weight Weight Bed scale Measuremen t Method 72 Hour I O Total 06/21 0706/20 0700 06/19 0700 Intake Total 665.00 Output Total 100 Balance 565.00 Labs: Laboratory Test : 06/21 1054 Chemistry BUN (7 - 25 mg/dL) 8 Creatinine (0.6 - 1.3 mg/dL) 0.7 Hematology WBC (4.5 - 11.0 x10 3/uL) 10.7 Microbiology: 06/21 1031 CSF: Fungal Smear - ORD 06/21 1031 CSF: Fungal Culture - ORD 06/21 1031 CSF: Body Fluid Culture - ORD 06/21 1031 CSF: Anaerobic Culture - ORD 06/21 1031 CSF: Gram Stain - ORD 06/21 0301 Blood: Blood Culture - RECD 06/21 0301 Blood: Blood Culture Gram Stain - RECD 06/21 0230 NASAL: MRSA DNA Surveillance Screen - ORD 06/20 2325 NASAL: MRSA DNA Surveillance Screen - COMP Treatment plan: consult, initiation of therapy Regimen: HPI: Jojo Hubbard is a 23 yo female with no PMH who transferred from [facility] after originally presenting with fever, chills, bilateral frontal headache, light sensitivity, chest tightness, SOB, lightheadedness and body aches that did not improve with APAP or NSAID. Patient was found to have cerebral edema on CT at [facility] and transferred to [facility] for neurosurgery evaluation. Patient was started on antibiotics for possible [employer] infection, pharmacy is consulted to dose vancomycin. Requesting Provider: Mauro George MD Indication: [employer] infection Vancomycin Trough Goal: 18 mcg/mL Concomitant Antimicrobials: -Acyclovir 650 mg IV q8h -Ceftriaxone 2 g IV q12h 06/21 A/P: Labs and Vitals: WBC 10.7 Febrile with a Tmax of 39.4C over the past 24 hours Patient is HDS Renal Function: BUN/SCr 8/0.7 (stable) Urine Output with 100 mL and one unquantified void documented so far this admission Calculated CrCl 107 mL/min (AdjBW) Microbiology: 06/21 Blood Cx: Pending 06/21 CSF fluid analysis: Ordered 06/20 MRSA nasal screen: Negative Imagin/29 MRI brain: Conspicuous dural and leptomeningeal enhancement which may reflect infectious/inflammatory process Dosing and Monitoring: -At outside facility patient received 2000 mg of vancomycin at around 1500 yesterday ( 32 mg/kg) -Considering indication, apparent renal function, and clinical condition, will start a maintenance regimen of vancomycin 1000 mg q8h ( 16 mg/kg) -Will plan to check a level at steady state Pharmacy will continue to monitor Thank you for this consult at 1237 RPT #:[id number] END OF REPORT [facility] 2024-06-21 09:54:00 [facility] ([facility]) Critical Care Progress Note REPORT#:[id number] REPORT STATUS: Signed REPORT INITIALIZATION DATE:06/21/24 TIME: 953 PATIENT: JOJO HUBBARD UNIT #: [id number] ROOM/BED: [facility] : 00 AGE: 23 SEX: F ATTEND: Cirilo Ivy MD ADM AUTHOR: Agnieszka Almaguer NP REPT SERVICE DT/TIME: 06/21/24 0954 * ALL edits or amendments must be made on the electronic/computer document * Subjective Chief complaint: Fever HPI: 23-year-old female with no significant past medical history transferred from [facility] due to CT findings significant for cerebral edema. Patient was at [facility] when she suddenly developed fever (103) 1 day assciated with chills, bilateral frontal headache that increase with sitting up and bending over, light sensitivity, chest tightness, SOB, lightheadedness and body aches. She took tylenol and Ibuprofen which did not improve her symptoms. Denies nausea/ vomiting, cough, sorethroat, diarrhea, neck stiffness, dysuria, skin rashes, weakness, no numbness. Denies use of illicit drugs, meds, herbs, new beauty products. She was in the [facility] last March, no pets, no sick-contacts. She had a C/S 8 months ago, currently . Family history of migraine in her mother and grandmother. 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 At [facility], she had an LP for suspected meningitis which came back negative, UA showed UTI likely a contaminated sample (epithelial >10), she was given rocophin and vancomycin. 06/21/2024 Patient underwent MRI which revealed conspicuous dural and left leptomeningeal enhancement which may reflect infectious/inflammatory process. CSF obtained per repeat LP. ID was consulted and patient has been started on [employer] coverage including bank/acyclovir/ceftriaxone. No neurosurgical recs at this time. Continue supportive care. She is full code. Continue ICU and monitor neurochecks every hour. Full code Review of Systems All systems rev neg: except as marked Objective General VS/I O Last Documented: Result Date Time Pulse Ox 100 06/21 0600 B/P 100/62 06/21 0600 B/P Mean 75 06/21 0600 Pulse 93 06/21 0600 Resp 23 06/21 0600 Temp 100.7 06/21 0501 O2 Delivery Room air 06/20 1954 24 hour I O ending at 0700: 06/21 0700 06/20 1900 Intake Total 665.00 Output Total 100 Balance 565.00 Intake, IV 665.00 Number Voids 1 Output, Urine 100 Patient 63.9 kg Weight Weight Bed scale Measurement Method PATIENT WEIGHT: Weight (lb): 140 Weight (oz): 14.01 Weight (kg): 63.900 Medications: Active Meds + DC'd Last 24 Hrs Mupirocin (BACTROBAN 2% 22 GM OINTMENT) 1 APPLIC BID NASAL (UNV) Ceftriaxone Sodium (ROCEPHIN 1000MG VIAL) 1,000 MG Q24H IV Sodium Chloride (SODIUM CHLORIDE) 10 ML Gadoterate Meglumine (DOTAREM) 13 ML .STK-MED ONE IV (DC) Enoxaparin Sodium (lovENOX) 40 MG Q24H SUBQ Polyethylene Glycol (MIRALAX) 17 GM DAILY PO Acetaminophen (TYLENOL) 650 MG Q4H PRN PRN PO Parenteral Electrolytes (PLASMA-LYTE A pH 7.4) 1,000 ML .Q8H IV Acetaminophen (TYLENOL) 325 MG Q4H PRN PRN PO (DC) Ketorolac Tromethamine (TORADOL) 15 MG X1ED STA IV (DC) Metoclopramide HCl (REGLAN) 10 MG X1ED STA IV (DC) Ondansetron HCl (ZOFRAN) 4 MG X1ED STA IV (DC) Sodium Chloride (SODIUM CHLORIDE 0.9%) 1,000 ML X1ED STA IV (DC) Lidocaine (Lidocaine 4% Patch) 1 PATCH ONCE ONE TOPICAL (CAN) Ketorolac Tromethamine (TORADOL) 15 MG X1ED STA IV (CAN) Physical Exam Head/eyes: atraumatic, clear cornea, EOMI, PERRLA Neck: non-tender, no bruit/NL carotids, no JVD, no masses or swelling Cardiovascular: normal capillary refill, normal heart sounds, regular rate and rhythm Respiratory: aerating well, clear to auscultation, symmetric expansion Abdomen: soft, non-tender, normal bowel sounds, lower c/s scar. Extremities: moves all, no clubbing, no cyanosis, no edema, Tattoo in her left chest and left forearm. Neuro/[employer]: alert, oriented X 3, CNII-XII intact, normal speech, no motor deficits, no sensory deficits Skin: intact, normal color, normal temperature, no rash Lymphatics: neck normal Psychiatry: normal affect, normal judgment/insight, normal mood Results Findings/data: Laboratory Tests 06/21 0002 Chemistry Ionized Calcium Pratibha (1.09 - 1.30 MMOL/L) 1.12 Laboratory Tests 06/21 2104 Serology Adenovirus (PCR) (Negative) Negative Bordetella holmesii PCR (Negative) Negative B. pertussis DNA (PCR) (Negative) Negative B.parapertussis DNA PCR (Negative) Negative Human Metapneumovir PCR (Negative) Negative Influenza A (H1) PCR (Negative) Negative Influenza A (H3) PCR (Negative) Negative Influenza Type A (PCR) (Negative) Negative Influenza Type B (PCR) (Negative) Negative Parainfluenza 1 (PCR) (Negative) Negative Parainfluenza 2 (PCR) (Negative) Negative Parainfluenza 3 (PCR) (Negative) Negative Parainfluenza 4 (PCR) (Negative) Negative RSV Alpha (Negative) Negative RSV Beta (Negative) Negative Rhinovirus (PCR) (Negative) Negative SARS-CoV-2 Ag (Rapid) (Negative) Negative Serology Comments (Comment) RVP Comment Laboratory Tests 06/21 011 Urines Urine Color (YEL/STRAW) DAYDAY H Urine Appearance (CLEAR) SL CLOUDY Urine pH (5.0 - 7.0) 5.0 Ur Specific Wittman (1.005 - 1.030) 1.028 Urine Protein (NEGATIVE) 2+ H Urine Glucose (UA) (NEGATIVE) NEGATIVE Urine Ketones (NEGATIVE) 2+ H Urine Blood (NEGATIVE) NEGATIVE Urine Nitrite (NEGATIVE) NEGATIVE Urine Bilirubin (NEGATIVE) NEGATIVE Urine Urobilinogen (0.2 - 1.0 mg/dL) 0.2 Ur Leukocyte Esterase (NEGATIVE) NEGATIVE Urine RBC (0 - 3 RBC/HPF) 4-10 Urine WBC (0 - 3 WBC/HPF) 4-9 H Ur Squamous Epith Cells (NONE SEEN /HPF) 0-5 Urine Bacteria (NONE SEEN /HPF) NONE SEEN Urine Mucus (NONE SEEN /LPF) 4+ H Microbiology: 06/21 0301 Blood: Blood Culture - RECD 06/21 0301 Blood: Blood Culture Gram Stain - RECD 06/21 0230 NASAL: MRSA DNA Surveillance Screen - ORD 06/20 8783 NASAL: MRSA DNA Surveillance Screen - RECD Results: labs reviewed, vital signs reviewed, rhythm personally rev'd, x-ray personally reviewed, current med profile rev'd Diagnosis, Assessment Plan Free text A P: 23 years old female with no significant past medical history was transferred from [facility] with fever and bi frontal headaches. CT done there showed cerebral edema. 06/21/2024 Patient underwent MRI which revealed conspicuous dural and left leptomeningeal enhancement which may reflect infectious/inflammatory process. CSF obtained per repeat LP. ID was consulted and patient has been started on [employer] coverage including bank/acyclovir/ceftriaxone. No neurosurgical recs at this time. Continue supportive care. She is full code. Continue ICU and monitor neurochecks every hour. Full code Neurology *Cerebral edema - CT done in [place] showed cerebral edema. - Brain MRI with and without contrast. - Neurocheck q2hrs. - Neuro on board - f/u recommendations. - Pain control. Infectious disease *Febrile illness - Questionable acute cystitis - UA showed elevated WBCs and +Leuko esterase - likely contaminated - Repeat UA w/ reflex - CT abd pelvis if positive. - blood cultures sent. - LP, resp viral panel, COVID, CXR normal. - Start empiric antibiotics - Rocephin 1g daily. - Tylenol for fever. Renal *Hyponatremia - Na 134. - Start IVF plasmalight. - Monitor electrolytes. Pulmonary - supplemental oxygen as needed. Cardiovascular - Monitor vitals, Keep MAP>65. Gastrointestinal - Diet as tolerated. Hematology/ Oncology - Monitor CBC. Endocrine - Monitor BS. - Prevent hypoglycemia/ hyperglycemia. GI ppx: not indicated. DVT ppx: Lovenox. Bowel regimen: Miralax. Diet: Regular. Code status: Full code. Plan of care was discussed with the attending. I have spent 42 minutes critical care time assessing, reviewing labs, medication , and imaging and discussing plan of care with critical care diamond driller, neurosurgeon at 2023 RPT #:[id number] END OF REPORT [facility] 2024-06-21 09:28:00 [facility] ([facility]) Neurosurgical Consultation REPORT#:[id number] REPORT STATUS: Signed REPORT INITIALIZATION DATE:06/21/24 TIME: 927 PATIENT: JOJO HUBBARD UNIT #: [id number] ROOM/BED: [place] [address] : 00 AGE: 23 SEX: F ATTEND: Cirilo Ivy MD ADM AUTHOR: Madison,Joneshia PANEL SAW OPERATOR REPT SERVICE DT/TIME: 06/21/24927 * ALL edits or amendments must be made on the electronic/computer document * MadisonVenkata 06/21/24927: History of Present Illness Requesting clinician: DR.ZACHARY ALARCON Reason for consult: CEREBRAL EDEMA Chief complaint: HEADACHE PCP: PCP: Undefined Provider HPI: Patient is a 23-year-old female with no significant past medical history transferred from [facility]. Patient was at work when she suddenly developed fever, chills, bilateral frontal headache that increase with sitting up and bending over, light sensitivity, chest tightness, SOB, lightheadedness and body aches. She took tylenol and Ibuprofen which did not improve her symptoms so she went to the ED to be seen. CT of the head completed at outside facility showed findings significant for cerebral edema. Neurosurgery was consulted for evaluation. History - Adult longitudinal Past surgical history: Reports: . Additional family history: Gradfather/ uncle - HTN, DM, Cardiac disease. Mother - Migraine. Alcohol use: Denies EtOH use Drug use: Denies recreational drugs Smoking status for patients 13 years old or older: Current every day smoker ( Vape) Date last smoked: 06/20/24 Additional social history: Lives with his boyfriend. Medications: Home Medications: Medication Dose/Rte/Freq Days Qty Entered Last Max Daily Dose Reviewed No Known Home Medications Current Hospital Medications: Anti-Infective Agents Sig/Dontrell Start time Last Medication Dose Route Stop Time Status Admin Ceftriaxone Sodium 1,000 MG Q24H 06/21 1530 AC (ROCEPHIN 1000MG IV 06/25 1529 VIAL) Sodium Chloride 10 ML (SODIUM CHLORIDE) Blood Formation,Coagulation Sig/Dontrell Start time Last Medication Dose Route Stop Time Status Admin Enoxaparin Sodium 40 MG Q24H 06/21 0900 AC (lovENOX) SUBQ 09/19 0859 Central Nervous System Agents Sig/Dontrell Start time Last Medication Dose Route Stop Time Status Admin Acetaminophen 650 MG Q4H PRN PRN 06/21 0430 AC (TYLENOL) PO 09/19 0421 Acetaminophen 325 MG Q4H PRN PRN 06/21 0230 DC 06/21 (TYLENOL) PO 09/19 229 0336 Ketorolac 15 MG X1ED STA 06/204 DC 06/20 Tromethamine IV 06/20 (TORADOL) Ketorolac 15 MG X1ED STA 06/20 2018 CAN Tromethamine IV 06/20 2019 (TORADOL) Diagnostic Agents Sig/Dontrell Start time Last Medication Dose Route Stop Time Status Admin Gadoterate Meglumine 13 ML .STK-MED ONE 06/21 09 DC 06/21 (DOTAREM) IV 06/21 0934 0933 Electrolytic, Caloric, And [place] Sig/Dontrell Start time Last Medication Dose Route Stop Time Status Admin Parenteral 1,000 ML .Q8H 06/21 0245 AC 06/21 Electrolytes IV 09/194 0246 (PLASMA-LYTE A pH 7.4) Sodium Chloride 1,000 ML X1ED STA 06/20 2034 DC 06/20 (SODIUM CHLORIDE IV 06/20 0.9%) Gastrointestinal Drugs Sig/Dontrell Start time Last Medication Dose Route Stop Time Status Admin Polyethylene Glycol 17 GM DAILY 06/21 0900 AC (MIRALAX) PO 09/19 0859 Metoclopramide HCl 10 MG X1ED STA 06/20 2034 DC 06/20 (REGLAN) IV 06/20 Ondansetron HCl 4 MG X1ED STA 06/20 2034 DC 06/20 (ZOFRAN) IV 06/20 Local Anesthetics (Parenteral) Sig/Dontrell Start time Last Medication Dose Route Stop Time Status Admin Lidocaine 1 PATCH ONCE ONE 06/20 2030 CAN (Lidocaine 4% Patch) TOPICAL 06/20 2031 Allergies: Coded Allergies: No Known Allergies (06/20/24) Immunization status: General Unknown Pt reports no significant: past medical history Ambulatory status: Independent Review of Systems ROS Constitutional: Reports chills, Reports fatigue, Reports lethargy, Reports malaise, Denies fever Eyes: Reports: photophobia. Denies: diplopia. Respiratory: Denies: BANERJEE (dyspnea on exertion), SOB, wheezing. Cardiovascular: Denies: chest pain, BANERJEE (dyspnea on exertion). GI: Denies: abdominal pain, nausea, vomiting. Neuro: Reports: headache. Denies: change in LOC, confusion, dizziness, gait problem, lightheaded, seizure, slurred speech, syncope. Objective VS/I O: Last Documented: Result Date Time Pulse Ox 100 06/21 0600 B/P 100/62 06/21 06 B/P Mean 75 06/21 06 Pulse 93 06/21 0600 Resp 23 06/21 06 Temp 100.7 06/21 0501 O2 Delivery Room air 06/20 1954 24 hour I O ending at 0700: 06/21 0700 06/20 1900 Intake Total 665.00 Output Total 100 Balance 565.00 Intake, IV 665.00 Number Voids 1 Output, Urine 100 Patient 63.9 kg Weight Weight Bed scale Measurement Method PATIENT WEIGHT: Weight (lb): 140 Weight (oz): 14.01 Weight (kg): 63.900 General appearance: alert, awake, oriented, no acute distress, pleasant, conversational Head/Eyes: atraumatic, clear cornea, EOMI, normocephalic Neck: full range of motion Cardiovascular: regular rate rhythm, normal heart sounds, BP/pulses equal bilat. Respiratory: no distress, no tenderness, aerating well, symmetric expansion Abdomen: non-tender, soft Extremities: moves all Musculoskeletal: full range of motion Neuro/[employer]: alert, oriented X 3, no motor deficits, no sensory deficits, GCS 15. MOVES ALL EXTREMITIES. NO PRONATOR DRIFT NOTED. Speech Speech: normal Mental Status LOC: alert Cognitive Function Cognitive function: normal executive function Results Findings/Data: Laboratory Tests: 06/21 06/21 06/20 0112 0002 2104 Chemistry Ionized Calcium Pratibha (1.09 - 1.30 MMOL/L) 1.12 Serology Adenovirus (PCR) (Negative) Negative Bordetella holmesii PCR (Negative) Negative B. pertussis DNA (PCR) (Negative) Negative B.parapertussis DNA PCR (Negative) Negative Human Metapneumovir PCR (Negative) Negative Influenza A (H1) PCR (Negative) Negative Influenza A (H3) PCR (Negative) Negative Influenza Type A (PCR) (Negative) Negative Influenza Type B (PCR) (Negative) Negative Parainfluenza 1 (PCR) (Negative) Negative Parainfluenza 2 (PCR) (Negative) Negative Parainfluenza 3 (PCR) (Negative) Negative Parainfluenza 4 (PCR) (Negative) Negative RSV Alpha (Negative) Negative RSV Beta (Negative) Negative Rhinovirus (PCR) (Negative) Negative SARS-CoV-2 Ag (Rapid) (Negative) Negative Serology Comments (Comment) RVP Comment Urines Urine Color (YEL/STRAW) DAYDAY H Urine Appearance (CLEAR) SL CLOUDY Urine pH (5.0 - 7.0) 5.0 Ur Specific Wittman (1.005 - 1.030) 1.028 Urine Protein (NEGATIVE) 2+ H Urine Glucose (UA) (NEGATIVE) NEGATIVE Urine Ketones (NEGATIVE) 2+ H Urine Blood (NEGATIVE) NEGATIVE Urine Nitrite (NEGATIVE) NEGATIVE Urine Bilirubin (NEGATIVE) NEGATIVE Urine Urobilinogen (0.2 - 1.0 mg/dL) 0.2 Ur Leukocyte Esterase (NEGATIVE) NEGATIVE Urine RBC (0 - 3 RBC/HPF) 4-10 Urine WBC (0 - 3 WBC/HPF) 4-9 H Ur Squamous Epith Cells (NONE SEEN /HPF) 0-5 Urine Bacteria (NONE SEEN /HPF) NONE SEEN Urine Mucus (NONE SEEN /LPF) 4+ H Microbiology: Date/Time Procedure - Status Source Growth 06/21 0301 Blood Culture - RECD Blood 06/21 0301 Blood Culture Gram Stain - RECD Blood 06/21 0230 MRSA DNA Surveillance Screen - ORD NASAL 06/20 2325 MRSA DNA Surveillance Screen - RECD NASAL Results: CT results reviewed Neurosurgical Scores Ayesha Ayesha Coma Score: Copyright Geddit Rajeev [place] Copyright [facility] Chloe Eye opening: (4) Spontaneous Verbal response: (5) Oriented Best motor response: (6) Obeys commands GCS Score: 15 Diagnosis, Assessment Plan Problem List/A P: 1. Cerebral edema Free Text A P: Patient examined with, imaging reviewed with and plan of care formulated by Dr. Huang Patient is a 23-year-old female with no significant past medical history transferred from [facility]. Patient was at work when she suddenly developed fever, chills, bilateral frontal headache that increase with sitting up and bending over, light sensitivity, chest tightness, SOB, lightheadedness and body aches. She took tylenol and Ibuprofen which did not improve her symptoms so she went to the ED to be seen. CT of the head completed at outside facility showed findings significant for cerebral edema. Lumbar puncture completed at outside facility was negative for meningitis. Neurosurgery was consulted for evaluation. -MRI brain w/wo contrast pending -Repeat lumbar puncture performed at bedside by Dr. Huang -Neuro checks q1h -Keep SBP 100-140 -Avoid hyponatremia, NA +136 -Keep Mag 1.8-2.4 -Pain control -Pt does not need PT/OT at this time -Bowel regimen -Neuro Data Compiler following -Critical care following -Will follow along for pending MRI results, will anticipate signing off if MRI shows no evidence of underlying mass or bleed. Please call NSGY on-call for any neurological concerns or changes in neuro status. CARMEN distinctive service time: 49 minutes. CARMEN and Physician shared Service Time: 10 minutes discussing diagnosis, exam and plan of care. Santo Huang 06/21/24 1912: Diagnosis, Assessment Plan Free Text A P: Agree with above, patient was evaluted in ICU wioth print line inspector, RN and [facility] CRIMINAL JUSTICE DEPARTMENT CHAIR by the bedside. 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 Due to failed attmpt of LP by Radiology, I have performed the LP myself by the bedside with patient's consent to hasten the process of acheiving prope diagnosis from ID standpoiont. Slightly cloudy CSF was sent for appropriates studies. There is no further role for neurosurgical involvement for this patient at this time. Will standby, please call prn. at 1916 at [phone] RPT #:[id number] END OF REPORT [facility] 2024-06-20 23:36:00 [facility] ([facility]) Critical Care Consult Note REPORT#:[id number] REPORT STATUS: Signed REPORT INITIALIZATION DATE:06/20/24 TIME: 2335 PATIENT: JOJO HUBBARD UNIT #: [id number] ROOM/BED: [place] [address] : 00 AGE: 23 SEX: F ATTEND: Cirilo Ivy MD ADM AUTHOR: Zak Alicea MD R1 REPT SERVICE DT/TIME: 06/20/242335 * ALL edits or amendments must be made on the electronic/computer document * Zak Alicea 06/20/242335: History of Present Illness HPI Chief complaint: Fever PCP: PCP: Undefined Provider HPI: 23-year-old female with no significant past medical history transferred from [facility] due to CT findings significant for cerebral edema. Patient was at [facility] when she suddenly developed fever (103) 1 day assciated with chills, bilateral frontal headache that increase with sitting up and bending over, light sensitivity, chest tightness, SOB, lightheadedness and body aches. She took tylenol and Ibuprofen which did not improve her symptoms. Denies nausea/ vomiting, cough, sorethroat, diarrhea, neck stiffness, dysuria, skin rashes, weakness, no numbness. Denies use of illicit drugs, meds, herbs, new beauty products. She was in the [facility] last March, no pets, no sick-contacts. She had a C/S 8 months ago, currently . Family history of migraine in her mother and grandmother. 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 At [facility], she had an LP for suspected meningitis which came back negative, UA showed UTI likely a contaminated sample (epithelial >10), she was given rocophin and vancomycin. Hx Obtained From Patient History - Adult longitudinal Additional medical history: Medically free. Additional surgical history: C/S 8 months ago. Additional family history: Gradfather/ uncle - HTN, DM, Cardiac disease. Mother - Migraine. Alcohol use: Denies EtOH use Drug use: Denies recreational drugs Smoking status for patients 13 years old or older: Current every day smoker ( Vape) Date last smoked: 06/20/24 Additional social history: Lives with his boyfriend. Allergies: Coded Allergies: No Known Allergies (06/20/24) Review of Systems ROS Constitutional: Reports: chills, fever. Denies: fatigue, generalized weakness, lethargy, malaise, recent wt loss, other. Eyes: Reports: visual loss/blurred, photophobia. Denies: redness, discharge, itching, diplopia, eye pain, swelling, other. ENT: Denies: ear drainage, ear ringing, earache, hearing loss, mouth pain, nasal congestion, nose bleeding, sinus problem, sore throat, throat pain, throat swelling, tongue pain, tongue swelling, toothache, voice change, other. Respiratory: Denies: hemoptysis, non productive cough, parox nocturnal dyspnea, pleurisy, pleuritic pain, pneumonia, productive cough (sputum), wheezing. Cardiovascular: Denies: BANERJEE (dyspnea on exertion), edema, orthopnea, palpitations, parox nocturnal dyspnea. GI: Reports: constipation (chronic). Denies: abdominal pain, anorexia, diarrhea, dysphagia, GERD, hematemesis, hematochezia, hiatal hernia, melena, nausea, rectal pain, vomiting, other. : Reports: other (last period 2 days ago.). Denies: dysuria, flank pain, frequency, hematuria, nocturia, pelvic pain, , urgency, urinary retention, vaginal bleeding, vaginal discharge. Heme: Denies: adenopathy, bleeding, bruising, petechiae, other. Neuro: Reports: headache, lightheaded. Denies: bladder dysfunction, bowel dysfunction, change in LOC, confusion, dizziness, focal weakness, gait problem, numbness, seizure, slurred speech, spinning sensation, syncope, unable to speak, vision change, weakness, other. All systems rev neg: except as marked Objective Physical Exam VS/I O: Last Documented: Result Date Time Pulse Ox 98 06/21 020 B/P 102/52 06/21 0200 B/P Mean 72 06/21 0200 Pulse 96 06/21 0200 Resp 24 06/21 020 Temp 39.4 06/21 0015 O2 Delivery Room air 06/204 24 hour I O ending at 0700: 06/21 0700 06/20 1900 Intake Total Output Total Balance Patient 63.9 kg Weight Weight Bed scale Measurement Method Patient Weight and BMI Weight (kg): 63.900 BMI: 26.6 Medications: Active Meds + DC'd Last 24 Hrs Ceftriaxone Sodium (ROCEPHIN 1000MG VIAL) 1,000 MG Q24H IV Sodium Chloride (SODIUM CHLORIDE) 10 ML Polyethylene Glycol (MIRALAX) 17 GM DAILY PO Enoxaparin Sodium (lovENOX) 40 MG Q24H SUBQ (PEND) Parenteral Electrolytes (PLASMA-LYTE A pH 7.4) 1,000 ML .Q8H IV Acetaminophen (TYLENOL) 325 MG Q4H PRN PRN PO Ketorolac Tromethamine (TORADOL) 15 MG X1ED STA IV (DC) Metoclopramide HCl (REGLAN) 10 MG X1ED STA IV (DC) Ondansetron HCl (ZOFRAN) 4 MG X1ED STA IV (DC) Sodium Chloride (SODIUM CHLORIDE 0.9%) 1,000 ML X1ED STA IV (DC) Lidocaine (Lidocaine 4% Patch) 1 PATCH ONCE ONE TOPICAL (CAN) Ketorolac Tromethamine (TORADOL) 15 MG X1ED STA IV (CAN) Head/Eyes: atraumatic, clear cornea, EOMI, PERRLA Neck: non-tender, no bruit/NL carotids, no JVD, no masses or swelling Cardiovascular: normal capillary refill, normal heart sounds, regular rate and rhythm Respiratory: aerating well, clear to auscultation, symmetric expansion Abdomen: soft, non-tender, normal bowel sounds, lower c/s scar. Extremities: moves all, no clubbing, no cyanosis, no edema, Tattoo in her left chest and left forearm. Neuro/[employer]: alert, oriented X 3, CNII-XII intact, normal speech, no motor deficits, no sensory deficits Skin: intact, normal color, normal temperature, no rash Lymphatics: neck normal Psychiatry: normal affect, normal judgment/insight, normal mood Results Findings/Data: Laboratory Tests 06/21 0002 Chemistry Ionized Calcium Pratibha (1.09 - 1.30 MMOL/L) 1.12 Laboratory Tests 06/20 2104 Serology SARS-CoV-2 Ag (Rapid) (Negative) Negative Laboratory Tests 06/21 112 Urines Urine Color (YEL/STRAW) DAYDAY H Urine Appearance (CLEAR) SL CLOUDY Urine pH (5.0 - 7.0) 5.0 Ur Specific Wittman (1.005 - 1.030) 1.028 Urine Protein (NEGATIVE) 2+ H Urine Glucose (UA) (NEGATIVE) NEGATIVE Urine Ketones (NEGATIVE) 2+ H Urine Blood (NEGATIVE) NEGATIVE Urine Nitrite (NEGATIVE) NEGATIVE Urine Bilirubin (NEGATIVE) NEGATIVE Urine Urobilinogen (0.2 - 1.0 mg/dL) 0.2 Ur Leukocyte Esterase (NEGATIVE) NEGATIVE Urine RBC (0 - 3 RBC/HPF) 4-10 Urine WBC (0 - 3 WBC/HPF) 4-9 H Ur Squamous Epith Cells (NONE SEEN /HPF) 0-5 Urine Bacteria (NONE SEEN /HPF) NONE SEEN Urine Mucus (NONE SEEN /LPF) 4+ H Microbiology: 06/21 030 Blood: Blood Culture - RECD 06/21 0301 Blood: Blood Culture Gram Stain - RECD 06/21 0230 NASAL: MRSA DNA Surveillance Screen - ORD 06/20 2325 NASAL: MRSA DNA Surveillance Screen - RECD Diagnosis, Assessment Plan Free text DxA P: 23 years old female with no significant past medical history was transferred from [facility] with fever and bi frontal headaches. CT done there showed cerebral edema. Neurology *Cerebral edema - CT done in [place] showed cerebral edema. - Brain MRI with and without contrast. - Neurocheck q2hrs. - Neuro on board - f/u recommendations. - Pain control. Infectious disease *Febrile illness - Questionable acute cystitis - UA showed elevated WBCs and +Leuko esterase - likely contaminated - Repeat UA w/ reflex - CT abd pelvis if positive. - blood cultures sent. - LP, resp viral panel, COVID, CXR normal. - Start empiric antibiotics - Rocephin 1g daily. - Tylenol for fever. Renal *Hyponatremia - Na 134. - Start IVF plasmalight. - Monitor electrolytes. Pulmonary - supplemental oxygen as needed. Cardiovascular - Monitor vitals, Keep MAP>65. Gastrointestinal - Diet as tolerated. Hematology/ Oncology - Monitor CBC. Endocrine - Monitor BS. - Prevent hypoglycemia/ hyperglycemia. GI ppx: not indicated. DVT ppx: Lovenox. Bowel regimen: Miralax. Diet: Regular. Code status: Full code. Plan of care was discussed with the attending. Niyah Pinzon 06/21/24 0040: Attestations Attestation needed: supervising physician Teaching Physician Attestation Crit care w/ resident: * Time spent on critical care management aside from any procedures: 40 minutes. * Patient was critically ill due to: Cerebral edema. Questionable UTI. Hyponatremia. * My treatment and management were: Brain MRI with and without IV contrast. Neurosurgery on board, follow-up recommendations. Neurochecks every 2 hours. Patient had contaminated urine sample, will repeat urinalysis due to suspicion of UTI. If positive, urine culture and CT abdomen pelvis. Blood culture. Tylenol for fever. Rocephin 1 g daily for now. IV fluids. at 0507 at 2327 RPT #:[id number] END OF REPORT [facility] 2024-06-20 21:01:00 [facility] ([facility]) EMERGENCY PROVIDER REPORT REPORT#:[id number] REPORT STATUS: Signed DATE:06/20/24 TIME: 2100 PATIENT: JOJO HUBBARD UNIT #: [id number] ROOM/BED: AGE: 23 SEX: F PCP PHYS: Undefined Provider SERVICE AUTHOR: Darryl Alarcon MD * ALL edits or amendments must be made on the electronic/computer document * HPI-Headache Free Text HPI Notes Free Text HPI Notes 23-year-old female with no significant past medical history transferred from [facility] due to CT findings significant for cerebral edema. Patient originally presented to the ED due to less than 1 day duration of subjective fevers associated with nausea, no emesis, photophobia, fatigue, malaise and neck pain, denies any other infectious symptoms. No head trauma. No recent travel or sick contacts. Denies any neurosymptoms, or acute change in vision or hearing. No difficulty ambulating. General Initial Greet Date/Time 06/20/242004 Presentation Chief Complaint Headache Sudden in Onset? Yes Pain/Sev: Onset Moderate Review of Systems ROS Statements All systems rev neg except as marked. Focused Review of Systems Constitutional Reports: Fatigue, Malaise. GI Reports: Nausea. Past Medical History - Adult Stated Complaint R/O MENINGITIS, BRAIN EDEMA Allergies Coded Allergies: No Known Allergies (06/20/24) Physical Exam Vital Signs Vital Signs First Documented: Result Date Time Pulse Ox 97 06/20 1954 B/P 106/62 06/20 1954 B/P Mean 76 06/20 1954 O2 Delivery Room air 06/20 1954 Temp 99.0 06/20 1954 Pulse 81 06/20 1954 Resp 16 06/20 1954 Last Documented: Result Date Time Pulse Ox 100 06/20 2030 B/P 100/57 06/20 2030 B/P Mean 74 06/20 2030 Pulse 83 06/20 2030 Resp 19 06/20 2030 O2 Delivery Room air 06/20 1954 Temp 99.0 06/20 1954 Review of Vital Signs Vital signs normal Free Text PE Notes Free Text PE Notes Pt well appearing in no apparent distress, normal heart sounds, lungs CTAB, abd soft, not distended, no rebound or guarding, no CVA tenderness, no FND, PERRL, EOM intact, finger to nose intact, strength 5/5 in b/l UE and LE, ambulatory w/ steady gait, Romberg neg, no C spine tenderness, Brudzinki and Kernig neg, rest of exam benign Re-Evaluation MDM Free Text MDM Notes Free Text MDM Notes 22-year-old female transferred due to CT findings of cerebral edema, complaining of fevers, headache, photophobia, neck pain for less than 1 day duration, status post antibiotics at previous facility with negative LP, and unremarkable labs on chart review, vitals unremarkable, physical exam benign, no focal neurologic deficits, consult neurosurgery with Recs and admit, no further intervention Additional Text NSG and ICU aware, per conversation w/ NSG recommend ICU admission and MRIb ED Course Medication(s) Ordered Medication(s) Ordered: Central Nervous System Agents Sig/Dontrell Start time Last Medication Dose Route Stop Time Status Admin Ketorolac 15 MG X1ED STA 06/20 2034 DC 06/20 Tromethamine IV 06/20 Ketorolac 15 MG X1ED STA 06/20 2018 CAN Tromethamine IV 06/20 2019 Electrolytic, Caloric, And [place] Sig/Dontrell Start time Last Medication Dose Route Stop Time Status Admin Sodium Chloride 1,000 ML X1ED STA 06/20 2034 DC 06/20 IV 06/20 Gastrointestinal Drugs Sig/Dontrell Start time Last Medication Dose Route Stop Time Status Admin Metoclopramide HCl 10 MG X1ED STA 06/20 2034 DC 06/20 IV 06/20 Ondansetron HCl 4 MG X1ED STA 06/20 2034 DC 06/20 IV 06/20 Local Anesthetics (Parenteral) Sig/Dontrell Start time Last Medication Dose Route Stop Time Status Admin Lidocaine 1 PATCH ONCE ONE 06/20 2030 CAN TOPICAL 06/20 2031 Consultation Consultation 1 Referral/Consult Name Liss Lyon DO Lint Cleaner Called Neurosurgery Lint Cleaner Discussed with apartment leasing consultant Requested Call Time 2116 Requested Call Date 06/20/24 Call Returned Call returned Call Returned Time 2116 Call Returned Date 06/20/24 Consultation 2 Referral/Consult Name ; Niyah Pinzon MD Lint Cleaner Called Data Compiler Lint Cleaner Discussed with apartment leasing consultant Requested Call Time 2120 Requested Call Date 06/20/24 Call Returned Call returned Call Returned Time 2120 Call Returned Date 06/20/24 Patient Discharge Departure Vital Signs/Condition Vital Signs First Documented: Result Date Time Pulse Ox 97 06/20 1954 B/P 106/62 06/20 1954 B/P Mean 76 06/20 1954 O2 Delivery Room air 06/20 1954 Temp 99.0 06/20 1954 Pulse 81 06/20 1954 Resp 16 06/20 1954 Last Documented: Result Date Time Pulse Ox 100 06/20 2030 B/P 100/57 06/20 2030 B/P Mean 74 06/20 2030 Pulse 83 06/20 2030 Resp 19 06/20 2030 O2 Delivery Room air 06/20 1954 Temp 99.0 06/20 1954 All vital signs available at the time of this entry have been reviewed. Condition Stable Clinical Impression Clinical Impression Primary Impression: Cerebral edema Disposition Decision Hospitalize Hosp Physician Name Cirilo Ivy MD Hosp Physician Hospitalist Request Time 2134 Request Date 06/20/24 )( Accepts Hospitalization Yes )( Reason for Hospitalization Cereberal edema )( Accepted Time 2135 )( Accepted Date 06/20/24 Call Information will see patient at 2135 RPT #:[id number] END OF REPORT [facility]
[2024-06-25] MEDS ORDERED: METOCLOPRAMIDE 10 MG/2mL INJ ONE (19:22)
[2024-06-25] MEDS ORDERED: SCOPOLAMINE HYDROBROMIDE PATCH TD ONE (19:22)
[2024-06-25] MEDS ORDERED: DIPHENHYDRAMINE 50 MG/ML VIAL ONE (19:22)
[2024-06-25] MEDS ORDERED: dexAMETHasone 10 MG/ML VIAL ONE (19:22)
[2024-06-25] MEDS ORDERED: NA CHLORIDE 0.9% 1,000 ML ONE (19:23)
[2024-06-25] MEDS ORDERED: FENTANYL CITR 100 MCG/2 ML ONE (19:23)
[2024-06-25 19:59] LABS: Specific Gravity 1.014 (1.005-1.030); Sqamous Epithelial <5 /HPF (None Seen); Urine Bacteria None Seen /HPF (<20); Urine Bilirubin NEGATIVE (Negative); Urine Blood Negative (Negative); Urine Clarity Turbid (Clear); Urine Color Light-Yellow (Yellow); Urine Culture Reflex Order NOT NEEDED; Urine Glucose NEGATIVE (Negative); Urine Ketones NEGATIVE (Negative); Urine Microscopic Reflex YN ORDER UMIC; Urine Mucus 1+ /HPF (None Seen); Urine Nitrite NEGATIVE (Negative); Urine Protein NEGATIVE (Negative); Urine RBC <5 /HPF (None Seen); Urine Urobilinogen Normal (Normal); Urine WBC <5 /HPF (<5)
--- NOTE | 2024-06-25 20:17 | RAD REPORT ---
EXAM DESCRIPTION: RAD - Chest Single View - 06/25/2024 8:08 pm CLINICAL HISTORY: dizziness COMPARISON: No comparisons FINDINGS: Lines: None. Lungs: No evidence of edema or pneumonia. Pleural: No significant pleural effusions or pneumothorax. Cardiac: Enlarged cardiopericardial silhouette, probably accentuated by portable technique Mediastinum: Within normal limits. Bones: No acute fractures. Other: None IMPRESSION: No acute cardiopulmonary disease.
--- NOTE | 2024-06-25 20:45 | RAD REPORT ---
EXAM DESCRIPTION: CT - Head Brain Wo Cont - 06/25/2024 8:35 pm CLINICAL HISTORY: Headache;Dizziness COMPARISON: No comparisons TECHNIQUE: All CT scans are performed using dose optimization technique as appropriate and may inclu de automated exposure control or mA/KV adjustment according to patient size. FINDINGS: No intracranial hemorrhage, hydrocephalus or extra-axial fluid collection.No areas of brai n edema or evidence of midline shift. The paranasal sinuses and mastoids are clear. The calvarium is intact. IMPRESSION: No acute intracranial abnormality.
[2024-06-25 20:46] LABS: Absolute Lymphocytes (CBC) 1.5 K/uL (0.7-4.9); Absolute Monocytes 0.2 K/uL (0.1-1.3); Absolute Neutrophil 3.2 K/uL (1.8-8.0); Basophils % 0.5 % (0-1.3); Eosinophils % 0.9 % (0-4.4); Hematocrit 27.3 % (36.0-45.0); Lymphocytes % 30.7 % (15.3-44.8); MCH 30.3 pg (27.0-35.0); MCV 91.7 fL (80-100); MPV 10.1 fL (7.6-11.3); Monocytes % 4.3 % (3.3-12.3); Neutrophils % 63.6 % (41.7-73.7); Platelets 250 thou/uL (152-406); RBC Red Blood Cell Count 2.98 M/uL (3.86-4.86); Red Cell Distribution Width 13.8 % (12.1-15.2)
[2024-06-25 20:50] LABS: PT Prothrombin Time 11.7 SECONDS (9.4-12.5); PTT, Activated Partial Thromb 38.8 SECONDS (24.3-36.9); Protime INR 1.05
[2024-06-25 20:53] LABS: ALT/SGPT 88 U/L (13-56); AST/SGOT 37 U/L (15-37); Albumin 2.8 g/dL (3.4-5.0); Albumin/Globulin Ratio 0.7 (1.1-1.8); Alkaline Phosphatase 98 U/L (45-117); Anion Gap 9.7 mEq/L (5.0-15.0); BUN Blood Urea Nitrogen 5 mg/dL (7-18); Bicarbonate 27 mEq/L (21-32); Bilirubin Total 0.2 mg/dL (0.2-1.0); Globulin 4.3 g/dL (2.3-3.5); Glomerular Filtration Rate 136 ml/min (=/>90); Glucose Level 97 mg/dL (74-106); Potassium 3.7 mEq/L (3.5-5.1); Protein, Total 7.1 g/dL (6.4-8.2); Sodium Level 139 mEq/L (136-145); Troponin High Sensitivity 3.9 pg/mL (<58.9)
[2024-06-25 21:00] LABS: Bilirubin Direct < 0.2 mg/dL (0-0.2)
--- NOTE | 2024-06-25 22:02 | EDPHYS ---
Physician Documentation [facility] Name: Jojo Stroud Age: 23 yrs Sex: Female : 2000 Arrival Date: 06/25/2024 Time: 18:26 Bed 17 Private MD: ED Physician Taqueria Garcia HPI: 06/25 18:55 This 23 yrs old Female presents to ER via Wheelchair with complaints of cp Vomiting, Headache. 18:55 The patient presents to the emergency department with nausea, that is moderate, cp vomiting, that is intermittent. Onset: The symptoms/episode began/occurred yesterday, and became worse today. Associated signs and symptoms: Pertinent positives: headache, dizziness. Severity of symptoms: in the emergency department the symptoms are unchanged despite home interventions. 18:55 Patient reports leaving hospital after being admitted at [facility] for concern for cp brain edema or meningitis yesterday. Presents with c/o headache, dizziness, N/V. Patient reports having spinal taps times 3 while hospitalized and being given IV antibiotics. Reports being seen initially last Tuesday in [place] ED and transferred to [facility]. 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 - Infectious Disease History:: Denies. - Social history:: Smoking status: Reported history of juuling and/or vaping. ROS: 19:00 Constitutional: Negative for body aches, chills, fever, poor PO intake, cp 19:00 Eyes: Positive for photophobia, Negative for discharge, cp 19:00 ENT: Negative for drainage from ear(s), ear pain, sore throat, difficulty swallowing, difficulty handling secretions, 19:00 Cardiovascular: Negative for chest pain, palpitations, 19:00 Respiratory: Negative for cough, shortness of breath, wheezing, 19:00 Abdomen/GI: Positive for nausea and vomiting, Negative for abdominal pain, diarrhea, constipation, 19:00 : Negative for urinary symptoms, 19:00 Neuro: Positive for dizziness, headache, weakness, Negative for altered mental status, numbness, 19:00 All other systems are negative, Exam: 19:05 Constitutional: The patient appears in no acute distress, alert, awake, non-toxic, well cp developed, well nourished, uncomfortable, 19:05 Head/Face: Normocephalic, atraumatic. cp 19:05 Eyes: Periorbital structures: appear normal, Pupils: equal, round, and reactive to light and accomodation, Extraocular movements: intact throughout, Conjunctiva: normal, no exudate, no injection, Sclera: no appreciated abnormality, Lids and lashes: appear normal, bilaterally, 19:05 ENT: External ear(s): are unremarkable, Nose: is normal, Mouth: Lips: moist, Oral mucosa: moist, Posterior pharynx: Airway: no evidence of obstruction, patent, 19:05 Neck: ROM/movement: Meningeal signs: are not present, 19:05 Chest/axilla: Inspection: normal, 19:05 Cardiovascular: Rate: bradycardic, Rhythm: regular, 19:05 Respiratory: the patient does not display signs of respiratory distress, Respirations: normal, no use of accessory muscles, no retractions, labored breathing, is not present, Breath sounds: are clear throughout, no decreased breath sounds, no stridor, no wheezing, 19:05 Abdomen/GI: Inspection: abdomen appears normal, Palpation: abdomen is soft and non-tender, 19:05 Skin: no rash present. 19:05 Neuro: Orientation: to person, place \T\ time. Mentation: is normal, Cerebellar function: is grossly normal, Motor: moves all fours, strength is normal, Sensation: is normal, Vital Signs: 18:34 BP 127 / 74; Pulse 52; Resp 18; Temp 98.6; Pulse Ox 97% ; db 19:14 BP 155 / 93; Pulse 54; Resp 17; Pulse Ox 99% on R/A; pc2 21:00 BP 132 / 81; Pulse 58; Resp 16; Pulse Ox 95% on R/A; pc2 21:57 Weight 67.13 kg; Height 5 ft. 0 in. ; pc2 22:00 BP 149 / 78; Pulse 58; Resp 16; Pulse Ox 96% on R/A; pc2 21:57 Body Mass Index 28.90 (67.13 kg, 152.4 cm) pc2 MDM: 18:32 Patient medically screened. sb4 20:57 Management of patient was discussed with the following: DR Snowden, anesthesia, at this time reports uncomfortable with performing blood patch. 21:00 Data reviewed: vital signs, nurses notes, lab test result(s), EKG, radiologic studies, cp CT scan, and as a result, I will transfer patient for continuity of care. 21:00 Differential diagnosis: dehydration, sepsis, meningitis, electrolyte abnormality. cp Independent interpretation of the following test(s) in the Emergency Department EKG: See my EKG interpretation above. Counseling: I had a detailed discussion with the patient and/or guardian regarding the historical points, exam findings, and any diagnostic results supporting the discharge/admit diagnosis, lab results, radiology results, the need to transfer to another facility. Response to treatment: the patient's symptoms have markedly improved after treatment. 06/25 18:54 Order name: Basic Metabolic Panel; Complete Time: 21:39 06/25 21:39 Interpretation: Normal except: BUN 5; CRE 0.48. 06/25 18:54 Order name: CBC with Diff; Complete Time: 20:57 06/25 20:57 Interpretation: Normal except: RBC 2.98; HGB 9.0; HCT 27.3. 06/25 18:54 Order name: LFT's; Complete Time: 21:39 06/25 21:40 Interpretation: Normal except: ALT 88; IBILI, CALC 0.0; ALB 2.8; GLOB 4.3; A/G 0.7. 06/25 18:54 Order name: Magnesium; Complete Time: 21:39 06/25 18:54 Order name: PT-INR; Complete Time: 20:51 06/25 18:54 Order name: Troponin HS; Complete Time: 21:39 06/25 18:54 Order name: Ptt, Activated; Complete Time: 20:51 06/25 21:41 Interpretation: Normal except: PTT 38.8. 06/25 18:57 Order name: Test, Serum; Complete Time: 21:39 06/25 21:40 Interpretation: Reviewed. 06/25 18:57 Order name: Urinalysis w/ reflexes; Complete Time: 20:51 06/25 21:41 Interpretation: Normal except: [facility] Turbid. 06/25 20:57 Order name: Lactate w/ 2H reflex if indic.; Complete Time: 23:05 06/25 23:05 Interpretation: Reviewed. 06/25 20:57 Order name: Blood Culture Adult (2) 06/25 18:54 Order name: XRAY Chest (1 view); Complete Time: 20:51 06/25 18:57 Order name: CT Head Brain wo Cont; Complete Time: 20:51 06/25 20:52 Interpretation: Report reviewed. 06/25 18:54 Order name: Cardiac monitoring; Complete Time: 21:23 06/25 18:54 Order name: EKG - Nurse/Tech; Complete Time: 21:23 06/25 18:54 Order name: IV Saline Lock; Complete Time: 21:23 06/25 18:54 Order name: Labs collected and sent; Complete Time: 21:23 06/25 18:54 Order name: O2 Per Protocol; Complete Time: 21:23 06/25 18:54 Order name: O2 Sat Monitoring; Complete Time: 21:23 cp Administered Medications: 21:00 Drug: NS 0.9% IV 1000 ml IV at 1 bolus Per protocol; 1000 mL bolus Route: IV; Rate: 1 pc2 bolus; Site: right antecubital; 21:30 Follow up: Response: No adverse reaction; IV Status: Completed infusion; IV Intake: pc2 1000ml 21:00 Drug: metoCLOPramide IVP 10 mg IVP once; over 1 to 2 minutes Route: IVP; Site: right pc2 antecubital; 21:30 Follow up: Response: No adverse reaction pc2 21:00 Drug: diphenhydrAMINE IVP 25 mg IVP once Route: IVP; Site: right antecubital; pc2 21:30 Follow up: Response: No adverse reaction pc2 21:00 Drug: fentaNYL (PF) IVP 25 mcg IVP once Route: IVP; Site: right antecubital; pc2 21:30 Follow up: Response: No adverse reaction; RASS: Alert and Calm (0) pc2 21:00 Drug: Dexamethasone IVP 10 mg IVP once Route: IVP; Site: right antecubital; pc2 21:30 Follow up: Response: No adverse reaction pc2 21:17 Drug: scopolamine Patch 1 patches Transdermal once {Note: behind left ear.} Route: pc2 Transdermal; Site: affected area; 21:47 Follow up: Response: No adverse reaction pc2 Disposition: 06/26 13:29 Co-signature as Attending Physician, Taqueria Garcia MD I reviewed the patient's care rt provided by the Advanced Practice Provider and agree with the diagnosis and treatment plan. Disposition Summary: 06/25/24 22:02 Transfer Ordered Notes: Transfer Location: [facility] cp Reason: Higher level of care cp Condition: Stable cp Problem: new cp Symptoms: have improved cp Accepting Physician: DR Robles(06/25/24 23:11) pc2 Diagnosis - Headache cp Forms: - Medication Reconciliation Form cp - SBAR form cp Signatures: Dispatcher [employer] EDMS Jordon Reid PA PA cp Benton, Danielle, RN RN Celine Covarrubias PA-C PA-C [email or web address] Taqueria Garcia MD MD rt Rocio Sarah, RN RN pc2 Corrections: (The following items were deleted from the chart) 06/25 22:46 22:02 Doctor cp cp 23:11 22:46 DR Robles cp pc2 06/26 17:35 06/24 18:55 This 23 yrs old Female presents to ER via Wheelchair with cp complaints of Vomiting, Headache. cp 06/26 17:35 06/24 18:55 The patient presents to the emergency department with nausea, that is cp moderate, vomiting, that is intermittent, cp 06/26 17:35 06/24 18:55 Onset: The symptoms/episode began/occurred yesterday, and became worse cp today, cp 06/26 17:35 06/24 18:55 Associated signs and symptoms: Pertinent positives: headache, dizziness, cp cp 06/26 17:35 06/24 18:55 Severity of symptoms: in the emergency department the symptoms are cp unchanged despite home interventions, cp
--- NOTE | 2024-06-25 22:02 | ER ---
Nurse's Notes [facility] Name: Jojo Stroud Age: 23 yrs Sex: Female : 2000 Arrival Date: 06/25/2024 Time: 18:26 Bed 17 Private MD: Diagnosis: Headache Presentation: 06/25 18:34 Chief complaint: Patient states: HEADACHE N/V JUST SEEN AT [place] AND DISCHARGED db YESTERDAY. HAD 3 LPS ALL WERE NEGATIVE. TODAY HAS HEADACHE WITH N/V. Coronavirus screen: Client denies travel out of the [place] in the last 14 days. At this time, the client does not indicate any symptoms associated with coronavirus-19. Ebola Screen: Patient negative for fever greater than or equal to 101.5 degrees Fahrenheit, and additional compatible Ebola Virus Disease symptoms Patient denies exposure to infectious person. Patient denies travel to an Ebola-affected area in the 21 days before illness onset. No symptoms or risks identified at this time. Initial Sepsis Screen: Does the patient meet any 2 criteria? No. Patient's initial sepsis screen is negative. Does the patient have a suspected source of infection? No. Patient's initial sepsis screen is negative. Risk Assessment: Do you want to hurt yourself or someone else? Patient reports no desire to harm self or others. Onset of symptoms was June 25, 2024. 18:34 Method Of Arrival: Wheelchair db 18:34 Acuity: KIERSTEN 3 db Triage Assessment: 18:42 General: Appears in no apparent distress. uncomfortable, Behavior is calm, cooperative. db Pain: Complains of pain in abdomen. Neuro: Level of Consciousness is awake, alert, obeys commands, Oriented to person, place, time, situation. Cardiovascular: No deficits noted. Respiratory: Airway is patent Respiratory effort is even, unlabored, Respiratory pattern is regular, symmetrical. GI: Reports nausea, vomiting. 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 - Infectious Disease History:: Denies. - Social history:: Smoking status: Reported history of juuling and/or vaping. Screenin:18 [facility] ED Fall Risk Assessment (Adult) History of falling in the last 3 months, pc2 including since admission No falls in past 3 months (0 pts) Confusion or Disorientation No (0 pts) Intoxicated or Sedated No (0 pts) Impaired Gait No (0 pts) Mobility Assist Device Used No (0 pt) Altered Elimination No (0 pt) Score/Fall Risk Level 0 - 2 = Low Risk Oriented to surroundings, Maintained a safe environment, Hourly rounding (assess needs \T\ fall precautionary measures) done. Abuse screen: Denies threats or abuse. Denies injuries from another. Nutritional screening: No deficits noted. Tuberculosis screening: No symptoms or risk factors identified. Assessment: 19:19 Reassessment: Patient appears in no apparent distress at this time. Patient and/or pc2 family updated on plan of care and expected duration. Pain level reassessed. General: Appears in no apparent distress. uncomfortable, well groomed, well developed, Behavior is calm, cooperative, appropriate for age. Pain: Complains of pain in head. Neuro: White Agitation-Sedation Scale (RASS): 0 - Alert and Calm Level of Consciousness is awake, alert, obeys commands, Oriented to person, place, time, situation, Appropriate for age Reports headache occipital area. Cardiovascular: Patient's skin is warm and dry. Rhythm is regular Chest pain is denied. Respiratory: Airway is patent Respiratory effort is even, unlabored, Respiratory pattern is regular, symmetrical. GI: Abdomen is non-distended, Bowel sounds present X 4 quads. Reports nausea, vomiting. : No signs and/or symptoms were reported regarding the genitourinary system. Urine is clear. EENT: No signs and/or symptoms were reported regarding the EENT system. Derm: No signs and/or symptoms reported regarding the dermatologic system. Musculoskeletal: No signs and/or symptoms reported regarding the musculoskeletal system. Vital Signs: 18:34 BP 127 / 74; Pulse 52; Resp 18; Temp 98.6; Pulse Ox 97% ; db 19:14 BP 155 / 93; Pulse 54; Resp 17; Pulse Ox 99% on R/A; pc2 21:00 BP 132 / 81; Pulse 58; Resp 16; Pulse Ox 95% on R/A; pc2 21:57 Weight 67.13 kg; Height 5 ft. 0 in. ; pc2 22:00 BP 149 / 78; Pulse 58; Resp 16; Pulse Ox 96% on R/A; pc2 21:57 Body Mass Index 28.90 (67.13 kg, 152.4 cm) pc2 ED Course: 18:30 Patient arrived in ED. mr 18:32 Celine Estrada PA-C is PHCP. sb4 18:32 Taqueria Garcia MD is Attending Physician. sb4 18:33 PHCP role handed off by Celine Estrada PA-C cp 18:33 Jordon Reid PA is PHCP. cp 18:42 Triage completed. db 18:42 Arm band placed on Patient placed in an exam room. db 19:04 Rocio Sarah, RN is Primary Nurse. pc2 19:32 Patient has correct armband on for positive identification. Bed in low position. Call pc2 light in reach. Side rails up X2. Provided Education on: POC and time frame. 19:55 Client placed on continuous cardiac and pulse oximetry monitoring. NIBP monitoring pc2 applied. 20:09 XRAY Chest (1 view) In Process Unspecified. EDMS 20:10 X-ray(s) taken. pc2 20:20 Missed attempt(s): 22 gauge Bleeding controlled, band aid applied, catheter tip intact. oe 20:26 Inserted saline lock: 20 gauge in right antecubital area, using aseptic technique. oe Blood collected. Flushed with 10 mL NS. 20:[address] pc2 20:37 CT Head Brain wo Cont In Process Unspecified. EDMS 21:55 Initiated transfer with Lisbeth at [facility]. rv1 22:[address] Robles at [facility] to the ER. rv1 22:25 Report given to KAREN Summers receiving patient to [facility]. pc2 22:34 Called Emily at EMS for truck, given 10-15 min ETA. rv1 23:03 Report given to [facility] at bedside. pc2 23:04 No provider procedures requiring assistance completed. pc2 23:05 Patient transferred, IV remains in place. pc2 Administered Medications: 21:00 Drug: NS 0.9% IV 1000 ml IV at 1 bolus Per protocol; 1000 mL bolus Route: IV; Rate: 1 pc2 bolus; Site: right antecubital; 21:30 Follow up: Response: No adverse reaction; IV Status: Completed infusion; IV Intake: pc2 1000ml 21:00 Drug: metoCLOPramide IVP 10 mg IVP once; over 1 to 2 minutes Route: IVP; Site: right pc2 antecubital; 21:30 Follow up: Response: No adverse reaction pc2 21:00 Drug: diphenhydrAMINE IVP 25 mg IVP once Route: IVP; Site: right antecubital; pc2 21:30 Follow up: Response: No adverse reaction pc2 21:00 Drug: fentaNYL (PF) IVP 25 mcg IVP once Route: IVP; Site: right antecubital; pc2 21:30 Follow up: Response: No adverse reaction; RASS: Alert and Calm (0) pc2 21:00 Drug: Dexamethasone IVP 10 mg IVP once Route: IVP; Site: right antecubital; pc2 21:30 Follow up: Response: No adverse reaction pc2 21:17 Drug: scopolamine Patch 1 patches Transdermal once {Note: behind left ear.} Route: pc2 Transdermal; Site: affected area; 21:47 Follow up: Response: No adverse reaction pc2 Medication: 21:21 VIS not applicable for this client. pc2 Intake: 21:30 IV: 1000ml; Total: 1000ml. pc2 Outcome: 22:02 ER care complete, transfer ordered by . moriah 23:04 Transferred by ground [facility] [place]. to other acute care facility: [facility]. pc2 Transfer form completed. 23:04 Condition: stable 23:04 Instructed on the need for transfer, Demonstrated understanding of instructions, 23:11 Patient left the ED. pc2 Signatures: Dispatcher [employer] EDPA Denise Calderon, Reg Reg mr Jordon Reid, PA PA Daryn Johnson Danielle, RN RN Celine Covrarubias, PA-C PA-C sb4 Lisbeth Blank rv1 Rocio Sarah, RN RN pc2 Corrections: (The following items were deleted from the chart) 23:10 21:[address] Robles at [facility] to the ER rv1 rv1
[2024-06-25 23:15] VITALS: TEMP 98.6
[2024-06-25 23:20] VITALS: BP 149/78; O2SAT 96
== END 2024-06-25 23:11 | disposition short-term general hospital (02) ==
LOC: ER 18:26
DX: R51.9 Headache, unspecified (principal); R42 Dizziness and giddiness; R11.2 Nausea with vomiting, unspecified
CPT/HCPCS: 96374; 96375; 99285